=== PATIENT | male | born 1945 | race Caucasian/White ===

== ENCOUNTER 2017-10-03 07:58 | Inpatient (IN) ==
--- NOTE | 2017-10-03 08:11 | Emergency Department Report ---
Medical Clearance HPI - General Stated complaint: Olvin clearence Time Seen by Provider: 10/03/17 08:08 Source: patient, family Mode of arrival: ambulatory Limitations: no limitations - History of Present Illness HPI Narrative: Patient is a 71-year-old male, presents emergency room for "medical clearance". Patient recently diagnosis of Alzheimer's, has been having increasing hallucinations and paranoia. [facility] was contacted patient's screening appropriately, however patient was referred to the ER for medical clearance. Patient denies any systemic signs or symptoms with the exception of a mild cough in the last 24 hours with congestion. MD complaint: medical clearance requested Reason for Medical Clearance: psychiatric condition Home medications: Home Medications Medication Instructions Recorded Confirmed Dabigatran [Pradaxa] 1 cap PO BID 10/03/17 10/03/17 Fenofibrate [Lofibra] 160 mg PO DAILY 10/03/17 10/03/17 LORazepam [Ativan] 0.5 mg PO BID PRN 10/03/17 10/03/17 Lisinopril [Zestril] 20 mg PO BID 10/03/17 10/03/17 Multivitamin [One Daily] 1 tab PO DAILY 10/03/17 10/03/17 Quetiapine Fumarate [Seroquel] 2 mg PO TID 10/03/17 10/03/17 Sertraline [Zoloft] 1 tab PO DAILY 10/03/17 10/03/17 Triamterene/Hydrochlorothiazid 0.5 tab PO DAILY 10/03/17 10/03/17 [Triamterene-Hctz 37.5-25 mg Cp] dilTIAZem HCl [Dilt-Xr] 1 tab PO DAILY 10/03/17 10/03/17 Allergies/Adverse reactions: Allergies Allergy/AdvReac Type Severity Reaction Status Date / Time No Known Allergies Allergy Verified 10/03/17 08:05 Review of Systems Constitutional: Denies: fever, chills, weakness Eyes: Denies: eye pain, eye discharge ENT: Reports: congestion. Denies: throat pain, dental pain Cardiovascular: Denies: chest pain, palpitations, dyspnea on exertion Respiratory: Reports: cough. Denies: dyspnea, wheezes, hemoptysis Gastrointestinal: Denies: abdominal pain, nausea, vomiting Genitourinary: Denies: dysuria, frequency Musculoskeletal: Denies: back pain Psychiatric: Denies: anxiety, depression Endocrine: Denies: fatigue, heat or cold intolerance PFSH Patient Stated Medical History Alzheimer's Disease Yes Cardiac Arrhythmia Yes: afib Hypertension Yes Hx Benign Prostatic Yes: 2017 Hyperplasia - Social History Smoking status: Never smoker Substance use type: does not use Alcohol intake frequency: does not drink Physical Exam - Limitations Limitations: no limitations - General General appearance: alert, in no apparent distress - Head Head exam: normocephalic - Eye Eye exam: Present: PERRL, EOMI - ENT ENT exam: Present: normal oropharynx, mucous membranes moist - Neck Neck exam: Present: full ROM, trachea midline. Absent: tenderness - Chest Chest inspection: Present: symmetric chest wall rise. Absent: tenderness - Respiratory Respiratory exam: Present: normal lung sounds bilaterally. Absent: respiratory distress, wheezes, stridor - Cardiovascular Cardiovascular exam: Present: regular rate, normal rhythm, normal heart sounds - Abdominal Exam Abdominal exam: Present: soft, normal bowel sounds. Absent: distention, tenderness - Extremities Exam Extremities exam: Present: other (patient with bilateral 2+ pitting edema) - Back Exam Back exam: Present: full ROM - Skin Skin exam: Present: warm, dry - Neurological Exam Neurological exam: Present: alert, oriented X3 - Psychiatric Psychiatric exam: Present: normal affect, normal mood Course Vital Signs Temperature 97.4 F 10/03/17 08:06 Pulse Rate 82 10/03/17 08:06 Respiratory Rate 16 10/03/17 08:06 Blood Pressure 132/83 10/03/17 08:06 Pulse Oximetry 95 10/03/17 08:06 Temperature 97.4 F 10/03/17 08:06 Pulse Rate 82 10/03/17 08:06 Respiratory Rate 16 10/03/17 08:06 Blood Pressure 132/83 10/03/17 08:06 Pulse Oximetry 95 10/03/17 08:06 Medical Clearance - Medical Records Attestation: I reviewed the patient's medical records. - Lab Data Attestation: I reviewed the patient's lab results. Result diagrams: 10/03/17 08:29 10/03/17 08:29 Lab Results 10/03/17 10/03/17 10/03/17 Range/Units 08:29 08:29 09:05 WBC 4.2 L (4.5-11.0) T/MM3 RBC 4.27 L (4.50-5.90) M/MM3 Hgb 10.1 L (13.5-17.5) GM/DL Hct 34.3 L (41-53) % MCV 80.3 (80-100) UM3 MCH 23.7 L (26-34) UUG MCHC 29.4 L (31-37) GM/DL RDW Std Deviation 53.2 H (36.9-50.2) FL Plt Count 368 (130-400) T/MM3 MPV 8.5 L (9.4-12.4) UM3 Immature Gran % (Auto) 0.2 (0.0-0.5) % Neut % (Auto) 64.0 (33-66) % Lymph % (Auto) 24.0 (23-45) % Dent % (Auto) 9.6 H (0-9.0) % Eos % (Auto) 1.7 (0-4) % Baso % (Auto) 0.5 (0-2) % Neut # (Auto) 2.7 (1.8-7.7) T/MM3 Lymph # (Auto) 1.0 (1-4.8) T/MM3 Dent # (Auto) 0.4 (0-0.8) T/MM3 Eos # (Auto) 0.1 (0-0.5) T/MM3 Baso # (Auto) 0.0 (0-0.2) T/MM3 Abs Immat Gran (auto) 0.01 (0.00-0.03) T/MM3 Turbidity < 20 (0-20) Sodium 142 (134-144) MEQ/L Potassium 4.2 (3.6-5) MEQ/L Chloride 105 (98-107) MEQ/L Carbon Dioxide 28 (22-30) MEQ/L Anion Gap 9 (5-15) MEQ/L BUN 22.0 H (9-20) MG/DL Creatinine 1.0 (0.8-1.5) MG/DL GFR Calculation 73 BUN/Creatinine Ratio 22 (6-26) RATIO Glucose 93 (75-110) MG/DL Calculated Osmolality 276 (261-280) MOSM/KG Calcium 9.5 (8.4-10.2) MG/DL Total Bilirubin 0.20 (0.20-1.30) MG/DL Icterus Index < 2 (0-7) AST 29 (17-59) U/L ALT 35 (21-72) U/L Alkaline Phosphatase 50 (38-126) U/L Total Protein 6.9 (6.3-8.2) G/DL Albumin 4.1 (3.5-5.0) G/DL Globulin 2.8 (2.4-3.6) G/DL Albumin/Globulin Ratio 1.5 (1.1-2.2) RATIO Specimen Hemolysis < 15 (0-25) Ur Collection Type Urine, void-cc/notcc Urine Color Yellow (YELLOW) Urine Clarity Clear Urine pH 6.0 (5.0-8.0) Ur Specific Wentworth <=1.005 L (1.015-1.025) Urine Protein Negative (NEGATIVE) Urine Glucose (UA) Negative (NEGATIVE) Urine Ketones Negative (NEGATIVE) Urine Occult Blood Negative (NEGATIVE) Urine Nitrate Negative (NEGATIVE) Urine Bilirubin Negative (NEGATIVE) Urine Urobilinogen 0.2 (NORMAL) EU/DL Ur Leukocyte Esterase Negative (NEGATIVE) Urinalysis Comment Microscopic not ind. - Radiology Data Attestation: I reviewed the patient's radiology results. Chest x-ray: Cardiomegaly, no acute infiltrates - EKG Data EKG #1 EKG attestation: Yes: I reviewed and interpreted this EKG. Rate: normal Rhythm: A.Fib Calvert/QRS: normal Interpretation: no acute changes Disposition Clinical Impression: Alzheimer's dementia with behavioral disturbance Qualifiers: Alzheimer's disease onset: unspecified onset Qualified Code(s): G30.9 - Alzheimer's disease, unspecified; F02.81 - Dementia in other diseases classified elsewhere with behavioral disturbance [place] 64 [place] [facility] Condition: Stable Prescriptions: No Action LORazepam [Ativan] 0.5 mg PO BID PRN PRN Reason: Anxiety Quetiapine Fumarate [Seroquel] 2 mg PO TID Sertraline [Zoloft] 1 tab PO DAILY Dabigatran [Pradaxa] 1 cap PO BID Triamterene/Hydrochlorothiazid [Triamterene-Hctz 37.5-25 mg Cp] 0.5 tab PO DAILY Lisinopril [Zestril] 20 mg PO BID dilTIAZem HCl [Dilt-Xr] 1 tab PO DAILY Multivitamin [One Daily] 1 tab PO DAILY Fenofibrate [Lofibra] 160 mg PO DAILY Time of Disposition: 09:14 - Seen By: physician
--- OUTSIDE RECORDS SUMMARY | 2017-10-03 08:47 | External Medical Summary | Continuity of Care Document ---
:1945 Author Organization [facility] Care Team Providers Name Role Phone LOYDA MEYER Admitting Physician LOYDA MEYER Attending Physician Hospital Admission Diagnosis No data in the System Social History Element Code Description Smoking Start Date End Date Description Status Code System Smoking Status 969350728 Never smoker SNOMED-CT Problems Code Code System Problem Name Start Date End Date Status 99438934 SNOMED-CT Urinary tract 12/27/2016 Active infectious disease UTI SYMPTOMS 01/28/2016 Active LEFT EYE 06/11/2015 Active IRRITATION Medications RxNorm Medication Dose Route Instructions Indications Start End Status Date Date 06450 ferrous sulfate Oral orally 3 Active times per week (pt unsure of dosage) 5487 Hydrochlorothiazid Oral orally 2 Active e times per day (pt unsure of dose) 50631 Lisinopril Oral orally every Active day (pt unsure of dose) 6102830 rivaroxaban 20 MG 20 Oral orally every Active Oral Tablet milligram day (administer with evening meal;) 1191 Aspirin 81 Oral orally 3 No milligram times per Longer week Active 8703 Fenofibrate Oral orally every No day (swallow Longer whole; do not Active crush, chew, break, dissolve, or cutpt unsure of dose) 6918 Metoprolol Oral orally once No (pt unsure of Longer dose) Active Allergies Code Code Allergy Type Reaction Severity Start End Status System Substance Date Date 7944 RXNorm Penicillins Drug Unknown 06/11/20 Active allergy 15 Results No data in the system Vital Signs No data in the system Plan of Care No data in the system Procedures No data in the system Encounters No data in the system Immunizations No data in the system Functional Status No data in the system Hospital Discharge Instructions No data in the system
--- OUTSIDE RECORDS SUMMARY | 2017-10-03 08:47 | External Medical Summary | Continuity of Care Document ---
:1945 Author Organization [facility] Care Team Providers Name Role Phone LOYDA MEYER Admitting Physician LOYDA MEYER Attending Physician Hospital Admission Diagnosis No data in the System Social History Element Code Description Smoking Start Date End Date Description Status Code System Smoking Status [id number] Never smoker SNOMED-CT Problems Code Code System Problem Name Start Date End Date Status PAIN UNDER R 05/04/2017 Active AXILLA 52309081 SNOMED-CT Urinary tract 12/27/2016 Active infectious disease UTI SYMPTOMS 01/28/2016 Active LEFT EYE 06/11/2015 Active IRRITATION Medications RxNorm Medication Dose Route Instructions Indications Start End Status Date Date 0588474 dabigatran 150 oral orally 2 times Active etexilate 150 MG milligram per day Oral Capsule (administer at approximately the same time(s) each day;) 3443 Diltiazem 180 oral orally every Active milligram morning 887418 Fenofibrate 160 160 oral orally every Active MG Oral Tablet milligram day 524763 Hydrochlorothiazi 0.5 oral orally every Active de 25 MG / capsule morning Triamterene 37.5 (administer MG Oral Capsule after a meal;) 528644 Lisinopril 20 MG 20 oral orally 2 times Active Oral Tablet milligram per day (pt unsure of dose) 448437 rivastigmine 1.5 oral orally 2 times Active milligram per day 1191 Aspirin 81 oral orally 3 times No milligram per week Longer Active 8703 Fenofibrate oral orally every No day (swallow Longer whole; do not Active crush, chew, break, dissolve, or cutpt unsure of dose) 82981 ferrous sulfate oral orally 3 times No per week (pt Longer unsure of Active dosage) 5487 Hydrochlorothiazi oral orally 2 times No de per day (pt Longer unsure of Active dose) 6918 Metoprolol oral orally once No (pt unsure of Longer dose) Active 0578311 rivaroxaban 20 MG 20 oral orally every No Oral Tablet milligram day Longer (administer Active with evening meal;) Allergies Code Code Allergy Type Reaction Severity Start End Status System Substance Date Date 7985 RXNorm Penicillins Drug Unknown 06/11/20 Active allergy 15 Results Laboratory Results Order: UrinalysisLegend: D=Delta, H=High, L =Low, HH=Critical High, LL=Critical Low, AA=Critical Alpha-Numeric, C=Corrected , A=Abnormal LOINC Test Result Flag Range Units Date 5778-6 Yellow 07/20/2017 1Color Ur 13:35 08904-3 Clear 07/20/2017 1Clarity Ur 13:35 2966-0 1Sp 1.015 1.005-1.030 07/20/2017 Gr 24h Ur 13:35 2756-5 1pH 7.0 5.0-7.0 07/20/2017 Ur 13:35 89261-5 Negative NEGATIVE 07/20/2017 1Leukocyte 13:35 esterase Ur-aCnc 13067-6 Negative NEGATIVE 07/20/2017 1Nitrite Ur Ql 13:35 Strip.auto 69185-9 Negative NEGATIVE 07/20/2017 1Prot 13:35 Tiss-mCnt 2349-9 Negative NEGATIVE 07/20/2017 1Glucose Ur Ql 13:35 58561-1 1MEK Negative NEGATIVE 07/20/2017 Ur-mCnc 13:35 1977-8 Negative NEGATIVE 07/20/2017 1Bilirub Ur Ql 13:35 02346-3 0.2 <=1.0 07/20/2017 1Urobilinogen 13:35 Ur Ql 933-2 1Bld Negative NEGATIVE 07/20/2017 Prod Typ BPU 13:35 00800-9 N 07/20/2017 1Micro UrnS 13:35 Performing Lab Footnotes:[id number] [address] [place] [id number] - [facility] Vital Signs No data in the system Plan of Care No data in the system Procedures No data in the system Encounters No data in the system Immunizations Vaccine Code Code System Vaccine Name Date Status 141 CVX Influenza, 04/26/2017 Completed seasonal, injectable Functional Status No data in the system Hospital Discharge Instructions No data in the system
--- OUTSIDE RECORDS SUMMARY | 2017-10-03 08:47 | External Medical Summary | Continuity of Care Document ---
:1944 Author Organization [facility] Care Team Providers Name Role Phone [employer] Unavailable Unavailable Encounters Location Location Encounter Encounter Reason Attending ADM DC Status Source Details Type Number For Provider Date Date Visit Ritesh BRUNO Active [facility]
--- OUTSIDE RECORDS SUMMARY | 2017-10-03 08:47 | External Medical Summary | Encounter Summary ---
:1944 Author Organization [facility] Address [address] [place] [address] Phone Care Team Providers Name Role Phone Henrik Brown MD Primary Care Provider Jorgito Varner MD Unavailable Reason for Visit Reason Comments General Question medication question Encounter Details Date Type Department Care Team Description 09/08/2017 Telephone [facility] René Navas General Question Physicians - Neurology (medication question) [address] [facility] [address] [facility] [address] [place] [address] [place] [address] [place] [address] Social History Tobacco Use Types Packs/Day Years Used Date Never Smoker Smokeless Tobacco: Never Used Alcohol Use Drinks/Week oz/Week Comments No Sex Assigned at Date Recorded Not on file as of this encounter Miscellaneous Notes Telephone Encounter - Gricel Philip LPN - 09/22/2017 3:21 PM Ruby called today to follow up with our previous conversation regarding the Seroquel. She stated that she has now, since the last time we spoke, have increased it all the way up to 6 tabs a day and it is not helping anything at all. This nurse has tried to call Dr. Henrik Brown's office today with busy signal then the next time, the manager package relayed that Dr. Brown has been out of the office forthe passed 2 weeks. At this time, Kassie called and it was relayed that Dr. Brown had been out of the office for the past 2 weeks and Kassie relayed that she has been speaking with Dr. Varner, the patients Psychiatrist and he has been helping with figuring out the Seroquel dosing as well as added Ativan0.5mg BID/PRN. At this time it was suggested to continue the medication management with Dr. Varner and if there is anything that he would like to discuss with our doctor to call our office.Telephone Encounter - Gricel Philip, ALO - 09/08/2017 12:47 PM PROCESS OWNER Kassie called to relay that at the apt a few weeks ago, the doctor started Seroquel 25mg at bedtime with the suggestion that it could be increased if needed. Kassie relayed that she did not feel like the medication was not working , he is still agitated and the hallucinations are still continuing.At this time , this nurse relayed that we are not able to take the hallucinations away, we are able to help deal with the behaviors that come from them. Kassie stated that she understood, this nurse asked what types of things is he doing when he takes the medication to let you know it is not working? Kassie relayed that for about 2 weeks she was giving the 25mg dose at bedtime, and he was sleeping better but not well, so she increased it herself to 2 tabs=50mg. Last week per Kassie, they saw their PCP and he suggested that maybe he just needed and extra dose in the morning with the bedtime dose to keep him calmer throughout the day , but to double check with our office to see if that was an appropriate action. Kassie stated that the reason for the suggestion was because around noon until about 7 or8 when she gives the bedtime dose of 50mg, he is just very combative, agitated. Kassie said that he has been on the 50mg for a week now and this morning she went ahead and started the suggestion of theprimary care and gave him a 25mg dose this morning and was going to watch and see how long it will work for today. Kassie wanted to know if this would be ok with Dr. Navas. This nurse relayed that this note would be routed to the doctor for further review and instructions and a call back would be made. At this time, it is noted that this patient is now taking Seroquel 25mg in the morning and 50mg at bedtime for a total of 75mg for the day. This nurse will follow up at the end of the day to seehow the 25mg AM dose went.in this encounter Plan of Treatment Not on fileas of this encounter Visit Diagnoses Not on filein this encounter
--- OUTSIDE RECORDS SUMMARY | 2017-10-03 08:47 | External Medical Summary | Summary of Care ---
:1945 Author Name Mariaelena Lee M.D. Address Unavailable Unavailable , Care Team Providers Name Role Phone Mariaelena Lee M.D. [place] Unavailable Unavailable Henrik Brown Unavailable Unavailable Unavailable Unavailable Unavailable Functional Status Functional Status Health Issues Name Dates Details Functional status health issues are not documented Status: Cognitive Status Health Issues Name Dates Details Cognitive status health issues are not documented Status: Problems Name Dates Details Memory loss (780.93, R41.3) Status: Active Hallucinations, visual (368.16, R44.1) Status: Active Low back pain with right-sided sciatica (724.3, M54.41) Status: Active Medications Name Dates Details AmLODIPine Besylate 5 MG Oral Tablet TAKE 1 TABLET DAILY. Refills: 0 Hudson Lee M.D. Start 14-Jun-2016 Active Lisinopril 20 MG Oral Tablet TAKE 1 TABLET TWICE DAILY. Refills: 0 Hudson Lee M.D. Start 14-Jun-2016 Active Triamterene-HCTZ 75-50 MG Oral Tablet TAKE 1/2 TABLET DAILY. Refills: 0 Hudson Lee M.D. Start 14-Jun-2016 Active Fenofibrate 160 MG Oral Tablet TAKE 1 TABLET DAILY. Quantity: 30 Refills: 0 Hudson Lee M.D. Start 14-Jun-2016 Active Aspirin 81 MG Oral Tablet Delayed Release TAKE 1 TABLET DAILY. Refills: 0 Hudson Lee M.D. Start 14-Jun-2016 Active Allergy 10 MG Oral Tablet TAKE 1 TABLET DAILY. Refills: 0 Hudson Lee M.D. Start 14-Jun-2016 Active Tylenol Extra Strength 500 MG Oral Tablet TAKE 2 TABLETS EVERY 6 HOURS Refills: 0 Hudson Lee M.D. Start 14-Jun-2016 Active Advil 200 MG Oral Capsule TAKE 1 CAPSULE EVERY 4 TO 6 HOURS. Refills: 0 Hudson Lee M.D. Start 14-Jun-2016 Active Allergies and Adverse Reactions Name Dates Details Penicillins (Allergy) Status: Active Past Medical History Name Dates Details History of dizziness (V13.89, Z87.898) Status: Resolved History of Enlarged prostate (600.00, N40.0) Status: Resolved History of fracture of clavicle (V15.51, Z87.81) Status: Resolved History of hematuria (V13.09, Z87.448) Status: Resolved History of hypertension (V12.59, Z86.79) Status: Resolved History of Kidney stone on left side (592.0, N20.0) Status: Resolved History of Numbness of right hand (782.0, R20.0) Status: Resolved History of presbycusis (V12.49, Z86.69) Status: Resolved History of sciatica (V12.49, Z86.69) Status: Resolved History of Tinnitus of both ears (388.30, H93.13) Status: Resolved Procedures Procedure Dates Details History of Abdominal Surgery History of Colonoscopy (Fiberoptic) Procedures not documented Immunization Name Dates Details Immunizations not documented Family History Mother Name Dates Details Family history of Alzheimer's disease (V17.2, Z82.0) Status: Active Father Name Dates Details Family history of dementia (V17.2, Z81.8) Status: Active Family history of Parkinson's disease (V17.2, Z82.0) Status: Active Social History Name Dates Details - Status: Smoking Status Name Dates Details Never smoker Vital Signs Date Test Result Details 14-Jun-2016 11:08 BP Systolic 138 mm[Hg] Status: Comments: Location: LUE; Position: Sitting BP Diastolic 82 mm[Hg] Status: Comments: Location: LUE; Position: Sitting Heart Rate 74 /min Status: Comments: Location: ; Height 70 in Status: Weight 234.2 lb Status: Physical Findings 96 Status: Comments: O2 Saturation Body Mass Index Calculated 33.6 kg/m2 Status: Body Surface Area Calculated 2.23 m2 Status: Results Date Description Value Details Results not documented Plan of Care Name Dates Details Planned Observations Planned Goals not documented Planned Encounters Appointment; Provider: Hudson Lee M.D. On 03-Sep-2016 11:30 Instructions Name Dates Details Instructions not documented Encounters Appointment; Hudson Lee M.D. On 14-Jun-2016 Encounter Diagnosis: Problem not documented 11:00
--- OUTSIDE RECORDS SUMMARY | 2017-10-03 08:47 | External Medical Summary | Encounter Summary ---
:1945 Author Organization [facility] Address [address] [place] [address] Phone Care Team Providers Name Role Phone Henrik Brown MD Primary Care Provider Jorgito Varner MD Unavailable Reason for Visit Reason Comments General Question notes Encounter Details Date Type Department Care Team Description 09/23/2017 Telephone [facility] René Navas General Question Physicians - Neurology (notes) [address] [facility] [address] [facility] [address] [place] [address] [place] [address] [place], [place] [id number] Social History Tobacco Use Types Packs/Day Years Used Date Never Smoker Smokeless Tobacco: Never Used Alcohol Use Drinks/Week oz/Week Comments No Sex Assigned at Date Recorded Not on file as of this encounter Miscellaneous Notes Telephone Encounter - Gricel Philip LPN - 09/23/2017 2:38 PM CSTLinda called to ask if the last visit note could be faxed to both Dr. Brown and Dr. Varner as they both have not received any notes yet. At this time, last visit note has been faxed to both doctors with confirmation of receipts. Kassie was notified.in this encounter Plan of Treatment Not on fileas of this encounter Visit Diagnoses Not on filein this encounter
--- OUTSIDE RECORDS SUMMARY | 2017-10-03 08:47 | External Medical Summary | Encounter Summary ---
:1945 Author Organization [facility] Address [address] [place] [address] Phone Care Team Providers Name Role Phone Henrik Brown MD Primary Care Provider Reason for Visit Reason Comments Memory Loss New patient Consult, Test & Treat (Routine) Status Reason Specialty Diagnoses / Referred By Referred To Procedures Contact Contact No Auth Needed Neurology Diagnoses DEMENTIA Swerdlow, Procedures NEW PATIENT MD René [address] [place] [address] Encounter Details Date Type Department Care Team Description 08/10/2017 Office Visit [facility] René Navas, Alzheimer' s disease of Physicians - other onset with Neurology [address] behavioral disturbance [address] (Primary Dx) [address] [place] [phone] Social History Tobacco Use Types Packs/Day Years Used Date Never Smoker Smokeless Tobacco: Never Used Tobacco Cessation: Counseling Given: No Alcohol Use Drinks/Week oz/Week Comments No Sex Assigned at Date Recorded Not on file as of this encounter Last Filed Vital Signs Vital Sign Reading Time Taken Blood Pressure 150/98 08/10/2017 2:09 PM JAVA J2EE TECHNICAL LEAD Pulse 91 08/10/2017 2:09 PM JAVA J2EE TECHNICAL LEAD Temperature - - Respiratory Rate - - Oxygen Saturation - - Inhaled Oxygen Concentration - - Weight 125.6 kg (277 lb) 08/10/2017 2:09 PM JAVA J2EE TECHNICAL LEAD Height 177.8 cm (5' 10") 08/10/2017 2:09 PM JAVA J2EE TECHNICAL LEAD Body Mass Index 39.75 08/10/2017 2:09 PM JAVA J2EE TECHNICAL LEAD in this encounter Progress Notes René Navas MD - 08/10/2017 3:30 PM CSTFormatting of this note may be different from the original. Date of Service: 08/10/2017 Subjective: Mayco Rose is a 71 y.o. male. History of Present Illness Lizzy a 71 y.o.referred to us for issues of cognition. With hallucinations. History obtained from: patient and (Kassie) and son (Jose Luis) Duration: ~2 years of cognitive change, about 1.5 years of hallucinations. Course: Progressive Severity: Loss of ADL independence Other Course Details: Card playing confusion noted about 2 years ago. Hallucinations since summer. Saw Dr. Brown about his memory issues about 1.[address] Brown referred him to a neurologist who did an EEG, who put him on galantamine, but the hallucinations worsened. He was switched to rivastigmine, which Miguelangel felt made him worse. He has not tried donepezil or memory. There is concern for AD or DLB. 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 The hallucinations are of people and animals; they interfere with his daily life in that atnight, he spends excessive time securing the house at night to try and keep people out. When he is redirected about a hallucination, he accepts it easily enough, but then forgets about the redirection and goes back to that. The other day he did not recognize his . Also some delusions: he is convinced his neighbor is "a drug dealer" who is dealing drugs. AD8 Problems with judgement: Yes Reduced interest in hobbies or activities: Yes Repeats questions, stories, or statements: Yes (can no longer play canasta) Trouble learning to use tools, appliances, gadgets: Yes No longer texts Forgets correct month or year: Yes Difficulty handing financial matters or bills: Yes Difficulty remembering appointments: Yes Consistent problems with thinking or memory: Yes OTHER FUNCTIONS Problems with shopping: Yes Problems with cooking: Yes Problems with driving: Yes Problems with managing medications: Yes PREVIOUS EVALUATIONS Labs Done on the outside Imaging MRI recently done x2. 08/07 MRI: scattered small patches of WMH, mostly posteriorly. Diffuseatrophy. There is some relatively pronounced anterior temporal atrophy. Neuropsych Testing: Other Tests: PAST MEDICAL HISTORY Relevant PMH: afib, htn, dementia MEDICATIONS Relevant Medications:Includes sertraline, pradaxa ALLERGIES Allergies: Allergies no known allergies FAMILY HISTORY Relevant Family History: Parent with senile dementia (mother dx'd with AD in her 70's); dad had dementia in his 80s SOCIAL HISTORY Current or past heavy alcohol use: No Education level: college Occupation: CPA, [employer] Lives with: with in [facility] REVIEW OF SYSTEMS Depressed mood: Yes Sleep problems: No Hallucinations: Yes Balance problems: No Urinary incontinence: No, recent turp Other system problems: Review of Systems Constitutional: Negative for chills. HENT: Negative for facial swelling. Eyes: Negative for discharge. Respiratory: Negative for choking. Cardiovascular: Negative for palpitations. Gastrointestinal: Negative for vomiting. Genitourinary: Negative for flank pain. Skin: Negative for wound. Neurological: Negative for seizures. Hematological: Negative for adenopathy. Psychiatric/Behavioral: Negative for self-injury. Objective: Cranberry 500 mg cap Take 1 capsule by mouth daily. dabigatran (PRADAXA) 150 mg capsule Take 150 mg by mouth twice daily. diltiazem CD (CARDIZEM CD) 180 mg capsule Take 180 mg by mouth daily. fenofibrate(+) (TRIGLIDE) 160 mg tablet Take 160 mg by mouth daily. Take with food. lisinopril (PRINIVIL, ZESTRIL) 40 mg tablet Take 40 mg by mouth twice daily. MULTIVITAMIN PO Take by mouth daily. sertraline (ZOLOFT) 50 mg tablet Take 50 mg by mouth daily. triamterene-hydrochlorothiazide (DYAZIDE) 37.5-25 mg capsule Take 0.5 capsules by mouth every morning. Vitals: 08/10/17 1409 BP: (!) 150/98 Pulse: 91 Weight: 125.6 kg (277 lb) Height: 177.8 cm (70") Body mass index is 39.75 kg/(m^2). Physical Exam GENERAL EXAM Overall state: NAD HEENT: Unremarkable Fundoscopic: Unremarkable Craniocervical Bruits and Pulses: Unremarkable Lymphadenopathy, thyroid masses, nuchal rigidity: absent Cardiac: Occasional arrhythmic beat noted Extremities: Clubbing cyanosis, or edema absent COGNITIVE EXAM Orientation Person: Yes Place: Yes first floor Time: Yes Time Questions: 5/5 Place questions: 4/5 Repeat 3 words: 3/3 Name and repeat 3/3 WORLD backwards (or equivalent task): 5 3 step command: 3/3 Recall 3 words: 1/3 Read, draw, write a sentence: 10/22 TOTAL: Remote memory Naming of last five presidents: 3/ Trump, Sadam, Levy, Fadi, ? Memory ECR first pass encodin/4 11/23 10/23 10/23 ECR delayed free recall: ECR delayed cued recall: 05/07 Borja Figure: Substantial difficulties and errors in copying the picture. Profound forgetting after20 min. Visuospatial Luria figure ground analysis: 08/24 (misses at and hand) Carbone figures: 0 Navon figures: Clock drawin/7 (arms not proportiona) Constructional praxis: Language Animal naming number: 14 Animal naming perserverations: 3 F word naming number: Confrontational naming: Object knowledge retained: Repetition maintained: Alexia present: Agraphia present: Executive 2 Quarters, 2 dimes, 2 nickels: Quarters in $6.75: 27 2 step word-problem: 31x12 6 times 31: 276 Oral Trailmaking: minor difficulties Luria 3 step command: Praxis Cut loaf of bread: ok Hammer a nail: ok GENERAL NEURO EXAM Cranial Nerves: Cranial nerves 2-12 INTACT. Motor: Symmetric and appropriate DTR's: Symmetric Yes Sensation: Gross deficits not noted Coordination: Gross deficits not noted Gait: Normal station and base Walks tandem: With great diffficulty Romberg: absent Postural reflexes: Unimpaired Gait apraxia: absent Other notable General Neuro Exam Findings: Assessment and Plan: Formulation Syndrome of Cognition Abnormal signs: Memory dysfunction, Executive dysfunction and visuspatial dysfunction Localization: Bihemispheral, cortices and Mesial temporal structures Diagnosis: Alzheimer's disease Differential diagnosis: Inflammatory disorders, Vascular disorders and Metabolic disorders Other diagnositic issues: AD is first thought, with diff dx including DLB, FTD, and vascular dementia Plan Diagnostic tests: Discussed APOE testing, PET, amyloid studies. Will defer for now. Treatment: Other discussed interventions Will empirically try seroquel 25 mg, and titrate up as needed. Discussed side effects. They want to start first with trying to address the hallucinations. If wecan get the hallucinations under control, will try adding aricept. Follow Up: ~6 months with STAMP COLLECTOR Total Visit Time: Time spent in face to face counseling and coordination of care: Topics discussed: in this encounter Plan of Treatment Not on fileas of this encounter Visit Diagnoses Diagnosis Alzheimer's disease of other onset with behavioral disturbance - Primary
--- OUTSIDE RECORDS SUMMARY | 2017-10-03 08:47 | External Medical Summary | Continuity of Care Document ---
:1945 Author Organization [facility] Care Team Providers Name Role Phone LOYDA MEYER Admitting Physician LOYDA MEYER Attending Physician Hospital Admission Diagnosis No data in the System Social History Element Code Description Smoking Start Date End Date Description Status Code System Smoking Status 816494741 Never smoker SNOMED-CT Problems Code Code System Problem Name Start Date End Date Status UTI SYMPTOMS 01/28/2016 Active LEFT EYE 06/11/2015 Active IRRITATION Medications RxNorm Medication Dose Route Instructions Indications Start End Status Date Date 1191 Aspirin 81 Oral orally 3 Active milligram times per week 8703 Fenofibrate Oral orally every Active day (swallow whole; do not crush, chew, break, dissolve, or cutpt unsure of dose) 10200 ferrous sulfate Oral orally 3 Active times per week (pt unsure of dosage) 5487 Hydrochlorothiazide Oral orally 2 Active times per day (pt unsure of dose) 50942 Lisinopril Oral orally every Active day (pt unsure of dose) 6918 Metoprolol Oral orally once Active (pt unsure of dose) Allergies Code Code Allergy Type Reaction Severity Start End Status System Substance Date Date 7918 RXNorm Penicillins Drug Unknown 06/11/20 Active allergy 15 Results Radiology Results Order: MRLUMWO MR Lumbar W/O ContrastExam Completion Date:07/05/2016 12:30INDICATION: low back pain with radiculopathyMR Lumbar W/O Contrast: Multiplanar and multisequence imaging was performedwithout gadolinium.Comparison: NoneFindings: Spondylosis. Degenerative disc disease at multiple lumbarinterspaces most marked at the L4-5 level. Diffuse facet arthropathy. There isslight degenerative posterior subluxation of L1 on L2. There is slightdegenerative anterior subluxationof L5 on the sacrum. The alignment andcurvature are otherwise maintained.Tiny right-sided disc protrusion at the L1-2 interspace. This is locatedfairly far laterally. This narrows the medial aspect of the right L1-2 neuralforamen. There is a right lateral disc protrusion at the L5-S1 interspace.This causes marked narrowing the right L5-S1 neural foramen however. Mildgeneralized bulging of the L4-5 disc. Severe central spinal stenosis at theL4-5 interspace level due to a combination of these hypertrophic anddegenerative changes. There is also narrowing of the L4-5 neural foraminabilaterally more marked on the right. No evidence of significant stenosis atthe remaining lumbar interspaces levels.Mild compression of the L1 vertebral body. This has a chronic benignappearance. There are no acute compression fractures.The conus medullaris is unremarkable.Released By JOYA PUGH, MDDate: 07/05/2016 13:48 Vital Signs No data in the system Plan of Care No data in the system Procedures No data in the system Encounters No data in the system Immunizations No data in the system Functional Status No data in the system Hospital Discharge Instructions No data in the system
--- OUTSIDE RECORDS SUMMARY | 2017-10-03 08:47 | External Medical Summary | Continuity of Care Document ---
:1945 Author Organization [facility] Care Team Providers Name Role Phone [facility] Admitting Physician Unavailable LOYDA MEYER Attending Physician Hospital Admission Diagnosis No data in the System Social History Element Code Description Smoking Start Date End Date Description Status Code System Smoking Status [id number] Unknown if ever SNOMED-CT smoked Problems Code Code System Problem Name Start Date End Date Status PAIN UNDER R 05/04/2017 Active AXILLA 38240005 SNOMED-CT Urinary tract 12/27/2016 Active infectious disease UTI SYMPTOMS 01/28/2016 Active LEFT EYE 06/11/2015 Active IRRITATION Medications RxNorm Medication Dose Route Instructions Indications Start End Status Date Date 5886234 dabigatran 150 oral orally 2 times Active etexilate 150 MG milligram per day Oral Capsule (administer at approximately the same time(s) each day;) 3443 Diltiazem 180 oral orally every Active milligram morning 043817 Fenofibrate 160 160 oral orally every Active MG Oral Tablet milligram day 515469 Hydrochlorothiazi 0.5 oral orally every Active de 25 MG / capsule morning Triamterene 37.5 (administer MG Oral Capsule after a meal;) 805895 Lisinopril 20 MG 20 oral orally 2 times Active Oral Tablet milligram per day (pt unsure of dose) 011238 rivastigmine 1.5 oral orally 2 times Active milligram per day 1191 Aspirin 81 oral orally 3 times No milligram per week Longer Active 8703 Fenofibrate oral orally every No day (swallow Longer whole; do not Active crush, chew, break, dissolve, or cutpt unsure of dose) 30561 ferrous sulfate oral orally 3 times No per week (pt Longer unsure of Active dosage) 5487 Hydrochlorothiazi oral orally 2 times No de per day (pt Longer unsure of Active dose) 6918 Metoprolol oral orally once No (pt unsure of Longer dose) Active 8053007 rivaroxaban 20 MG 20 oral orally every No Oral Tablet milligram day Longer (administer Active with evening meal;) Allergies Code Code Allergy Type Reaction Severity Start End Status System Substance Date Date 7986 RXNorm Penicillins Drug Unknown 06/11/20 Active allergy [...]
--- OUTSIDE RECORDS SUMMARY | 2017-10-03 08:47 | External Medical Summary | Continuity of Care Document ---
:1945 Author Organization [facility] Care Team Providers Name Role Phone EAGLE SAWANT Admitting Physician EAGLE SAWANT Attending Physician LOYDA MEYER Primary Care Physician Hospital Admission Diagnosis Code Admission Diagnosis Date [id number] Chronic atrial fibrillation Social History Element Code Description Smoking Start Date End Date Description Status Code System Smoking Status [id number] Never smoker SNOMED-CT Problems Code Code System Problem Name Start Date End Date Status PAIN UNDER R 05/04/2017 Active AXILLA 24513197 SNOMED-CT Urinary tract 12/27/2016 Active infectious disease UTI SYMPTOMS 01/28/2016 Active LEFT EYE 06/11/2015 Active IRRITATION Medications RxNorm Medication Dose Route Instructions Indications Start End Status Date Date 3795781 dabigatran 150 oral orally 2 times Active etexilate 150 MG milligram per day Oral Capsule (administer at approximately the same time(s) each day;) 3443 Diltiazem 180 oral orally every Active milligram morning 246478 Fenofibrate 160 160 oral orally every Active MG Oral Tablet milligram day 041000 Hydrochlorothiazi 0.5 oral orally every Active de 25 MG / capsule morning Triamterene 37.5 (administer MG Oral Capsule after a meal;) 862933 Lisinopril 20 MG 20 oral orally 2 times Active Oral Tablet milligram per day (pt unsure of dose) 092232 rivastigmine 1.5 oral orally 2 times Active milligram per day 1191 Aspirin 81 oral orally 3 times No milligram per week Longer Active 8703 Fenofibrate oral orally every No day (swallow Longer whole; do not Active crush, chew, break, dissolve, or cutpt unsure of dose) 47221 ferrous sulfate oral orally 3 times No per week (pt Longer unsure of Active dosage) 5487 Hydrochlorothiazi oral orally 2 times No de per day (pt Longer unsure of Active dose) 6918 Metoprolol oral orally once No (pt unsure of Longer dose) Active 2266534 rivaroxaban 20 MG 20 oral orally every [...] Procedures No data in the system Encounters Date Code Diagnosis Status (ICD10) - I482 CHRONIC ATRIAL FIBRILLATION Active Immunizations Vaccine Code Code System Vaccine Name Date Status 141 CVX Influenza, 04/26/2017 Completed seasonal, injectable Functional Status No data in the system Hospital Discharge Instructions No data in the system
--- OUTSIDE RECORDS SUMMARY | 2017-10-03 08:47 | External Medical Summary | Clinical Summary ---
:1945 Author Organization [facility] Address [address] [place] [address] Phone Care Team Providers Name Role Phone Henrik Brown MD Primary Care Provider Jorgito Varner MD Unavailable Source Comments Some departments are not documenting in the electronic medical record. If you do not see the information that you expected, contact Release of Information in the Health Information Management department at [phone] for further assistance in locating additional records.[facility] Allergies No Known Allergies Current Medications Prescription Sig. Disp. Refills Start Date End Date Status diltiazem CD (CARDIZEM Take 180 mg by Active CD) 180 mg capsule mouth daily. lisinopril (PRINIVIL, Take 40 mg by Active ZESTRIL) 40 mg tablet mouth twice daily. triamterene-hydrochlor Take 0.5 capsules Active othiazide (DYAZIDE) by mouth every 37.5-25 mg capsule morning. fenofibrate(+) Take 160 mg by Active (TRIGLIDE) 160 mg mouth daily. Take tablet with food. dabigatran (PRADAXA) Take 150 mg by Active 150 mg capsule mouth twice daily. sertraline (ZOLOFT) 50 Take 50 mg by Active mg tablet mouth daily. Cranberry 500 mg cap Take 1 capsule by Active mouth daily. MULTIVITAMIN PO Take by mouth Active daily. QUEtiapine (SEROQUEL) Take 1 tablet by 30 tablet 5 08/10/2017 Active 25 mg tablet mouth at bedtime daily. Encounters Date Type Specialty Care Team Description 09/23/2017 Telephone Neurology René Navas MD General Question ( notes) 09/08/2017 Telephone Neurology René Navas MD General Question ( medication question) 08/10/2017 Office Visit Neurology René Navas MD Alzheimer's disease of other onset with behavioral disturbance (Primary Dx) from Last 3 Months Family History Medical History Relation Name Comments Dementia Father Alzheimer's Mother Relation Name Status Comments Father Mother Social History Tobacco Use Types Packs/Day Years Used Date Never Smoker Smokeless Tobacco: Never Used Tobacco Cessation: Counseling Given: No Alcohol Use Drinks/Week oz/Week Comments No Sex Assigned at Date Recorded Not on file Last Filed Vital Signs Vital Sign Reading Time Taken Blood Pressure 150/98 08/10/2017 2:09 PM TUBE TELLER Pulse 91 08/10/2017 2:09 PM TUBE TELLER Temperature - - Respiratory Rate - - Oxygen Saturation - - Inhaled Oxygen Concentration - - Weight 125.6 kg (277 lb) 08/10/2017 2:09 PM TUBE TELLER Height 177.8 cm (5' 10") 08/10/2017 2:09 PM TUBE TELLER Body Mass Index 39.75 08/10/2017 2:09 PM TUBE TELLER Plan of Treatment Health Maintenance Due Date Last Done Comments HEPATITIS C SCREENING 1945 PHYSICAL (COMPREHENSIVE) EXAM 12/09/1951 PERTUSSIS VACCINE 12/09/1955 TETANUS VACCINE 1961 COLORECTAL CANCER SCREENING 1994 SHINGLES VACCINE 2004 PREVNAR/PNEUMOVAX (#1) 2009 INFLUENZA VACCINE 03/22/2017
--- OUTSIDE RECORDS SUMMARY | 2017-10-03 08:47 | External Medical Summary ---
:1945 Author Name [facility] Care Team Providers Name Role Phone MD BETSY, LOYDA Primary Care Provider [phone] Reason For Visit Chief Complaint R41.3, R44.1 Social History Functional Status Vital Signs Results Problems Encounter Diagnosis No relevant problems exist. Encounters Encounter Diagnosis No relevant problems exist. Plan of Care Procedures No relevant procedures performed. Immunizations No immunizations administered or ordered. Hospital Course Hospital Discharge Instructions Allergies, Adverse Reactions, Alerts Latex Allergy has not been assessed.IV Contrast Allergy has not been assessed. Medication Medication reconciliation has not been performed.
--- OUTSIDE RECORDS SUMMARY | 2017-10-03 08:48 | External Medical Summary | Continuity of Care Document ---
:1945 Author Organization [facility] Care Team Providers Name Role Phone ORESTES HERNANDEZ Admitting Physician Unavailable ORESTES HERNANDEZ Attending Physician Unavailable Hospital Admission Diagnosis Code Admission Diagnosis Date [id number] Blood in urine Social History Element Code Description Smoking Start Date End Date Description Status Code System Smoking Status [id number] Never smoker SNOMED-CT Problems Code Code System [...] break, dissolve, or cutpt unsure of dose) 52914 ferrous sulfate Oral orally 3 Active times per week (pt unsure of dosage) 5487 Hydrochlorothiazide Oral orally 2 Active times per day (pt unsure of dose) 18921 Lisinopril Oral orally every Active day (pt unsure of dose) 6918 Metoprolol Oral orally once Active (pt unsure of dose) Allergies Code Code Allergy Type Reaction Severity Start End Status System Substance Date Date 7986 RXNorm Penicillins Drug Unknown 06/11/20 Active allergy 15 Results Laboratory Results Order: CBC With Automated DifferentialLegend: D=Delta, H=High, L=Low, HH=Critical High, LL=Critical Low, AA=Critical Alpha-Numeric, C=Corrected, A=Abnormal LOINC Test Result Flag Range Units Date 6690-2 5.3 4.5-11.0 10^3/mm3 01/28/2016 1WBC # Bld 21:11 Auto 86351-7 4.12 L 4.50-5.90 10^6/mm3 01/28/2016 1Retics # 21:11 Auto 01074-9 13.3 L 13.5-17.5 g/dl 01/28/2016 1Hgb 21:11 BldV-mCnc 4544-3 39.6 L 41.0-53.0 % 01/28/2016 1Hct VFr Bld 21:11 Auto 787-2 96.1 82.0-100.0 10^6/mm3 01/28/2016 1MCV RBC Auto 21:11 785-6 32.3 27.0-34.0 pg 01/28/2016 1MCH RBC Qn 21:11 Auto 786-4 33.6 32.0-36.0 g/dl 01/28/2016 1MCHC RBC 21:11 Auto-mCnc 788-0 14.4 11.7-15.0 % 01/28/2016 1RDW RBC 21:11 Auto-Rto 777-3 261 150-450 10^3/mm3 01/28/2016 1Platelet # 21:11 Bld Auto 34025-7 8.9 7.4-10.4 01/28/2016 1PMV Bld 21:11 89772-8 64.7 40.0-74.0 % 01/28/2016 1Neutrophils 21:11 # CSF 19.7 14.0-46.0 % 01/28/2016 1LYMPH% 21:11 45134-8 12.6 4.0-13.0 % 01/28/2016 1CD43 Ag Tiss 21:11 Ql ImStn 711-2 2.4 <=4.0 % 01/28/2016 1Eosinophil # 21:11 Bld Auto 704-7 0.6 <=3.0 % 01/28/2016 1Basophils # 21:11 Bld Auto 751-8 3.5 1.8-7.8 01/28/2016 1Neutrophils 21:11 # Bld Auto 22588-8 1.1 0.7-4.5 01/28/2016 1Lymphocytes 21:11 # Bld 39079-9 0.7 0.1-1.0 01/28/2016 1CD43 Ag Tiss 21:11 Ql ImStn 711-2 0.13 <=4.00 01/28/2016 1Eosinophil # 21:11 Bld Auto 704-7 0.03 <=0.20 01/28/2016 1Basophils # 21:11 Bld Auto N 01/28/2016 2MANDIFF 21:11 58017-3 N 01/28/2016 2RBC Bld Auto 21:11 Performing Lab Footnotes:1[facility] - [id number] - [address], [place] [address]JYM - JULIA ASHRAF2[facility] - [id number] - [address] [place], [place] [id number] [place] [address] - Archaeologist:, Julia Ashraf MD - JULIA ASHRAF Order: Comprehensive Metabolic PanelLegend: D=Delta, H=High, L=Low, HH= Critical High, LL=Critical Low, AA=Critical Alpha-Numeric, C=Corrected, A= Abnormal LOINC Test Result Flag Range Units Date 2345-7 134 H 70-105 mg/dl 01/28/2016 1Glucose 21:11 SerPl-nc 3094-0 15 7-25 mg/dl 01/28/2016 1BUN 21:11 SerPl-nc 2160-0 1.2 0.6-1.3 mg/dl 01/28/2016 1Creat 21:11 SerPl-mCnc 05233-6 13 13-39 01/28/2016 1Creat/Urea 21:11 nit SerPl 2951-2 139 135-145 mmol/L 01/28/2016 1S[facility] 21:11 [facility] 34[facility]-8 3.8 3.5-5.1 mmol/L 01/28/2016 1Potassium 21:11 SerPl-mCnc 2075-0 108 H 98-107 mmol/l 01/28/2016 1Chloride 21:11 SerPl-sCnc 8-9 26 21-31 mmol/l 01/28/2016 1CO2 21:11 SerPl-sCnc 90262-1 9 9-16 mmol/L 01/28/2016 1Anion Gap 21:11 SerPl-sCnc 2692-2 291 277-298 mOsm/kg 01/28/2016 1Osmolality 21:11 SerPl 11392-8 9.0 8.2-10.0 mg/dl 01/28/2016 1Calcium 21:11 SerPl-mCnc 1742-6 22 7-52 IU/L 01/28/2016 1ALT 21:11 SerPl-cCnc 1920-8 34 13-39 IU/L 01/28/2016 1AST 21:11 SerPl-cCnc 1715-2 47 34-104 U/L 01/28/2016 1ACP 21:11 SerPl-cCnc 1975-2 0.6 0.3-1.0 mg/dl 01/28/2016 1Bilirub 21:11 SerPl-mCnc 2885-2 6.6 6.0-8.3 g/dL 01/28/2016 1Prot 21:11 SerPl-mCnc 1751-7 3.8 3.5-5.7 g/dl 01/28/2016 1Albumin 21:11 SerPl-mCnc 2336-6 2.8 2.3-3.2 g/dL 01/28/2016 1Globulin 21:11 Ser-mCnc 1759-0 1.4 1.2-2.0 01/28/2016 1Albumin/Lynn 21:11 b SerPl 63 60-116 GFRunits 01/28/2016 1GFR 21:11 Performing Lab Footnotes:1[facility] [id number] - [address], [place] [address]WHV - JULIA ASHRAF Order: Protime With INRLegend: D=Delta, H=High, L=Low, HH=Critical High, LL= Critical Low, AA=Critical Alpha-Numeric, C=Corrected, A=Abnormal LOINC Test Result Flag Range Units Date 1PT 11.0 9.1-11.6 Seconds 01/28/2016 21:11 64634-2 1INR p 1.07 0.90-1.15 01/28/2016 heparin 21:11 adsorption PPP Performing Lab Footnotes:[facility] - [id number] - [address] [place] [id number] - JULIA ASHRAF Order: Urinalysis With Microscopic ExamLegend: D=Delta, H=High, L=Low, HH= Critical High, LL=Critical Low, AA=Critical Alpha-Numeric, C=Corrected, A= Abnormal LOINC Test Result Flag Range Units Date 5778-6 Color Ur Red 6 20:40 32638-5 Clarity Cloudy Ur 6 20:40 2966-0 Sp Gr >=1.030 1.005-1.030 24h Ur 6 20:40 2756-5 pH Ur 5.5 5.0-7.0 6 20:40 30899-5 Negative NEGATIVE Leukocyte esterase 6 20:40 Ur-aCnc 07300-9 Nitrite Negative NEGATIVE Ur Ql Strip.auto 6 20:40 77576-4 Prot 100 mg/dL * NEGATIVE Tiss-mCnt 6 20:40 2349-9 Glucose Negative NEGATIVE Ur Ql 6 20:40 82323-0 MEK 5 mg/dL * NEGATIVE Ur-mCnc 6 20:40 1977-8 Bilirub Small * NEGATIVE Ur Ql 6 20:40 933-2 Bld Prod Large * NEGATIVE Typ BPU 6 20:40 26571-1 1.0 <=1.0 Urobilinogen Ur Ql 6 20:40 1WBC_UM 2-5 * 0-5 /HPF 6 20:40 5808-1 1RBC # Packed Field * 0-5 /HPF UrnS HPF 6 20:40 5787-7 1Epi 0-2 0-2 /HPF Cells #/area UrnS 6 20:40 HPF 70810-3 Few /HPF 1Bacteria UrnS Ql 6 20:40 Micro 26135-7 1Mucous none * NONE PRESENT /HPF Threads #/area 6 20:40 UrnS HPF 9842-6 1Casts 0 /lpf #/area UrnS LPF 6 20:40 13750-3 0 /HPF 1Crystals #/area 6 20:40 UrnS HPF 79052-1 1C trach N UrnS Ql Cult 6 20:40 Performing Lab Footnotes:1[facility] - [id number] - [address] [place] [id number] - JULIA ASHRAF Radiology Results Order: CTSTONE CT Stone ProtocolExam Completion Date:01/28/2016 20:54INDICATION: hx stones; hematuria; dysuriaCT Stone Protocol: Thin axial images of the abdomen and pelvis were performedwithout contrast.Comparison: None.Findings: Small nonobstructing stone in the midportion of the right kidney.No left-sided stones are seen. Neither kidney is obstructed. 1.9 x 1.3 cmstone in the urinary bladder. Mild thickening of the urinary bladder wall.This could be due to to incomplete distention. A low-grade chronic bladderoutlet obstruction is also a possibility. Mild enlargement of the prostate.Calcification within the prostate. Also seen is a dense calcification withinthelumen of the colon at the splenic flexure. The etiology of this isindeterminate. This is probably due to ingested material however. The exam isotherwise negative. The lung bases are clear. The gallbladder, liver,pancreas, and spleen are unremarkable. There is no bowel dilatation. No CTevidence of diverticulitis or appendicitis. No adenopathy or ascites is seen.Incidentally noted is lumbar spondylosis. Slight anterior wedging of the [id number] body. This has a chronic benign appearance.Released By BERTIN FRAUSTOate: 01/29/2016 08:25 Vital Signs Vitals Value Date Body Temperature 98.3 F 01/28/2016 Respiratory Rate 15 01/28/2016 O2% BldC Oximetry 94 01/28/2016 BP Systolic 155 mmHg 01/28/2016 BP Diastolic 92 mmHg 01/28/2016 Height 70 in 01/28/2016 Weight Measured 244.71 lbs 01/28/2016 BSA (Body Surface Area) 2.2742 01/28/2016 BMI (Body Mass Index) 35.4 01/28/2016 Plan of Care No data in the system Procedures No data in the system Encounters Date Code Diagnosis Status (ICD10) - N3001 ACUTE CYSTITIS WITH HEMATURIA Active Immunizations No data in the system Functional Status No data in the system Hospital Discharge Instructions No data in the system
--- OUTSIDE RECORDS SUMMARY | 2017-10-03 08:48 | External Medical Summary | Continuity of Care Document ---
:[address] [facility] Care Team Providers Name Role Phone LOYDA MEYER Admitting Physician LOYDA MEYER Attending Physician Hospital Admission Diagnosis No data in the System Social History Element Code Description Smoking Start Date End Date Description Status Code System Smoking Status [id number] Never smoker SNOMED-CT Problems Code Code System [...] break, dissolve, or cutpt unsure of dose) 92208 ferrous sulfate Oral orally 3 Active times per week (pt unsure of dosage) 5487 Hydrochlorothiazide Oral orally 2 Active times per day (pt unsure of dose) 59408 Lisinopril Oral orally every Active day (pt [...]
--- OUTSIDE RECORDS SUMMARY | 2017-10-03 08:48 | External Medical Summary | Summary of Care ---
[...] Provider: Hudson Lee M.D. On 03-Sep-2016 11:30 Appointment; Provider: Hudson Lee M.D. On 14-Jun-2016 15:45 Instructions Name Dates Details Instructions not documented Encounters Appointment; Hudson Lee M.D. On 14-Jun-2016 Encounter Diagnosis: Problem not documented 11:00
--- OUTSIDE RECORDS SUMMARY | 2017-10-03 08:48 | External Medical Summary | Continuity of Care Document ---
:1945 Author Organization [facility] Care Team Providers Name Role Phone ELISABETH SOTELO Admitting Physician ELISABETH SOTELO Attending Physician LOYDA MEYER Primary Care Physician Hospital Admission Diagnosis No data in the System Social History Element Code Description Smoking Start Date End Date Description Status Code System Smoking Status [id number] Never smoker SNOMED-CT Problems Code Code System Problem Name Start Date End Date Status [id number] SNOMED-CT Urinary tract 12/27/2016 Active infectious disease UTI SYMPTOMS 01/28/2016 Active LEFT EYE 06/11/2015 Active IRRITATION Medications RxNorm Medication Dose Route Instructions Indications Start End Status Date Date 22078 ferrous sulfate Oral orally 3 Active times per week (pt unsure of dosage) 5487 Hydrochlorothiazid Oral orally 2 Active e times per day (pt unsure of dose) 89837 Lisinopril Oral orally every Active day (pt unsure of dose) 0954893 rivaroxaban 20 MG 20 Oral orally every [...] Active allergy 15 Results Laboratory Results Order: Urinalysis With Microscopic ExamLegend: D=Delta, H=High, L=Low, HH=Critical High, LL=Critical Low, AA= Critical Alpha-Numeric, C=Corrected, A=Abnormal LOINC Test Result Flag Range Units Date 5778-6 Color Ur Brown 7 19:50 07142-3 Clarity Cloudy Ur 7 19:50 2966-0 Sp Gr >=1.030 1.005-1.030 24h Ur 7 19:50 2756-5 pH Ur 6.0 5.0-7.0 7 19:50 91163-1 Negative NEGATIVE Leukocyte esterase 7 19:50 Ur-aCnc 51622-6 Nitrite Negative NEGATIVE Ur Ql Strip.auto 7 19:50 90957-6 Prot >=300 * NEGATIVE Tiss-mCnt mg/dL 7 19:50 2349-9 Glucose Negative NEGATIVE Ur Ql 7 19:50 03938-3 MEK Negative NEGATIVE Ur-mCnc 7 19:50 1977-8 Bilirub Small * NEGATIVE Ur Ql 7 19:50 933-2 Bld Prod Large * NEGATIVE Typ BPU 7 19:50 43029-9 1.0 <=1.0 Urobilinogen Ur Ql 7 19:50 1WBC_UM 0-5 0-5 /HPF 7 19:50 5808-1 1RBC # Full Field * 0-5 /HPF UrnS HPF 7 19:50 5787-7 1Epi 0-2 0-2 /HPF Cells #/area UrnS 7 19:50 HPF 33712-8 Few /HPF 1Bacteria UrnS Ql 7 19:50 Micro 48078-9 1C trach N UrnS Ql Cult 7 19:50 Performing Lab Footnotes:[id number] [address] [place] [address] NELSON Vital Signs Vitals Value Date Body Temperature 99.9 F 12/27/2016 Respiratory Rate 18 12/27/2016 O2% BldC Oximetry 99 12/27/2016 BP Systolic 120 mmHg 12/27/2016 BP Diastolic 74 mmHg 12/27/2016 Height 70 in 12/27/2016 Weight Measured 235.78 lbs 12/27/2016 BSA (Body Surface Area) 2.41530 12/27/2016 BMI (Body Mass Index) 34.1 12/27/2016 Plan of Care No data in the system Procedures No data in the system Encounters No data in the system Immunizations No data in the system Functional Status No data in the system Hospital Discharge Instructions No data in the system
--- OUTSIDE RECORDS SUMMARY | 2017-10-03 08:48 | External Medical Summary | Continuity of Care Document ---
:1945 Author Organization [facility] Care Team Providers Name Role Phone LOYDA MEYER Admitting Physician LOYDA MEYER Attending Physician Hospital Admission Diagnosis No data in the System Social History Element Code Description Smoking Start Date End Date Description Status Code System Smoking Status 647000238 Never smoker SNOMED-CT Problems Code Code System [...] break, dissolve, or cutpt unsure of dose) 82168 ferrous sulfate Oral orally 3 Active times per week (pt unsure of dosage) 5487 Hydrochlorothiazide Oral orally 2 Active times per day (pt unsure of dose) 45117 Lisinopril Oral orally every Active day (pt unsure of dose) 6918 Metoprolol Oral orally once Active (pt unsure of dose) Allergies Code Code Allergy Type Reaction Severity Start End Status System Substance Date Date 7905 RXNorm Penicillins Drug Unknown 06/11/20 Active allergy 15 Results Radiology Results Order: MRBRNWW MR Brain W & W/O ContrastExam Completion Date:04/06/2016 09:30INDICATION: memory lossMR Brain W \ T\ W/O Contrast: Multiplanar and multisequence imaging wasperformed before and after IV gadolinium.Contrast: 10cc gadoliniumComparison: NoneFindings: There are multiple small foci of increased T2 signal in thesubcortical and periventricular white matter of both cerebral hemispheres.These are nonspecific but probably due to chronic ischemic microvasculardisease. There is no restricted diffusion. No evidence of an acute or recentinfarct. There is no gross intracranial hemorrhage. No masses are seen. Noevidence of ventricular obstruction. Both orbits are intact. Small retentioncysts in the left maxillary antrum. The paranasal sinuses and mastoid aircells are otherwise clear.Released By JOYA PUGH, MDDate: 04/06/2016 11:08 Vital Signs No data in the system Plan of Care No data in the system Procedures No data in the system Encounters No data in the system Immunizations No data in the system Functional Status No data in the system Hospital Discharge Instructions No data in the system
--- OUTSIDE RECORDS SUMMARY | 2017-10-03 08:48 | External Medical Summary | Continuity of Care Document ---
:1945 Author Organization [facility] Care Team Providers Name Role Phone LOYDA MEYER Admitting Physician LOYDA MEYER Attending Physician Hospital Admission Diagnosis Code Admission Diagnosis Date [id number] Low back pain Social History Element Code Description Smoking Start Date End Date Description Status Code System Smoking Status [id number] Never smoker SNOMED-CT Problems Code Code System [...] break, dissolve, or cutpt unsure of dose) 96708 ferrous sulfate Oral orally 3 Active times per week (pt unsure of dosage) 5487 Hydrochlorothiazide Oral orally 2 Active times per day (pt unsure of dose) 60198 Lisinopril Oral orally every Active day (pt [...] conus medullaris is unremarkable.Released By JOYA PUGH, BERTINate: 07/05/2016 13:48 Vital Signs No data in the system Plan of Care No data in the system Procedures No data in the system Encounters Date Code Diagnosis Status (ICD10) - M545 LOW BACK PAIN Active Immunizations No data in the system Functional Status No data in the system Hospital Discharge Instructions No data in the system
--- OUTSIDE RECORDS SUMMARY | 2017-10-03 08:48 | External Medical Summary | Continuity of Care Document ---
:1945 Author Organization [facility] Care Team Providers Name Role Phone ORESTES TOVAR Admitting Physician ORESTES TOVAR Attending Physician Hospital Admission Diagnosis Code Admission Diagnosis Date ASYMPTOMATIC MICROSCOPIC HEMATURIA Social History Element Code Description Smoking Start Date End Date Description Status Code System Smoking Status 611481175 Never smoker SNOMED-CT Problems Code Code System [...] break, dissolve, or cutpt unsure of dose) 20603 ferrous sulfate Oral orally 3 Active times per week (pt unsure of dosage) 5487 Hydrochlorothiazide Oral orally 2 Active times per day (pt unsure of dose) 47891 Lisinopril Oral orally every Active day (pt unsure of dose) 6918 Metoprolol Oral orally once Active (pt unsure of dose) Allergies Code Code Allergy Type Reaction Severity Start End Status System Substance Date Date 7986 RXNorm Penicillins Drug Unknown 06/11/20 Active allergy 15 Results Radiology Results Order: ABDKUB Abdomen/KUB 1 viewExam Completion Date:09/29/2016 12:46INDICATION: Asymptomatic microscopic hematuriaABDOMEN 1-VIEW SUPINE (AP): COMPARISON: NoneFINDINGS:2.5 x 1.5 cm calcification in the pelvis just to the right ofmidline consistent with a bladder stone. There is a tiny faint calcificationprojected over the lower midportion of the right kidney laterally which isprobably a stone. The left kidney is mostly obscured by bowel. Pelvicphleboliths.Released By JOYA PUGH, MDDate: 09/29/2016 13:01 Vital Signs No data in the system Plan of Care No data in the system Procedures No data in the system Encounters Date Code Diagnosis Status (ICD10) - R3121 ASYMPTOMATIC MICROSCOPIC Active HEMATURIA Immunizations No data in the system Functional Status No data in the system Hospital Discharge Instructions No data in the system
--- OUTSIDE RECORDS SUMMARY | 2017-10-03 08:48 | External Medical Summary | Summary of Care ---
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 Start 14-Jun-2016 Active Galantamine Hydrobromide 8 MG Oral Tablet Take 1 tablet daily Quantity: 90 Refills: 0 Hudson Lee M.D. Start 03-Sep-2016 Active Xarelto 20 MG Oral Tablet TAKE ! TABLET DAILY Refills: 0 Rosa Avendaño, Hudson Ferrell Start 22-Nov-2016 Active Mens 50+ Multi Vitamin/Min Oral Tablet TAKE 1 TABLET DAILY. Refills: 0 Rosa Avendaño, Hudson Ferrell Start 22-Nov-2016 Active Saw [place] 450 MG Oral Capsule TAKE DIRECTED. Refills: 0 Rosa Avendaño, Hudson Ferrell Start 22-Nov-2016 Active Cranberry 500 MG Oral Capsule Refills: 0 Rosa Avendaño, Hudson Ferrell Start 22-Nov-2016 Active Allergies and Adverse Reactions Name Dates [...] smoker Vital Signs Date Test Result Details 22-Nov-2016 09:06 BP Systolic 128 mm[Hg] Status: Comments: Location: LUE; Position: Sitting BP Diastolic 82 mm[Hg] Status: Comments: Location: LUE; Position: Sitting Heart Rate 100 /min Status: Comments: Location: ; Weight 236.0 lb Status: Physical Findings 94 Status: Comments: O2 Saturation Body Mass Index Calculated 33.86 kg/m2 Status: Body Surface Area Calculated 2.24 m2 Status: Results Date Description Value Details Results not documented Plan of Care Name Dates Details Planned Observations Planned Goals not documented Instructions Name Dates Details Instructions not documented Encounters Appointment; Hudson Lee M.D. On 03-Sep-2016 Encounter Diagnosis: Problem not documented 11:30 Appointment; Hudson Lee M.D. On 14-Jun-2016 Encounter Diagnosis: Problem not documented 11:00
--- OUTSIDE RECORDS SUMMARY | 2017-10-03 08:48 | External Medical Summary | Continuity of Care Document ---
:1945 Author Organization [facility] Care Team Providers Name Role Phone LOYDA MEYER Admitting Physician LOYDA MEYER Attending Physician Hospital Admission Diagnosis Code Admission Diagnosis Date [id number] Chronic atrial fibrillation Social History Element Code Description Smoking Start Date End Date Description Status Code System Smoking Status 794192401 Never smoker SNOMED-CT Problems Code Code System Problem Name Start Date End Date Status 52809940 SNOMED-CT Urinary tract 12/27/2016 Active infectious disease UTI SYMPTOMS 01/28/2016 Active LEFT EYE 06/11/2015 Active IRRITATION Medications RxNorm Medication Dose Route Instructions Indications Start End Status Date Date 18468 ferrous sulfate Oral orally 3 Active times per week (pt unsure of dosage) 5487 Hydrochlorothiazid Oral orally 2 Active e times per day (pt unsure of dose) 81742 Lisinopril Oral orally every Active day (pt unsure of dose) 7846698 rivaroxaban 20 MG 20 Oral orally every [...] - I482 CHRONIC ATRIAL FIBRILLATION Active Immunizations No data in the system Functional Status No data in the system Hospital Discharge Instructions No data in the system
--- OUTSIDE RECORDS SUMMARY | 2017-10-03 08:48 | External Medical Summary | Continuity of Care Document ---
:[address] [facility] Care Team Providers Name Role Phone LOYDA MEYER Admitting Physician LOYDA MEYER Attending Physician Hospital Admission Diagnosis Code Admission Diagnosis Date [id number] Hip pain Social History Element Code Description Smoking Start Date End Date Description Status Code System Smoking Status [id number] Unknown if ever SNOMED-CT smoked Problems Code [...] break, dissolve, or cutpt unsure of dose) 43139 ferrous sulfate Oral orally 3 Active times per week (pt unsure of dosage) 5487 Hydrochlorothiazide Oral orally 2 Active times per day (pt unsure of dose) 73557 Lisinopril Oral orally every Active day (pt unsure of dose) 6918 Metoprolol Oral orally once Active (pt unsure of dose) Allergies Code Code Allergy Type Reaction Severity Start End Status System Substance Date Date 7986 RXNorm Penicillins Drug Unknown 06/11/20 Active allergy 15 Results Radiology Results Order: HPRT2 Hip w/Pelvis RT 2 or 3 viewsExam Completion Date:06/15/2016 13:46INDICATION: RT hip pain-CKFPHip w/ Pelvis RT 2 or 3 views:The hips are normally aligned with preservation of the joint space. Nofractures are seen. The obturator rings are intact. The SI joints are openandcorticated. There is facet arthritis in the lower lumbar spine.Released By SUKHDEV BROWN, MDDate: 06/15/2016 14:01 Vital Signs No data in the system Plan of Care No data in the system Procedures No data in the system Encounters Date Code Diagnosis Status (ICD10) - T26260 PAIN IN RIGHT HIP Active Immunizations No data in the system Functional Status No data in the system Hospital Discharge Instructions No data in the system
--- OUTSIDE RECORDS SUMMARY | 2017-10-03 08:48 | External Medical Summary | Summary of Care ---
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 Start 14-Jun-2016 Active Xarelto 20 MG Oral Tablet TAKE ! TABLET DAILY Refills: 0 Hudson Lee M.D. Start 22-Nov-2016 Active Mens 50+ Multi Vitamin/Min Oral Tablet TAKE 1 TABLET DAILY. Refills: 0 Rosa AvendañoHudson Start 22-Nov-2016 Active Saw [place] 450 MG Oral Capsule TAKE DIRECTED. Refills: 0 Rosa Avendaño Hudson Ferrell Start 22-Nov-2016 Active Cranberry 500 MG Oral Capsule Refills: 0 Rosa Avendaño, Hudson Ferrell Start 22-Nov-2016 Active Galantamine Hydrobromide ER 16 MG Oral Capsule Extended Release 24 Hour TAKE 1 CAPSULE Daily Quantity: 90 Refills: 3 Rosa Hankins., Hudson Ferrell Start 22-Nov-2016 Active Allergies and [...] Encounters Appointment; Provider: Hudson Lee M.D. On 09:45 Interventions Provided Medication ChangesGalantamine Hydrobromide 8 MG Oral Tablet - StopGalantamine Hydrobromide ER 16 MG Oral Capsule Extended Release 24 Hour - Start Instructions Name Dates Details Instructions not documented Encounters Appointment; Hudson Lee M.D. On 03-Sep-2016 Encounter Diagnosis: Problem not documented 11:30 Appointment; Hudson Lee M.D. On 14-Jun-2016 Encounter Diagnosis: Problem not documented 11:00
--- OUTSIDE RECORDS SUMMARY | 2017-10-03 08:48 | External Medical Summary | Continuity of Care Document ---
:1945 Author Organization [facility] Care Team Providers Name Role Phone JACKY MCCRARY Admitting Physician Unavailable JACKY MCCRARY Attending Physician Unavailable Hospital Admission Diagnosis Code Admission Diagnosis Date [id number] Intervertebral disc disorder of lumbar region with myelopathy Social History Element Code Description Smoking Start Date End Date Description Status Code System Smoking Status [id number] Never smoker SNOMED-CT Problems Code Code System [...] break, dissolve, or cutpt unsure of dose) 30872 ferrous sulfate Oral orally 3 Active times per week (pt unsure of dosage) 5487 Hydrochlorothiazide Oral orally 2 Active times per day (pt unsure of dose) 04059 Lisinopril Oral orally every Active day (pt unsure of dose) 6918 Metoprolol Oral orally once Active (pt unsure of dose) Allergies Code Code Allergy Type Reaction Severity Start End Status System Substance Date Date 7986 RXNorm Penicillins Drug Unknown 06/11/20 Active allergy 15 Results No data in the system Vital Signs Vitals Value Date Respiratory Rate 16 07/27/2016 O2% BldC Oximetry 95 07/27/2016 BP Systolic 100 mmHg 07/27/2016 BP Diastolic 66 mmHg 07/27/2016 Plan of Care No data in the system Procedures No data in the system Encounters Date Code Diagnosis Status (ICD10) - 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
--- OUTSIDE RECORDS SUMMARY | 2017-10-03 08:48 | External Medical Summary | Continuity of Care Document ---
:1944 Author Organization [facility] Care Team Providers Name Role Phone LOYDA MEYER Admitting Physician LOYDA MEYER Attending Physician Hospital Admission Diagnosis Code Admission Diagnosis Date [id number] Chronic atrial fibrillation Social History Element Code Description Smoking Start Date End Date Description Status Code System Smoking Status [id number] Never smoker SNOMED-CT Problems Code Code System Problem Name Start Date End Date Status 01584431 SNOMED-CT Urinary tract 12/27/2016 Active infectious disease UTI SYMPTOMS 01/28/2016 Active LEFT EYE 06/11/2015 Active IRRITATION Medications RxNorm Medication Dose Route Instructions Indications Start End Status Date Date 45597 ferrous sulfate Oral orally 3 Active times per week (pt unsure of dosage) 5487 Hydrochlorothiazid Oral orally 2 Active e times per day (pt unsure of dose) 70611 Lisinopril Oral orally every Active day (pt unsure of dose) 0331166 rivaroxaban 20 MG 20 Oral orally every [...]
--- OUTSIDE RECORDS SUMMARY | 2017-10-03 08:48 | External Medical Summary | Continuity of Care Document ---
:1944 Author Organization [facility] Care Team Providers Name Role Phone ORESTES HERNANDEZ Admitting Physician Unavailable ORESTES HERNANDEZ Attending Physician Unavailable Hospital Admission Diagnosis No data in the System Social History Element Code Description Smoking Start Date End Date Description Status Code System Smoking Status [id number] Never smoker SNOMED-CT Problems Code Code System [...] break, dissolve, or cutpt unsure of dose) 49795 ferrous sulfate Oral orally 3 Active times per week (pt unsure of dosage) 5487 Hydrochlorothiazide Oral orally 2 Active times per day (pt unsure of dose) 57741 Lisinopril Oral orally every Active day (pt [...] LOINC Test Result Flag Range Units Date 90-2 5.3 4.5-11.0 10^3/mm3 01/28/2016 1WBC # Bld 21:11 Auto 56619-7 4.12 L 4.50-5.90 10^6/mm3 01/28/2016 1Retics # 21:11 Auto 38975-2 13.3 L 13.5-17.5 g/dl 01/28/2016 1Hgb 21:11 [...] 10^3/mm3 01/28/2016 1Platelet # 21:11 Bld Auto 02532-1 8.9 7.4-10.4 01/28/2016 1PMV Bld 21:11 96566-4 64.7 40.0-74.0 % 01/28/2016 1Neutrophils 21:11 # CSF 19.7 14.0-46.0 % 01/28/2016 1LYMPH% 21:11 53230-3 12.6 4.0-13.0 % 01/28/2016 1CD43 Ag Tiss 21:11 Ql ImStn 711-2 2.4 <=4.0 % 01/28/2016 1Eosinophil # 21:11 Bld Auto 704-7 0.6 <=3.0 % 01/28/2016 1Basophils # 21:11 Bld Auto 751-8 3.5 1.8-7.8 01/28/2016 1Neutrophils 21:11 # Bld Auto 64217-9 1.1 0.7-4.5 01/28/2016 1Lymphocytes 21:11 # Bld 85155-9 0.7 0.1-1.0 01/28/2016 1CD43 Ag Tiss 21:11 Ql ImStn 711-2 0.13 <=4.00 01/28/2016 1Eosinophil # 21:11 Bld Auto 704-7 0.03 <=0.20 01/28/2016 1Basophils # 21:11 Bld Auto N 01/28/2016 2MANDIFF 21:11 81731-5 N 01/28/2016 2RBC Bld Auto 21:11 Performing Lab Footnotes:[facility] - [id number] - [address] [address] - JULIA DRUMMOND2[facility] - [id number] - [address] - Factory Clerk:, Julia Drummond MD - JULIA DRUMMOND Order: Comprehensive Metabolic PanelLegend: D=Delta, H=High, L=Low, HH= Critical High, LL=Critical Low, AA=Critical Alpha-Numeric, C=Corrected, A= Abnormal LOINC Test Result Flag Range Units Date 2345-7 134 H 70-105 mg/dl 01/28/2016 1Glucose 21:11 SerPl-mCnc 3094-0 15 7-25 mg/dl 01/28/2016 1BUN 21:11 SerPl-mCnc 2160-0 1.2 0.6-1.3 mg/dl 01/28/2016 1Creat 21:11 SerPl-mCnc 56444-2 13 13-39 01/28/2016 1Creat/Urea 21:11 nit SerPl 2951-2 139 135-145 mmol/L 01/28/2016 1Sodium 21:11 SerPl-sCnc 63140-9 3.8 3.5-5.1 mmol/L 01/28/2016 1Potassium 21:11 SerPl-mCnc 2075-0 108 H 98-107 mmol/l 01/28/2016 1Chloride 21:11 SerPl-sCnc 2028-9 26 21-31 mmol/l 01/28/2016 1CO2 21:11 SerPl-sCnc 06805-0 9 9-16 mmol/L 01/28/2016 1Anion Gap 21:11 SerPl-sCnc 2692-2 291 277-298 mOsm/kg 01/28/2016 1Osmolality 21:11 SerPl 78524-8 9.0 8.2-10.0 mg/dl 01/28/2016 1Calcium 21:11 SerPl-mCnc [...] 60-116 GFRunits 01/28/2016 1GFR 21:11 Performing Lab Footnotes:1[facility] [id number] - [address] [place], [place] [address] - JULIA DRUMMOND Order: Protime With INRLegend: D=Delta, H=High, L=Low, HH=Critical High, LL= Critical Low, AA=Critical Alpha-Numeric, C=Corrected, A=Abnormal LOINC Test Result Flag Range Units Date 1PT 11.0 9.1-11.6 Seconds 01/28/2016 21:11 21232-9 1INR p 1.07 0.90-1.15 01/28/2016 heparin 21:11 adsorption PPP Performing Lab Footnotes:[address] [place] [address] Laboratory - [id number] - [address] [place] [id number] - JULIA DRUMMOND Order: Urinalysis With Microscopic ExamLegend: D=Delta, H=High, L=Low, HH= Critical High, LL=Critical Low, AA=Critical Alpha-Numeric, C=Corrected, A= Abnormal LOINC Test Result Flag Range Units Date 5778-6 Color Ur Red 6 20:40 92567-1 Clarity Cloudy Ur 6 20:40 2966-0 Sp Gr >=1.030 1.005-1.030 24h Ur 6 20:40 2756-5 pH Ur 5.5 5.0-7.0 6 20:40 78822-4 Negative NEGATIVE Leukocyte esterase 6 20:40 Ur-aCnc 08926-8 Nitrite Negative NEGATIVE Ur Ql Strip.auto 6 20:40 41186-3 Prot 100 mg/dL * NEGATIVE Tiss-mCnt 6 20:40 2349-9 Glucose Negative NEGATIVE Ur Ql 6 20:40 24824-1 MEK 5 mg/dL * NEGATIVE Ur-mCnc 6 20:40 1977-8 Bilirub Small * NEGATIVE Ur Ql 6 20:40 933-2 Bld Prod Large * NEGATIVE Typ BPU 6 20:40 94864-2 1.0 <=1.0 Urobilinogen Ur Ql 6 20:40 1WBC_UM 2-5 * 0-5 /HPF 6 20:40 5808-1 1RBC # Packed Field * 0-5 /HPF UrnS HPF 6 20:40 5787-7 1Epi 0-2 0-2 /HPF Cells #/area UrnS 6 20:40 HPF 37436-6 Few /HPF 1Bacteria UrnS Ql 6 20:40 Micro 16274-1 1Mucous none * NONE PRESENT /HPF Threads #/area 6 20:40 UrnS HPF 9842-6 1Casts 0 /lpf #/area UrnS LPF 6 20:40 10803-4 0 /HPF 1Crystals #/area 6 20:40 UrnS HPF 10269-7 1C trach N UrnS Ql Cult 6 20:40 Performing Lab Footnotes:1[facility] - [id number] - [address] [place], [place] [address]V[place] - JULIA BHANU Vital Signs Vitals Value Date Body Temperature [...]
--- OUTSIDE RECORDS SUMMARY | 2017-10-03 08:48 | External Medical Summary | Continuity of Care Document ---
:1944 Author Organization [facility] Care Team Providers Name Role Phone EAGLE SAWANT Admitting Physician EAGLE SAWANT Attending Physician LOYDA MEYER Primary Care Physician Hospital Admission Diagnosis No data in the System Social History Element Code Description Smoking Start Date End Date Description Status Code System Smoking Status [id number] Never smoker SNOMED-CT Problems Code Code System Problem Name Start Date End Date Status PAIN UNDER R 05/04/2017 Active AXILLA 70811859 SNOMED-CT Urinary tract 12/27/2016 Active infectious disease UTI SYMPTOMS 01/28/2016 Active LEFT EYE 06/11/2015 Active IRRITATION Medications RxNorm Medication Dose Route Instructions Indications Start End Status Date Date 9275754 dabigatran 150 Oral orally 2 times Active etexilate 150 MG milligram per day Oral Capsule (administer at approximately the same time(s) each day;) 3443 Diltiazem 180 Oral orally every Active milligram morning 128787 Fenofibrate 160 160 Oral orally every Active MG Oral Tablet milligram day 435298 Hydrochlorothiazi 0.5 Oral orally every Active de 25 MG / capsule morning Triamterene 37.5 (administer MG Oral Capsule after a meal;) 657915 Lisinopril 20 MG 20 Oral orally 2 times Active Oral Tablet milligram per day (pt unsure of dose) 448278 rivastigmine 1.5 Oral orally 2 times Active milligram per day 1191 Aspirin 81 Oral orally 3 times No milligram per week Longer Active 8703 Fenofibrate Oral orally every No day (swallow Longer whole; do not Active crush, chew, break, dissolve, or cutpt unsure of dose) 92733 ferrous sulfate Oral orally 3 times No per week (pt Longer unsure of Active dosage) 5487 Hydrochlorothiazi Oral orally 2 times No de per day (pt Longer unsure of Active dose) 6918 Metoprolol Oral orally once No (pt unsure of Longer dose) Active 2623308 rivaroxaban 20 MG 20 Oral orally every No Oral Tablet milligram day [...]
--- OUTSIDE RECORDS SUMMARY | 2017-10-03 08:49 | External Medical Summary | Continuity of Care Document ---
:1944 Author Organization [facility] Care Team Providers Name Role Phone JOSHUA TARIQ Admitting Physician Unavailable JOSHUA TARIQ Attending Physician Unavailable LOYDA MEYER Primary Care Physician Hospital Admission Diagnosis Code Admission Diagnosis Date [id number] Pain in thoracic spine Social History Element Code Description Smoking Start Date End Date Description Status Code System Smoking Status [id number] Never smoker SNOMED-CT Problems Code Code System Problem Name Start Date End Date Status PAIN UNDER R 05/04/2017 Active AXILLA 68878491 SNOMED-CT Urinary tract 12/27/2016 Active infectious disease UTI SYMPTOMS 01/28/2016 Active LEFT EYE 06/11/2015 Active IRRITATION Medications RxNorm Medication Dose Route Instructions Indications Start End Status Date Date 7882565 dabigatran 150 Oral orally 2 times Active etexilate 150 MG milligram per day Oral Capsule (administer at approximately the same time(s) each day;) 3443 Diltiazem 180 Oral orally every Active milligram morning 212365 Fenofibrate 160 160 Oral orally every Active MG Oral Tablet milligram day 386938 Hydrochlorothiazi 0.5 Oral orally every Active de 25 MG / capsule morning Triamterene 37.5 (administer MG Oral Capsule after a meal;) 942586 Lisinopril 20 MG 20 Oral orally 2 times Active Oral Tablet milligram per day (pt unsure of dose) 939850 rivastigmine 1.5 Oral orally 2 times Active milligram per day 1191 Aspirin 81 Oral orally 3 times No milligram per week Longer Active 8703 Fenofibrate Oral orally every No day (swallow Longer whole; do not Active crush, chew, break, dissolve, or cutpt unsure of dose) 16444 ferrous sulfate Oral orally 3 times No per week (pt Longer unsure of Active dosage) 5487 Hydrochlorothiazi Oral orally 2 times No de per day (pt Longer unsure of Active dose) 6918 Metoprolol Oral orally once No (pt unsure of Longer dose) Active 6241188 rivaroxaban 20 MG 20 Oral orally every No Oral Tablet milligram day Longer (administer Active with evening meal;) Allergies Code Code Allergy Type Reaction Severity Start End Status System Substance Date Date 7986 RXNorm Penicillins Drug Unknown 06/11/20 Active allergy 15 Results No data in the system Vital Signs Vitals Value Date Body Temperature 36.5 F 05/04/2017 Respiratory Rate 18 05/04/2017 O2% BldC Oximetry 95 05/04/2017 BP Systolic 155 mmHg 05/04/2017 BP Diastolic 86 mmHg 05/04/2017 Height 70 in 05/04/2017 Weight Measured 245 lbs 05/04/2017 BSA (Body Surface Area) 2.15821 05/04/2017 BMI (Body Mass Index) 35.4 05/04/2017 Plan of Care No data in the system Procedures Code Code System Procedure Name Target Site Date of Procedure COLON Unknown RESECTION TURP Unknown Encounters Date Code Diagnosis Status (ICD10) - Z33629E STRN MSC TENDON BACK WALL THOR Active INIT Immunizations Vaccine Code Code System Vaccine Name Date Status 141 CVX Influenza, 04/26/2017 Completed seasonal, injectable Functional Status No data in the system Hospital Discharge Instructions No data in the system
--- OUTSIDE RECORDS SUMMARY | 2017-10-03 08:49 | External Medical Summary | Continuity of Care Document ---
:1944 Author Organization [facility] Care Team Providers Name Role Phone ELISABETH SOTELO Admitting Physician ELISABETH SOTELO Attending Physician LOYDA MEYER Primary Care Physician Hospital Admission Diagnosis Code Admission Diagnosis Date [id number] Dysuria Social History Element Code Description Smoking Start Date End Date Description Status Code System Smoking Status 675530619 Never smoker SNOMED-CT Problems Code Code System Problem Name Start Date End Date Status 02501988 SNOMED-CT Urinary tract 12/27/2016 Active infectious disease UTI SYMPTOMS 01/28/2016 Active LEFT EYE 06/11/2015 Active IRRITATION Medications RxNorm Medication Dose Route Instructions Indications Start End Status Date Date 13809 ferrous sulfate Oral orally 3 Active times per week (pt unsure of dosage) 5487 Hydrochlorothiazid Oral orally 2 Active e times per day (pt unsure of dose) 23507 Lisinopril Oral orally every Active day (pt unsure of dose) 1777925 rivaroxaban 20 MG 20 Oral orally every [...] Date 5778-6 Color Ur Brown 7 19:50 22578-1 Clarity Cloudy Ur 7 19:50 2966-0 Sp Gr >=1.030 1.005-1.030 24h Ur 7 19:50 2756-5 pH Ur 6.0 5.0-7.0 7 19:50 46183-9 Negative NEGATIVE Leukocyte esterase 7 19:50 Ur-aCnc 01823-9 Nitrite Negative NEGATIVE Ur Ql Strip.auto 7 19:50 79995-6 Prot >=300 * NEGATIVE Tiss-mCnt mg/dL 7 19:50 2349-9 Glucose Negative NEGATIVE Ur Ql 7 19:50 09954-9 MEK Negative NEGATIVE Ur-mCnc 7 19:50 1977-8 Bilirub Small * NEGATIVE Ur Ql 7 19:50 933-2 Bld Prod Large * NEGATIVE Typ BPU 7 19:50 57584-6 1.0 <=1.0 Urobilinogen Ur Ql 7 19:50 1WBC_UM 0-5 0-5 /HPF 7 19:50 5808-1 1RBC # Full Field * 0-5 /HPF UrnS HPF 7 19:50 5787-7 1Epi 0-2 0-2 /HPF Cells #/area UrnS 7 19:50 HPF 23268-4 Few /HPF 1Bacteria UrnS Ql 7 19:50 Micro 90172-9 1C trach N UrnS Ql Cult 7 19:50 Performing Lab Footnotes:[id number] [address] [place] [address] [place] Vital Signs Vitals Value Date Body Temperature 99.9 F 12/27/2016 Respiratory Rate 18 12/27/2016 O2% BldC Oximetry 99 12/27/2016 BP Systolic 120 mmHg 12/27/2016 BP Diastolic 74 mmHg 12/27/2016 Height 70 in 12/27/2016 Weight Measured 235.78 lbs 12/27/2016 BSA (Body Surface Area) 2.05468 12/27/2016 BMI (Body Mass Index) 34.1 12/27/2016 Plan of Care No data in the system Procedures No data in the system Encounters Date Code Diagnosis Status (ICD10) - R339 RETENTION OF URINE UNSPECIFIED Active Immunizations No data in the system Functional Status No data in the system Hospital Discharge Instructions No data in the system
--- OUTSIDE RECORDS SUMMARY | 2017-10-03 08:49 | External Medical Summary | Continuity of Care Document ---
:1944 Author Organization [facility] Care Team Providers Name Role Phone ORESTES TOVAR Admitting Physician ORESTES TOVAR Attending Physician Hospital Admission Diagnosis No data in the System Social History Element Code Description Smoking Start Date End Date Description Status Code System Smoking Status 466164759 Never smoker SNOMED-CT Problems Code Code System [...] break, dissolve, or cutpt unsure of dose) 48754 ferrous sulfate Oral orally 3 Active times per week (pt unsure of dosage) 5487 Hydrochlorothiazide Oral orally 2 Active times per day (pt unsure of dose) 11691 Lisinopril Oral orally every Active day (pt unsure of dose) 6918 Metoprolol Oral orally once Active (pt unsure of dose) Allergies Code Code Allergy Type Reaction Severity Start End Status System Substance Date Date 7951 RXNorm Penicillins Drug Unknown 06/11/20 Active allergy [...]
--- OUTSIDE RECORDS SUMMARY | 2017-10-03 08:49 | External Medical Summary | Continuity of Care Document ---
:1944 Author Organization [facility] Care Team Providers Name Role Phone JOSE DE JESUS MA Admitting Physician JOSE DE JESUS MA Attending Physician JHONATHAN CRUZ Consulting Physician Hospital Admission Diagnosis Code Admission Diagnosis Date ENCOUNTER FOR PREPROCEDURAL CARDIOVASCULAR EXAMINATION Social History Element Code Description Smoking Start Date End Date Description Status Code System Smoking Status 649125733 Never smoker SNOMED-CT Problems Code Code System Problem Name Start Date End Date Status LEFT EYE 06/11/2015 Active IRRITATION Medications SNOMED CT Description 568434843 Drug Treatment Unknown Allergies Code Code Allergy Type Reaction Severity Start End Status System Substance Date Date 7962 RXNorm Penicillins Drug Unknown 06/11/20 Active allergy 15 Results Laboratory Results Order: CBC With Automated DifferentialLegend: D=Delta, H=High, L=Low, HH=Critical High, LL=Critical Low, AA=Critical Alpha-Numeric, C=Corrected, A=Abnormal LOINC Test Result Flag Range Units Date 90-2 5.5 4.5-11.0 10^3/mm3 09/16/2015 1WBC # Bld 10:20 Auto 57206-8 4.96 4.50-5.90 10^6/mm3 09/16/2015 1Retics # 10:20 Auto 80414-8 15.2 13.5-17.5 g/dl 09/16/2015 1Hgb 10:20 BldV-mCnc 4544-3 46.1 41.0-53.0 % 09/16/2015 1Hct VFr Bld 10:20 Auto 787-2 92.9 82.0-100.0 10^6/mm3 09/16/2015 1MCV RBC Auto 10:20 785-6 30.6 27.0-34.0 pg 09/16/2015 1MCH RBC Qn 10:20 Auto 786-4 33.0 32.0-36.0 g/dl 09/16/2015 1MCHC RBC 10:20 Auto-mCnc 788-0 15.5 H 11.7-15.0 % 09/16/2015 1RDW RBC 10:20 Auto-Rto 777-3 395 150-450 10^3/mm3 09/16/2015 1Platelet # 10:20 Bld Auto 88431-2 9.1 7.4-10.4 09/16/2015 1PMV Bld 10:20 46245-1 62.2 40.0-74.0 % 09/16/2015 1Neutrophils 10:20 # CSF 20.9 14.0-46.0 % 09/16/2015 1LYMPH% 10:20 98503-4 12.2 4.0-13.0 % 09/16/2015 1CD43 Ag Tiss 10:20 Ql ImStn 711-2 3.6 <=4.0 % 09/16/2015 1Eosinophil # 10:20 Bld Auto 704-7 1.1 <=3.0 % 09/16/2015 1Basophils # 10:20 Bld Auto 751-8 3.4 1.8-7.8 09/16/2015 1Neutrophils 10:20 # Bld Auto 76057-7 1.2 0.7-4.5 09/16/2015 1Lymphocytes 10:20 # Bld 98290-0 0.7 0.1-1.0 09/16/2015 1CD43 Ag Tiss 10:20 Ql ImStn 711-2 0.20 <=4.00 09/16/2015 1Eosinophil # 10:20 Bld Auto 704-7 0.06 <=0.20 09/16/2015 1Basophils # 10:20 Bld Auto N 09/16/2015 2MANDIFF 10:20 77582-4 N 09/16/2015 2RBC Bld Auto 10:20 Performing Lab Footnotes:1[facility] - [id number] - [address] [place], [place] [address] - JULIA DRUMMOND2[facility] - [id number] - [address] [place] [address] [facility] Resource Specialist:Julia MD - JULIA DRUMMOND Vital Signs No data in the system Plan of Care No data in the system Procedures No data in the system Encounters Date Code Diagnosis Status (ICD10) - Z77525 ENCOUNTER PREPROCEDURAL CV EXAM Active Immunizations No data in the system Functional Status No data in the system Hospital Discharge Instructions No data in the system
--- OUTSIDE RECORDS SUMMARY | 2017-10-03 08:49 | External Medical Summary | Continuity of Care Document ---
:[address] [facility] Care Team Providers Name Role Phone CHANTAL STOREY Admitting Physician Unavailable CHANTAL STOREY Attending Physician Unavailable Hospital Admission Diagnosis Code Admission Diagnosis Date [id number] Diarrhea Social History Element Code Description Smoking Start Date End Date Description Status Code System Smoking Status [id number] Never smoker SNOMED-CT Problems Code Code System [...] break, dissolve, or cutpt unsure of dose) 44547 ferrous sulfate Oral orally 3 Active times per week (pt unsure of dosage) 5487 Hydrochlorothiazide Oral orally 2 Active times per day (pt unsure of dose) 86668 Lisinopril Oral orally every Active day (pt unsure of dose) 6918 Metoprolol Oral orally once Active (pt unsure of dose) Allergies Code Code Allergy Type Reaction Severity Start End Status System Substance Date Date 79 RXNorm Penicillins Drug Unknown 06/11/20 Active allergy 15 Results Laboratory Results Order: GI PanelLegend: D=Delta, H=High, L= Low, HH=Critical High, LL=Critical Low, AA=Critical Alpha-Numeric, C=Corrected, A=Abnormal LOINC Test Result Flag Range Units Date GI Panel Not Detected NOT DETECTED 02/22/2016 12:00 1Campylobacter 1C. diff Not Detected 02/22/2016 12:00 A/B Not Detected 02/22/2016 12:00 1Plesiomonas shig 1Salmonella Not Detected 02/22/2016 12:00 1Vibrio Not Detected 02/22/2016 12:00 1Vibrio Not Detected 02/22/2016 12:00 cholerae 1Yersinia Not Detected 02/22/2016 12:00 entero 1EAEC Not Detected 02/22/2016 12:00 1EPEC Not Detected 02/22/2016 12:00 1ETEC Not Detected 02/22/2016 12:00 1STEC Not Detected 02/22/2016 12:00 1E. coli Not Detected 02/22/2016 12:00 O157 Not Detected 02/22/2016 12:00 1Shigella/EIEC Not Detected 02/22/2016 12:00 1Cryptosporidum 1Cyclospora Not Detected 02/22/2016 12:00 cayet. 1Entamoeba Not Detected 02/22/2016 12:00 histo. 1Giardia Not Detected 02/22/2016 12:00 lamblia 1Adenovirus Not Detected 02/22/2016 12:00 F 40/41 1Astrovirus Not Detected 02/22/2016 12:00 1Norovirus Not Detected 02/22/2016 12:00 GI/GII 1Rotavirus Not Detected 02/22/2016 12:00 A 1Sapovirus Not Detected 02/22/2016 12:00 GI Panel Abbreviations Plesiomonas shigelloidesClostridium Difficile toxin A/B Yersinia enterocolitica Enteroaggregative E.coli(EAEC)Enteropathogenic E.coli (EPEC) Enterotoxigenic E. coli (ETEC)Shiga toxin 1/2 (STEC) Shigella/Enteroinvasive E. coli (EIEC) Cyclospora cayetariensis Entamoeba histolytica The performance of this test has only been validated with human stool collected in Carol Vinny transport medium, according to the media manufacturers' instructions. It has not been validated for use with other stool transport media, raw stool, rectal swabs, endoscopy stool aspirates, or vomitis. * BioFire limitations of procedure instructions* Performing Lab Footnotes:1[facility] - [id number] - [address] [place], [place] [address] - JULIA MARIAMA Order: CBC With Automated DifferentialLegend: D=Delta, H=High, L=Low, HH= Critical High, LL=Critical Low, AA=Critical Alpha-Numeric, C=Corrected, A= Abnormal LOINC Test Result Flag Range Units Date 6690-2 7.5 4.5-11.0 10^3/mm3 02/22/2016 1WBC # Bld 10:28 Auto 49926-9 4.30 L 4.50-5.90 10^6/mm3 02/22/2016 1Retics # 10:28 Auto 32742-0 14.0 13.5-17.5 g/dl 02/22/2016 1Hgb 10:28 BldV-mCnc 4544-3 41.7 41.0-53.0 % 02/22/2016 1Hct VFr Bld 10:28 Auto 787-2 97.0 82.0-100.0 10^6/mm3 02/22/2016 1MCV RBC Auto 10:28 785-6 32.6 27.0-34.0 pg 02/22/2016 1MCH RBC Qn 10:28 Auto 786-4 33.6 32.0-36.0 g/dl 02/22/2016 1MCHC RBC 10:28 Auto-mCnc 788-0 14.2 11.7-15.0 % 02/22/2016 1RDW RBC 10:28 Auto-Rto 777-3 246 150-450 10^3/mm3 02/22/2016 1Platelet # 10:28 Bld Auto 99352-5 9.2 7.4-10.4 02/22/2016 1PMV Bld 10:28 15562-0 95.8 H 40.0-74.0 % 02/22/2016 1Neutrophils 10:28 # CSF 1.7 L 14.0-46.0 % 02/22/2016 1LYMPH% 10:28 24984-0 2.1 L 4.0-13.0 % 02/22/2016 1CD43 Ag Tiss 10:28 Ql ImStn 711-2 0.1 <=4.0 % 02/22/2016 1Eosinophil # 10:28 Bld Auto 704-7 0.3 <=3.0 % 02/22/2016 1Basophils # 10:28 Bld Auto 751-8 7.1 1.8-7.8 02/22/2016 1Neutrophils 10:28 # Bld Auto 67634-3 0.1 L 0.7-4.5 02/22/2016 1Lymphocytes 10:28 # Bld 62812-6 0.2 0.1-1.0 02/22/2016 1CD43 Ag Tiss 10:28 Ql ImStn 711-2 0.01 <=4.00 02/22/2016 1Eosinophil # 10:28 Bld Auto 704-7 0.02 <=0.20 02/22/2016 1Basophils # 10:28 Bld Auto N 02/22/2016 2MANDIFF 10:28 17938-4 N 02/22/2016 2RBC Bld Auto 10:28 Performing Lab Footnotes:1[facility] - [id number] - [address] [place] [address] - JULIA ASHRAF2[facility] - [id number] - [address] - Prenatal Genetic Counselor:, Julia Ashraf MD - JULIA ASHRAF Order: Comprehensive Metabolic PanelLegend: D=Delta, H=High, L=Low, HH= Critical High, LL=Critical Low, AA=Critical Alpha-Numeric, C=Corrected, A= Abnormal LOINC Test Result Flag Range Units Date 2345-7 135 H 70-105 mg/dl 02/22/2016 1Glucose 10:28 [facility] 3094-0 16 7-25 mg/dl 02/22/2016 1BUN 10:28 SerPl-mCnc 2160-0 1.1 0.6-1.3 mg/dl 02/22/2016 1Creat 10:28 SerPl-mCnc 69986-9 15 13-39 02/22/2016 1Creat/Urea 10:28 nit SerPl 2951-2 138 135-145 mmol/L 02/22/2016 1Sodium 10:28 SerPl-sCnc 26799-8 3.6 3.5-5.1 mmol/L 02/22/2016 1Potassium 10:28 SerPl-mCnc 2075-0 103 98-107 mmol/l 02/22/2016 1Chloride 10:28 SerPl-sCnc 2028-9 23 21-31 mmol/l 02/22/2016 1CO2 10:28 SerPl-sCnc 75072-2 16 9-16 mmol/L 02/22/2016 1Anion Gap 10:28 SerPl-sCnc 2692-2 289 277-298 mOsm/kg 02/22/2016 1Osmolality 10:28 SerPl 75610-1 8.6 8.2-10.0 mg/dl 02/22/2016 1Calcium 10:28 SerPl-mCnc 1742-6 30 7-52 IU/L 02/22/2016 1ALT 10:28 SerPl-cCnc 1920-8 50 H 13-39 IU/L 02/22/2016 1AST 10:28 SerPl-cCnc 1715-2 41 34-104 U/L 02/22/2016 1ACP 10:28 SerPl-cCnc 1975-2 1.6 H 0.3-1.0 mg/dl 02/22/2016 1Bilirub 10:28 SerPl-mCnc 2885-2 6.5 6.0-8.3 g/dL 02/22/2016 1Prot 10:28 SerPl-mCnc 1751-7 3.7 3.5-5.7 g/dl 02/22/2016 1Albumin 10:28 SerPl-mCnc 2336-6 2.8 2.3-3.2 g/dL 02/22/2016 1Globulin 10:28 Ser-mCnc 1759-0 1.3 1.2-2.0 02/22/2016 1Albumin/Lynn 10:28 b SerPl 65 60-116 GFRunits 02/22/2016 1GFR 10:28 Performing Lab Footnotes:1[facility] - [id number] - [address] Lalit ASHRAF Order: LactateLegend: D=Delta, H=High, L=Low, HH=Critical High, LL=Critical Low , AA=Critical Alpha-Numeric, C=Corrected, A=Abnormal LOINC Test Result Flag Range Units Date 78903-7 3.6 H 0.5-2.2 mmol/L 02/22/2016 1Lactate 10:28 [facility] Performing Lab Footnotes:1[facility] - [id number] - [address] [place], [place] [address]GL[place] Lalit ASHRAF Order: Urinalysis With Microscopic ExamLegend: D=Delta, H=High, L=Low, HH= Critical High, LL=Critical Low, AA=Critical Alpha-Numeric, C=Corrected, A= Abnormal LOINC Test Result Flag Range Units Date 5778-6 Color Ur Ashley 6 10:28 80719-7 Clarity Clear Ur 6 10:28 2966-0 Sp Gr >=1.030 1.005-1.030 24h Ur 6 10:28 2756-5 pH Ur 5.5 5.0-7.0 6 10:28 17567-1 Negative NEGATIVE Leukocyte esterase 6 10:28 Ur-aCnc 26865-5 Nitrite Negative NEGATIVE Ur Ql Strip.auto 6 10:28 81040-3 Prot 30 mg/dL * NEGATIVE Tiss-mCnt 6 10:28 2349-9 Glucose Negative NEGATIVE Ur Ql 6 10:28 83553-8 MEK Negative NEGATIVE Ur-mCnc 6 10:28 1976-8 Bilirub Small * NEGATIVE Ur Ql 6 10:28 933-2 Bld Prod Negative NEGATIVE Typ BPU 6 10:28 78857-3 1.0 <=1.0 Urobilinogen Ur Ql 6 10:28 1WBC_UM 2-5 * 0-5 /HPF 6 10:28 5808-1 1RBC # 5-10 * 0-5 /HPF UrnS HPF 6 10:28 5787-7 1Epi 2-5 * 0-2 /HPF Cells #/area UrnS 6 10:28 HPF 22310-6 1Trans 0 Cells #/area UrnS 6 10:28 HPF 51505-7 1Renal 0 Epi Cells #/area 6 10:28 UrnS HPF 40000-8 Moderate /HPF 1Bacteria UrnS Ql 6 10:28 Micro 95517-7 1Mucous Large Amount * NONE PRESENT /HPF Threads #/area 6 10:28 UrnS HPF 9842-6 1Casts Rare Hyaline /lpf #/area UrnS LPF casts 6 10:28 Test Comment: 1Rare fine granular casts 68540-5 0 /HPF 02/22/2016 10:28 1Crystals #/area UrnS HPF 64610-1 1C trach Y 02/22/2016 10:28 UrnS Ql Cult Performing Lab Footnotes:1[facility] [id number] - [address] [place], [place] [address]BTJSUDHIR ASHRAF Microbiology Results w SusceptibilitiesOrder: Culture BloodCulture Observations:1Final: No Growth after 5 daysPerforming Lab Footnotes:1[facility] - [id number] - [address] JULIA ASHRAF Order: Culture UrineCulture Observations:1Final: No Growth at 48 hoursPerforming Lab Footnotes:1[facility] - [id number] - [address] JULIA BHANU Radiology Results Order: CTAPC CT Abd Pelvis W/ContrastExam Completion Date:02/22/2016 10:42INDICATION: Abdominal pain COMPARISON: 2015CT Abd Pelvis W/Contrast: CT with IV contrast. No oral contrast. Historyof colon surgery. There is an oval-shaped 15-20 mm calculus in the bladder.Mild bladder wall thickening. These are stable findings since the prior CT.Prostate is enlarged with aright-left diameter of approximately 6.5 cm..Moderately distended gallbladder. No visible gallstones. Liver, spleen, pancreas, kidneys show no evidence of acute disease. Stable 1-2 mm rightkidney stone.Small number of mildly dilated bowel loops in the right lowerquadrant are nonspecific. Focal ileus seems more likely than an obstruction.No evidence of diverticulitis or bowel obstruction. Persistent 15 mm mass inthe splenic flexure of the colon that is unchanged since the prior CT. Exactnature of this is difficult to determine. It could be a bone fragment.Probable medication near the hepatic flexureof the colon. Fibrosis in thelung bases.IMPRESSION: Bladder stone. Possible focal ileus. Persistent finding in thesplenic flexure of the colon. Colonoscopy might be helpful if moreinformation is needed.Released By CHANTAL CURTIS MDDate: 02/24/2016 08:36Order: CXR1VW Chest x-ray 1 viewExam Completion Date:02/22/2016 09:59INDICATION: chills, fever CHEST 1-VIEW UPRIGHT (AP): COMPARISON: 04/03/2012FINDINGS: Minor lower lobe fibrosis. No evidence of pleural effusion,cardiomegaly, or CHF.IMPRESSION: No evidence of acute disease.Released By CHANTAL CURTIS, MDDate: 02/24/2016 08:27 Vital Signs Vitals Value Date Body Temperature 100 F 02/22/2016 Respiratory Rate 24 02/22/2016 O2% BldC Oximetry 90 02/22/2016 BP Systolic 160 mmHg 02/22/2016 BP Diastolic 81 mmHg 02/22/2016 Height 69 in 02/22/2016 Weight Measured 260.14 lbs 02/22/2016 BSA (Body Surface Area) 2.32673 02/22/2016 BMI (Body Mass Index) 38.5 02/22/2016 Plan of Care No data in the system Procedures Code Code System Procedure Name Target Site Date of Procedure [id number] SNOMED Small bowel Unknown series Encounters Date Code Diagnosis Status (ICD10) - A084 VIRAL INTESTINAL INFECTION Active UNSPEC Immunizations No data in the system Functional Status No data in the system Hospital Discharge Instructions No data in the system
--- OUTSIDE RECORDS SUMMARY | 2017-10-03 08:49 | External Medical Summary | Continuity of Care Document ---
:1945 Author Organization [facility] Care Team Providers Name Role Phone LOYDA MEYER Admitting Physician LOYDA MEYER Attending Physician Hospital Admission Diagnosis Code Admission Diagnosis Date [id number] Dribbling of urine Social History Element Code Description Smoking Start Date End Date Description Status Code System Smoking Status 863062094 Never smoker SNOMED-CT Problems Code Code System Problem Name Start Date End Date Status PAIN UNDER R 05/04/2017 Active AXILLA 45599766 SNOMED-CT Urinary tract 12/27/2016 Active infectious disease UTI SYMPTOMS 01/28/2016 Active LEFT EYE 06/11/2015 Active IRRITATION Medications RxNorm Medication Dose Route Instructions Indications Start End Status Date Date 6212893 dabigatran 150 oral orally 2 times Active etexilate 150 MG milligram per day Oral Capsule (administer at approximately the same time(s) each day;) 3443 Diltiazem 180 oral orally every Active milligram morning 311322 Fenofibrate 160 160 oral orally every Active MG Oral Tablet milligram day 256251 Hydrochlorothiazi 0.5 oral orally every Active de 25 MG / capsule morning Triamterene 37.5 (administer MG Oral Capsule after a meal;) 559879 Lisinopril 20 MG 20 oral orally 2 times Active Oral Tablet milligram per day (pt unsure of dose) 910819 rivastigmine 1.5 oral orally 2 times Active milligram per day 1191 Aspirin 81 oral orally 3 times No milligram per week Longer Active 8703 Fenofibrate oral orally every No day (swallow Longer whole; do not Active crush, chew, break, dissolve, or cutpt unsure of dose) 31277 ferrous sulfate oral orally 3 times No per week (pt Longer unsure of Active dosage) 5487 Hydrochlorothiazi oral orally 2 times No de per day (pt Longer unsure of Active dose) 6918 Metoprolol oral orally once No (pt unsure of Longer dose) Active 4063542 rivaroxaban 20 MG 20 oral orally every [...] Date 5778-6 Yellow 07/20/2017 1Color Ur 13:35 26385-0 Clear 07/20/2017 1Clarity Ur 13:35 2966-0 1Sp 1.015 1.005-1.030 07/20/2017 Gr 24h Ur 13:35 2756-5 1pH 7.0 5.0-7.0 07/20/2017 Ur 13:35 42772-9 Negative NEGATIVE 07/20/2017 1Leukocyte 13:35 esterase Ur-aCnc 70281-1 Negative NEGATIVE 07/20/2017 1Nitrite Ur Ql 13:35 Strip.auto 83454-3 Negative NEGATIVE 07/20/2017 1Prot 13:35 Tiss-mCnt 2349-9 Negative NEGATIVE 07/20/2017 1Glucose Ur Ql 13:35 51644-5 1MEK Negative NEGATIVE 07/20/2017 Ur-mCnc 13:35 1977-8 Negative NEGATIVE 07/20/2017 1Bilirub Ur Ql 13:35 47011-5 0.2 <=1.0 07/20/2017 1Urobilinogen 13:35 Ur Ql 933-2 1Bld Negative NEGATIVE 07/20/2017 Prod Typ BPU 13:35 70406-7 N 07/20/2017 1Micro UrnS 13:35 Performing Lab Footnotes:[address] [place] [address] - [id number] - [address] [place] [address] [facility] Vital Signs No data in the system Plan of Care No data in the system Procedures No data in the system Encounters Date Code Diagnosis Status (ICD10) - N3943 POST-VOID DRIBBLING Active Immunizations Vaccine Code Code System Vaccine Name Date Status 141 CVX Influenza, 04/26/2017 Completed seasonal, injectable Functional Status No data in the system Hospital Discharge Instructions No data in the system
--- OUTSIDE RECORDS SUMMARY | 2017-10-03 08:49 | External Medical Summary | Continuity of Care Document ---
:1945 Author Organization [facility] Care Team Providers Name Role Phone LOYDA MEYER Admitting Physician LOYDA MEYER Attending Physician Hospital Admission Diagnosis No data in the System Social History Element Code Description Smoking Start Date End Date Description Status Code System Smoking Status [id number] Unknown if ever SNOMED-CT smoked Problems Code [...] break, dissolve, or cutpt unsure of dose) 10206 ferrous sulfate Oral orally 3 Active times per week (pt unsure of dosage) 5487 Hydrochlorothiazide Oral orally 2 Active times per day (pt unsure of dose) 29264 Lisinopril Oral orally every Active day (pt unsure of dose) 6918 Metoprolol Oral orally once Active (pt unsure of dose) Allergies Code Code Allergy Type Reaction Severity Start End Status System Substance Date Date 7911 RXNorm Penicillins Drug Unknown 06/11/20 Active allergy [...]
--- OUTSIDE RECORDS SUMMARY | 2017-10-03 08:49 | External Medical Summary | Continuity of Care Document ---
:1945 Author Organization [facility] Care Team Providers Name Role Phone JOSHUA TARIQ Admitting Physician Unavailable JOSHUA TARIQ Attending Physician Unavailable LOYDA MEYER Primary Care Physician Hospital Admission Diagnosis Code Admission Diagnosis Date [id number] Pain in thoracic spine Social History Element Code Description Smoking Start Date End Date Description Status Code System Smoking Status 949769531 Never smoker SNOMED-CT Problems Code Code System Problem Name Start Date End Date Status PAIN UNDER R 05/04/2017 Active AXILLA 33152681 SNOMED-CT Urinary tract 12/27/2016 Active infectious disease UTI SYMPTOMS 01/28/2016 Active LEFT EYE 06/11/2015 Active IRRITATION Medications RxNorm Medication Dose Route Instructions Indications Start End Status Date Date 1815691 dabigatran 150 Oral orally 2 times Active etexilate 150 MG milligram per day Oral Capsule (administer at approximately the same time(s) each day;) 3443 Diltiazem 180 Oral orally every Active milligram morning 116854 Fenofibrate 160 160 Oral orally every Active MG Oral Tablet milligram day 944294 Hydrochlorothiazi 0.5 Oral orally every Active de 25 MG / capsule morning Triamterene 37.5 (administer MG Oral Capsule after a meal;) 245425 Lisinopril 20 MG 20 Oral orally 2 times Active Oral Tablet milligram per day (pt unsure of dose) 715121 rivastigmine 1.5 Oral orally 2 times Active milligram per day 1191 Aspirin 81 Oral orally 3 times No milligram per week Longer Active 8703 Fenofibrate Oral orally every No day (swallow Longer whole; do not Active crush, chew, break, dissolve, or cutpt unsure of dose) 36682 ferrous sulfate Oral orally 3 times No per week (pt Longer unsure of Active dosage) 5487 Hydrochlorothiazi Oral orally 2 times No de per day (pt Longer unsure of Active dose) 6918 Metoprolol Oral orally once No (pt unsure of Longer dose) Active 5304237 rivaroxaban 20 MG 20 Oral orally every [...] 245 lbs 05/04/2017 BSA (Body Surface Area) 2.14407 05/04/2017 BMI (Body Mass Index) 35.4 05/04/2017 Plan of Care No data in the system Procedures Code Code System Procedure Name Target Site Date of Procedure COLON Unknown RESECTION TURP Unknown Encounters Date Code Diagnosis Status (ICD10) - P30084W STRN MSC TENDON BACK WALL THOR Active INIT Immunizations Vaccine Code Code System Vaccine Name Date Status 141 CVX Influenza, 04/26/2017 Completed seasonal, injectable Functional Status No data in the system Hospital Discharge Instructions No data in the system
--- OUTSIDE RECORDS SUMMARY | 2017-10-03 08:49 | External Medical Summary | Continuity of Care Document ---
:1945 Author Organization [facility] Care Team Providers Name Role Phone LOYDA MEYER Admitting Physician LOYDA MEYER Attending Physician Hospital Admission Diagnosis Code Admission Diagnosis Date 226539452 Paroxysmal atrial fibrillation Social History Element Code Description Smoking Start Date End Date Description Status Code System Smoking Status 293850760 Never smoker SNOMED-CT Problems Code Code System [...] break, dissolve, or cutpt unsure of dose) 82523 ferrous sulfate Oral orally 3 Active times per week (pt unsure of dosage) 5487 Hydrochlorothiazide Oral orally 2 Active times per day (pt unsure of dose) 05210 Lisinopril Oral orally every Active day (pt [...] Encounters Date Code Diagnosis Status (ICD10) - I480 PAROXYSMAL ATRIAL FIBRILLATION Active Immunizations No data in the system Functional Status No data in the system Hospital Discharge Instructions No data in the system
--- OUTSIDE RECORDS SUMMARY | 2017-10-03 08:49 | External Medical Summary | Summary of Care ---
[...] smoker Vital Signs Date Test Result Details 03-Sep-2016 11:30 BP Systolic 138 mm[Hg] Status: Comments: Location: LUE; Position: Sitting BP Diastolic 74 mm[Hg] Status: Comments: Location: LUE; Position: Sitting Heart Rate 110 /min Status: Comments: Location: ; Weight 234.8 lb Status: Physical Findings 90 Status: Comments: O2 Saturation Body Mass Index Calculated 33.69 kg/m2 Status: Body Surface Area Calculated 2.23 m2 Status: Results Date Description Value Details Results not documented Plan of Care Name Dates Details Planned Observations Planned Goals not documented Planned Encounters Appointment; Provider: Hudson Lee M.D. On 06-Dec-2016 10:45 Instructions Name Dates Details Instructions not documented Encounters Appointment; Hudson Lee M.D. On 14-Jun-2016 Encounter Diagnosis: Problem not documented 11:00
--- OUTSIDE RECORDS SUMMARY | 2017-10-03 08:49 | External Medical Summary | Continuity of Care Document ---
:1945 Author Organization [facility] Care Team Providers Name Role Phone JOSE DE JESUS MA Admitting Physician JOSE DE JESUS MA Attending Physician JHONATHAN CRUZ Consulting Physician Hospital Admission Diagnosis No data in the System Social History Element Code Description Smoking Start Date End Date Description Status Code System Smoking Status 027161104 Never smoker SNOMED-CT Problems Code Code System Problem Name Start Date End Date Status LEFT EYE 06/11/2015 Active IRRITATION Medications SNOMED CT Description 802716608 Drug Treatment Unknown Allergies Code Code Allergy Type Reaction Severity Start End Status System Substance Date Date 7921 RXNorm Penicillins Drug Unknown 06/11/20 Active allergy 15 Results Laboratory Results Order: CBC With Automated DifferentialLegend: D=Delta, H=High, L=Low, HH=Critical High, LL=Critical Low, AA=Critical Alpha-Numeric, C=Corrected, A=Abnormal LOINC Test Result Flag Range Units Date 6689-09 5.5 4.5-11.0 10^3/mm3 09/16/2015 1WBC # Bld 10:20 Auto 60882-3 4.96 4.50-5.90 10^6/mm3 09/16/2015 1Retics # 10:20 Auto 21454-2 15.2 13.5-17.5 g/dl 09/16/2015 1Hgb 10:20 BldV-mCnc [...] 10^3/mm3 09/16/2015 1Platelet # 10:20 Bld Auto 77259-6 9.1 7.4-10.4 09/16/2015 1PMV Bld 10:20 08373-7 62.2 40.0-74.0 % 09/16/2015 1Neutrophils 10:20 # CSF 20.9 14.0-46.0 % 09/16/2015 1LYMPH% 10:20 00609-4 12.2 4.0-13.0 % 09/16/2015 1CD43 Ag Tiss 10:20 Ql ImStn 711-2 3.6 <=4.0 % 09/16/2015 1Eosinophil # 10:20 Bld Auto 704-7 1.1 <=3.0 % 09/16/2015 1Basophils # 10:20 Bld Auto 751-8 3.4 1.8-7.8 09/16/2015 1Neutrophils 10:20 # Bld Auto 71674-8 1.2 0.7-4.5 09/16/2015 1Lymphocytes 10:20 # Bld 38622-8 0.7 0.1-1.0 09/16/2015 1CD43 Ag Tiss 10:20 Ql ImStn 711-2 0.20 <=4.00 09/16/2015 1Eosinophil # 10:20 Bld Auto 704-7 0.06 <=0.20 09/16/2015 1Basophils # 10:20 Bld Auto N 09/16/2015 2MANDIFF 10:20 43075-8 N 09/16/2015 2RBC Bld Auto 10:20 Performing Lab Footnotes:1[facility] [id number] - [address] [place], [place] [address]MJT - JULIA DRUMMOND2[facility] - [id number] - [address] [place] [address] [facility] [place] Operator:Julia MD - JULIA DRUMMOND Vital Signs No data in the system Plan of Care No data in the system Procedures No data in the system Encounters No data in the system Immunizations No data in the system Functional Status No data in the system Hospital Discharge Instructions No data in the system
--- OUTSIDE RECORDS SUMMARY | 2017-10-03 08:49 | External Medical Summary | Continuity of Care Document ---
:1945 Author Organization [facility] Care Team Providers Name Role Phone LOYDA MEYER Admitting Physician LOYDA MEYER Attending Physician Hospital Admission Diagnosis No data in the System Social History Element Code Description Smoking Start Date End Date Description Status Code System Smoking Status [id number] Never smoker SNOMED-CT Problems Code Code System Problem Name Start Date End Date Status PAIN UNDER R 05/04/2017 Active AXILLA 70717180 SNOMED-CT Urinary tract 12/27/2016 Active infectious disease UTI SYMPTOMS 01/28/2016 Active LEFT EYE 06/11/2015 Active IRRITATION Medications RxNorm Medication Dose Route Instructions Indications Start End Status Date Date 2277026 dabigatran 150 oral orally 2 times Active etexilate 150 MG milligram per day Oral Capsule (administer at approximately the same time(s) each day;) 3443 Diltiazem 180 oral orally every Active milligram morning 665428 Fenofibrate 160 160 oral orally every Active MG Oral Tablet milligram day 086212 Hydrochlorothiazi 0.5 oral orally every Active de 25 MG / capsule morning Triamterene 37.5 (administer MG Oral Capsule after a meal;) 535325 Lisinopril 20 MG 20 oral orally 2 times Active Oral Tablet milligram per day (pt unsure of dose) 745824 rivastigmine 1.5 oral orally 2 times Active milligram per day 1191 Aspirin 81 oral orally 3 times No milligram per week Longer Active 8703 Fenofibrate oral orally every No day (swallow Longer whole; do not Active crush, chew, break, dissolve, or cutpt unsure of dose) 19428 ferrous sulfate oral orally 3 times No per week (pt Longer unsure of Active dosage) 5487 Hydrochlorothiazi oral orally 2 times No de per day (pt Longer unsure of Active dose) 6918 Metoprolol oral orally once No (pt unsure of Longer dose) Active 5000638 rivaroxaban 20 MG 20 oral orally every No Oral Tablet milligram day Longer (administer Active with evening meal;) Allergies Code Code Allergy Type Reaction Severity Start End Status System Substance Date Date 7986 RXNorm Penicillins Drug Unknown 06/11/20 Active allergy 15 Results Laboratory Results Order: CreatinineLegend: D=Delta, H=High, L =Low, HH=Critical High, LL=Critical Low, AA=Critical Alpha-Numeric, C=Corrected , A=Abnormal LOINC Test Result Flag Range Units Date 2160-0 1.1 0.6-1.3 mg/dl 08/04/2017 1Creat 08:53 [facility] [place] 67 60-116 GFRunits 08/04/2017 1GFR 08:53 Performing Lab Footnotes:[address] [place] [address] - [id number] - [address] [place] [id number] [place] [address] Radiology Results Order: MRBRNWW MR Brain W & W/O ContrastExam Completion Date:08/04/2017 10:00INDICATION: memory loss; hallucinationsMR Brain W \T\ W/O Contrast: No mass effect or shift of midlinestructures. The ventricular system is not effaced or dilated. No extra- axialfluid collection. Nointracranial hemorrhage. No enhancing lesion followingcontrast administration.Air-fluid levels in both maxillary sinuses, left greater than right,consistent with bilateral acute maxillary sinus disease.The orbits and periorbital structures are normal. No CP angle mass. Noischemic process or stroke event. The posterior fossa is normal. Thesuprasellar region is normal.Several scattered white matter lesions, likely due to chronic small vesselischemic disease.IMPRESSION: No significant brain abnormality. No mass, hemorrhage, edema, orinflammatory process No change when compared with 04/06/2016.Acute bilateral maxillary sinus disease.Released By ANDREY DOW, MDDate: 08/04/2017 13:46 Vital Signs No data in the system [...]
--- OUTSIDE RECORDS SUMMARY | 2017-10-03 08:49 | External Medical Summary | Continuity of Care Document ---
:1945 Author Organization [facility] Care Team Providers Name Role Phone LOYDA MEYER Admitting Physician LOYDA MEYER Attending Physician Hospital Admission Diagnosis No data in the System Social History Element Code Description Smoking Start Date End Date Description Status Code System Smoking Status [id number] Never smoker SNOMED-CT Problems Code Code System [...] break, dissolve, or cutpt unsure of dose) 59279 ferrous sulfate Oral orally 3 Active times per week (pt unsure of dosage) 5487 Hydrochlorothiazide Oral orally 2 Active times per day (pt unsure of dose) 26531 Lisinopril Oral orally every Active day (pt [...]
--- OUTSIDE RECORDS SUMMARY | 2017-10-03 08:49 | External Medical Summary | Continuity of Care Document ---
:1945 Author Organization [facility] Care Team Providers Name Role Phone JACKY MCCRARY Admitting Physician Unavailable JACKY MCCRARY Attending Physician Unavailable Hospital Admission Diagnosis No data in the System Social History Element Code Description Smoking Start Date End Date Description Status Code System Smoking Status [id number] Never smoker SNOMED-CT Problems Code Code System [...] break, dissolve, or cutpt unsure of dose) 06677 ferrous sulfate Oral orally 3 Active times per week (pt unsure of dosage) 5487 Hydrochlorothiazide Oral orally 2 Active times per day (pt unsure of dose) 99733 Lisinopril Oral orally every Active day (pt [...]
--- OUTSIDE RECORDS SUMMARY | 2017-10-03 08:49 | External Medical Summary | Continuity of Care Document ---
:1945 Author Organization [facility] Care Team Providers Name Role Phone HUY ORTEGA Admitting Physician Unavailable HUY ORTEGA Attending Physician Unavailable LOYDA EMYER Primary Care Physician Hospital Admission Diagnosis Code Admission Diagnosis Date [id number] Alzheimer's disease Social History Element Code Description Smoking Start Date End Date Description Status Code System Smoking Status [id number] Unknown if ever SNOMED-CT smoked Problems Code Code System Problem Name Start Date End Date Status PAIN UNDER R 05/04/2017 Active AXILLA 80293419 SNOMED-CT Urinary tract 12/27/2016 Active infectious disease UTI SYMPTOMS 01/28/2016 Active LEFT EYE 06/11/2015 Active IRRITATION Medications RxNorm Medication Dose Route Instructions Indications Start End Status Date Date 6108926 dabigatran 150 oral orally 2 times Active etexilate 150 MG milligram per day Oral Capsule (administer at approximately the same time(s) each day;) 3443 Diltiazem 180 oral orally every Active milligram morning 836464 Fenofibrate 160 160 oral orally every Active MG Oral Tablet milligram day 793315 Hydrochlorothiazi 0.5 oral orally every Active de 25 MG / capsule morning Triamterene 37.5 (administer MG Oral Capsule after a meal;) 857414 Lisinopril 20 MG 20 oral orally 2 times Active Oral Tablet milligram per day (pt unsure of dose) 494855 quetiapine 25 MG 25 oral orally every Active Oral Tablet milligram day at bedtime 182554 rivastigmine 1.5 oral orally 2 times Active milligram per day 1191 Aspirin 81 oral orally 3 times No milligram per week Longer Active 8703 Fenofibrate oral orally every No day (swallow Longer whole; do not Active crush, chew, break, dissolve, or cutpt unsure of dose) 87470 ferrous sulfate oral orally 3 times No per week (pt Longer unsure of Active dosage) 5487 Hydrochlorothiazi oral orally 2 times No de per day (pt Longer unsure of Active dose) 6918 Metoprolol oral orally once No (pt unsure of Longer dose) Active 2262721 rivaroxaban 20 MG 20 oral orally every [...] Result Flag Range Units Date 5778-6 Yellow 09/17/2017 1Color Ur 19:45 89480-9 Clear 09/17/2017 1Clarity Ur 19:45 2966-0 1Sp 1.020 1.005-1.030 09/17/2017 Gr 24h Ur 19:45 2756-5 1pH 5.5 5.0-7.0 09/17/2017 Ur 19:45 43727-1 Negative NEGATIVE 09/17/2017 1Leukocyte 19:45 esterase Ur-aCnc 04519-5 Negative NEGATIVE 09/17/2017 1Nitrite Ur Ql 19:45 Strip.auto 90209-7 Negative NEGATIVE 09/17/2017 1Prot 19:45 Tiss-mCnt 2349-9 Negative NEGATIVE 09/17/2017 1Glucose Ur Ql 19:45 81985-9 1MEK Negative NEGATIVE 09/17/2017 Ur-mCnc 19:45 1977-8 Negative NEGATIVE 09/17/2017 1Bilirub Ur Ql 19:45 72453-6 0.2 <=1.0 09/17/2017 1Urobilinogen 19:45 Ur Ql 933-2 1Bld Negative NEGATIVE 09/17/2017 Prod Typ BPU 19:45 84106-8 N 09/17/2017 1Micro UrnS 19:45 [facility]notes[id number] [address] [place] [address], [place] [address] - JULIAN M [place] Vital Signs Vitals Value Date Body Temperature 36.6 C 09/17/2017 Respiratory Rate 18 09/17/2017 O2% BldC Oximetry 91 09/17/2017 BP Systolic 139 mmHg 09/17/2017 BP Diastolic 78 mmHg 09/17/2017 Height 71 in 09/17/2017 Weight Measured 233.68 lbs 09/17/2017 BSA (Body Surface Area) 2.87356 09/17/2017 BMI (Body Mass Index) 32.7 09/17/2017 Plan of Care No data in the system Procedures No data in the system Encounters Date Code Diagnosis Status (ICD10) - F23 BRIEF PSYCHOTIC DISORDER Active Immunizations Vaccine Code Code System Vaccine Name Date Status 141 CVX Influenza, 04/26/2017 Completed seasonal, injectable Functional Status No data in the system Hospital Discharge Instructions No data in the system
--- OUTSIDE RECORDS SUMMARY | 2017-10-03 08:49 | External Medical Summary | Continuity of Care Document ---
:1945 Author Organization [facility] Care Team Providers Name Role Phone LOYDA MEYER Admitting Physician LOYDA MEYER Attending Physician Hospital Admission Diagnosis Code Admission Diagnosis Date [id number] Persistent atrial fibrillation Social History Element Code Description Smoking Start Date End Date Description Status Code System Smoking Status 930913339 Never smoker SNOMED-CT Problems Code Code System [...] break, dissolve, or cutpt unsure of dose) 61178 ferrous sulfate Oral orally 3 Active times per week (pt unsure of dosage) 5487 Hydrochlorothiazide Oral orally 2 Active times per day (pt unsure of dose) 52624 Lisinopril Oral orally every Active day (pt [...] Encounters Date Code Diagnosis Status (ICD10) - I481 PERSISTENT ATRIAL FIBRILLATION Active Immunizations No data in the system Functional Status No data in the system Hospital Discharge Instructions No data in the system
--- OUTSIDE RECORDS SUMMARY | 2017-10-03 08:49 | External Medical Summary | Continuity of Care Document ---
:1945 Author Organization [facility] Care Team Providers Name Role Phone [facility] Admitting Physician Unavailable LOYDA MEYER Attending Physician Hospital Admission Diagnosis Code Admission Diagnosis Date [id number] Urinary tract infectious disease Social History Element Code Description Smoking Start Date End Date Description Status Code System Smoking Status 125783852 Unknown if ever SNOMED-CT smoked Problems Code Code System Problem Name Start Date End Date Status PAIN UNDER R 05/04/2017 Active AXILLA 17774422 SNOMED-CT Urinary tract 12/27/2016 Active infectious disease UTI SYMPTOMS 01/28/2016 Active LEFT EYE 06/11/2015 Active IRRITATION Medications RxNorm Medication Dose Route Instructions Indications Start End Status Date Date 5655515 dabigatran 150 oral orally 2 times Active etexilate 150 MG milligram per day Oral Capsule (administer at approximately the same time(s) each day;) 3443 Diltiazem 180 oral orally every Active milligram morning 865255 Fenofibrate 160 160 oral orally every Active MG Oral Tablet milligram day 798580 Hydrochlorothiazi 0.5 oral orally every Active de 25 MG / capsule morning Triamterene 37.5 (administer MG Oral Capsule after a meal;) 913884 Lisinopril 20 MG 20 oral orally 2 times Active Oral Tablet milligram per day (pt unsure of dose) 653024 rivastigmine 1.5 oral orally 2 times Active milligram per day 1191 Aspirin 81 oral orally 3 times No milligram per week Longer Active 8703 Fenofibrate oral orally every No day (swallow Longer whole; do not Active crush, chew, break, dissolve, or cutpt unsure of dose) 75052 ferrous sulfate oral orally 3 times No per week (pt Longer unsure of Active dosage) 5487 Hydrochlorothiazi oral orally 2 times No de per day (pt Longer unsure of Active dose) 6918 Metoprolol oral orally once No (pt unsure of Longer dose) Active 6761232 rivaroxaban 20 MG 20 oral orally every No Oral Tablet milligram day Longer (administer Active with evening meal;) Allergies Code Code Allergy Type Reaction Severity Start End Status System Substance Date Date 7986 RXNorm Penicillins Drug Unknown 06/11/20 Active allergy 15 Results Microbiology Results w SusceptibilitiesOrder: Culture UrineCulture Observations:1Final: Three or more colony types observed, probable contamination; [id number].Performing Lab Footnotes:1[facility] - [id number] - [address] [place] [id number] [place] [address]__ ____ Vital Signs No data in the system Plan of Care No data in the system Procedures No data in the system Encounters Date Code Diagnosis Status (ICD10) - N390 UTI SITE NOT SPECIFIED Active Immunizations Vaccine Code Code System Vaccine Name Date Status 141 CVX Influenza, 04/26/2017 Completed seasonal, injectable Functional Status No data in the system Hospital Discharge Instructions No data in the system
--- OUTSIDE RECORDS SUMMARY | 2017-10-03 08:50 | External Medical Summary | Continuity of Care Document ---
:1945 Author Organization [facility] Care Team Providers Name Role Phone LOYDA MEYER Admitting Physician LOYDA MEYER Attending Physician Hospital Admission Diagnosis Code Admission Diagnosis Date ENCOUNTER FOR OTHER SPECIFIED SPECIAL EXAMINATIONS Social History Element Code Description Smoking Start Date End Date Description Status Code System Smoking Status 420665605 Never smoker SNOMED-CT Problems Code Code System Problem Name Start Date End Date Status PAIN UNDER R 05/04/2017 Active AXILLA 45285323 SNOMED-CT Urinary tract 12/27/2016 Active infectious disease UTI SYMPTOMS 01/28/2016 Active LEFT EYE 06/11/2015 Active IRRITATION Medications RxNorm Medication Dose Route Instructions Indications Start End Status Date Date 8132638 dabigatran 150 oral orally 2 times Active etexilate 150 MG milligram per day Oral Capsule (administer at approximately the same time(s) each day;) 3443 Diltiazem 180 oral orally every Active milligram morning 825957 Fenofibrate 160 160 oral orally every Active MG Oral Tablet milligram day 455542 Hydrochlorothiazi 0.5 oral orally every Active de 25 MG / capsule morning Triamterene 37.5 (administer MG Oral Capsule after a meal;) 541972 Lisinopril 20 MG 20 oral orally 2 times Active Oral Tablet milligram per day (pt unsure of dose) 077123 rivastigmine 1.5 oral orally 2 times Active milligram per day 1191 Aspirin 81 oral orally 3 times No milligram per week Longer Active 8703 Fenofibrate oral orally every No day (swallow Longer whole; do not Active crush, chew, break, dissolve, or cutpt unsure of dose) 89128 ferrous sulfate oral orally 3 times No per week (pt Longer unsure of Active dosage) 5487 Hydrochlorothiazi oral orally 2 times No de per day (pt Longer unsure of Active dose) 6918 Metoprolol oral orally once No (pt unsure of Longer dose) Active 6008390 rivaroxaban 20 MG 20 oral orally every [...] 2160-0 1.1 0.6-1.3 mg/dl 08/04/2017 1Creat 08:53 [facility] 67 60-116 GFRunits 08/04/2017 1GFR 08:53 Performing Lab Footnotes:[address] [place] [address] - [id number] - [address] [place] [address] Radiology Results Order: MRBRNWW MR Brain W [...] Encounters Date Code Diagnosis Status (ICD10) - Z0189 ENCOUNTER OTHER SPEC SPECIAL Active EXAMS Immunizations Vaccine Code Code System Vaccine Name Date Status 141 CVX Influenza, 04/26/2017 Completed seasonal, injectable Functional Status No data in the system Hospital Discharge Instructions No data in the system
--- OUTSIDE RECORDS SUMMARY | 2017-10-03 08:50 | External Medical Summary | Continuity of Care Document ---
:1945 Demographics Phone Unavailable Preferred Language Unknown Marital Status Unknown [facility] Affiliation Unknown Race Unknown Ethnic Group Unknown Author Organization [facility] Allergies Active Description Code Type Severity Reaction Onset Reported/ Identified Relationship Clinical to Patient Status Yes Penicillins 476 Unknown N/A 06/11/2015 Yes Penicillins 476 Aller moderate Dizziness 03/16/2016 gen Group Medications There is no data. Problems Date Dx Attending Type Code Diagnosis Diagnosed By Coded 07/02/2015 Adrian MARIE S05.02XA INJURY OF JUVENTINO CONJUNCTIVA AND CORNEAL ABRASION WITHOUT FOREIGN BODY, LEFT EYE, INITIAL ENCOUNTER 09/23/2015 JOSE DE JESUS MA Z01.810 ENCOUNTER FOR PREPROCEDURAL CARDIOVASCULAR EXAMINATION 09/23/2015 JOSE DE JESUS MA Z01.812 ENCOUNTER FOR PREPROCEDURAL LABORATORY EXAMINATION 02/28/2016 ORESTES HERNANDEZ I10 ESSENTIAL (PRIMARY) HYPERTENSION 02/28/2016 ORESTES HERNANDEZ N30.01 ACUTE CYSTITIS WITH HEMATURIA 02/28/2016 ORESTES HERNANDEZ R31.9 HEMATURIA, UNSPECIFIED 02/28/2016 ORESTES HERNANDEZ R82.99 OTHER ABNORMAL FINDINGS IN URINE 03/19/2016 Randolph Bravo R93.3 Abnormal Findings On Dx Imaging Of Prt Digestive Tract 03/31/2016 CHANTAL STOREY A08.4 VIRAL INTESTINAL INFECTION, UNSPECIFIED 03/31/2016 CHANTAL STOREY I10 ESSENTIAL (PRIMARY) HYPERTENSION 03/31/2016 CHANTAL STOREY J18.9 PNEUMONIA, UNSPECIFIED ORGANISM 03/31/2016 CHANTAL STOREY N20.0 CALCULUS OF KIDNEY 03/31/2016 CHANTAL STOREY N21.0 CALCULUS IN BLADDER 03/31/2016 CHANTAL STOREY N40.0 ENLARGED PROSTATE WITHOUT LOWER URINARY TRACT SYMPTOMS 03/31/2016 CHANTAL STOREY R19.7 DIARRHEA, UNSPECIFIED 03/31/2016 CHANTAL STOREY R82.99 OTHER ABNORMAL FINDINGS IN URINE 04/19/2016 LOYDA MEYER J34.1 CYST AND MUCOCELE OF M~ffarmer NOSE AND NASAL SINUS 04/19/2016 LOYDA MEYER R41.3 OTHER AMNESIA M~ffarmer 06/22/2016 LOYDA MEYER M25.551 PAIN IN RIGHT HIP M~ffarmer 06/22/2016 LOYDA MEYER M46.86 OTHER SPECIFIED M~ffarmer INFLAMMATORY SPONDYLOPATHIES, LUMBAR REGION 07/13/2016 LOYDA MEYER M54.16 RADICULOPATHY, M~ffarmer LUMBAR REGION 07/13/2016 LOYDA MEYER M54.5 LOW BACK PAIN M~ffarmer 08/12/2016 Tootie MCCRARY M48.06 SPINAL STENOSIS, JACKY T LUMBAR REGION 08/12/2016 Adrian MCCRARY 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 DISORDERS OF VEINS 11/01/2016 ORESTES WYATT N21.0 CALCULUS IN BLADDER D. 11/01/2016 ORESTES WYATT N28.89 OTHER SPECIFIED D. DISORDERS OF KIDNEY AND URETER 11/01/2016 ORESTES WYATT R31.21 ASYMPTOMATIC D. MICROSCOPIC HEMATURIA 11/11/2016 LOYDA MEYER I48.1 PERSISTENT ATRIAL M~ffarmer FIBRILLATION 11/23/2016 LOYDA MEYER I48.0 PAROXYSMAL ATRIAL M~ffarmer FIBRILLATION 01/19/2017 ELISABETH SOTELO N20.0 CALCULUS OF KIDNEY 01/19/2017 ELISABETH SOTELO A R30.0 DYSURIA 01/19/2017 ELISABETH SOTELO R33.9 RETENTION OF URINE, UNSPECIFIED 02/28/2017 LOYDA MEYER I48.2 CHRONIC ATRIAL M~ffarmer FIBRILLATION 03/01/2017 LOYDA MEYER I48.2 CHRONIC ATRIAL M~ffarmer FIBRILLATION 03/14/2017 Orestes Wyatt N40.1 Benign Prostatic Hyperplasia With Lower Urinary Tract Symptoms 05/19/2017 EAGLE SAWANT I48.2 CHRONIC ATRIAL L. FIBRILLATION 05/19/2017 EAGLE SAWANT R07.9 CHEST PAIN, L. UNSPECIFIED 05/19/2017 EAGLE SAWANT R44.3 HALLUCINATIONS, L. UNSPECIFIED 05/19/2017 EAGLE SAWANT R53.83 OTHER FATIGUE L. 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 Results There is no data. Encounters ACCT No. Visit Discharge Status Pt. Type Provider Facility Loc./Unit Complaint Date/Time [id number] 06/19/2015 06/19/2015 CLS Outpatie PhysicianRachid [facility]SC 0211 08:48:00 23:59:59 nt [facility] Referring Center [id number] 03/09/2017 03/10/2017 DIS Outpatie Catherine Wyatt INPT TVAP/TURP, 10:58:00 12:49:00 nt [facility] [id number] 03/18/2016 03/18/2016 DIS Outpatie Catherine Bravo OUTPT Colonoscopy 06:54:00 23:59:00 nt [facility] [id number] 07/21/2657 Document 00:00:00 Registra tion [id number] 09/17/2017 ACT Unknown Jazmin ORTEGA ANXIETY / 19:06:00 [facility] [id number] 08/04/2017 ACT Unknown BETSY, 08:38:00 LOYDA M~ffarmer [id number] 07/20/2017 ACT Unknown MEYER, 10:44:00 LOYDA M~ffarmer [id number] 06/16/2017 ACT Unknown BETSY, 17:46:00 LOYDA M~ffarmer [id number] 05/13/2017 ACT Unknown JESE, 09:44:00 EAGLE Ramsey [id number] 05/04/2017 ACT Unknown MARCIANO, CHEST PAIN 20:00:00 JOSHUA Chawla [id number] 02/17/2017 ACT Unknown BETSY, 10:01:00 LOYDA M~ffarmer [id number] 12/27/2016 ACT Unknown Jazmin SOTELO NSER UTI 19:36:00 ELISABETH [facility] [id number] 11/11/2016 ACT Unknown MEYER, 08:26:00 LOYDA M~ffarmer [id number] 10/27/2016 ACT Unknown MEYER, 08:54:00 LOYDA M~ffarmer [id number] 09/29/2016 ACT Unknown LA, 11:48:00 ORESTES Drummond [id number] 07/27/2016 ACT Unknown STEPHANIE 09:07:00 JACKY Archer [id number] 07/05/2016 ACT Unknown MEYER, 12:16:00 LOYDA M~ffarmer [id number] 06/15/2016 ACT Unknown BETSY CKFP 13:11:00 LOYDA M~ffarmer [id number] 04/06/2016 ACT Unknown MEYER, 09:03:00 LOYDA M~ffarmer [id number] 02/22/2016 ACT Unknown Jazmin STOREY NSER CONFUSION 09:30:00 CHANTAL Johnson [facility] [id number] 01/28/2016 ACT Unknown Jazmin HERNANDEZ NSER UTI 20:28:00 [facility] [id number] 09/16/2015 ACT Unknown FRANCESCA, 09:57:00 JOSE DE JESUS Juarez [id number] 06/11/2015 ACT Unknown TONEY Wu NSER FOREIGN BODY 20:39:00 JUVENTINO GUTIERREZ (EYE) : [facility]
--- OUTSIDE RECORDS SUMMARY | 2017-10-03 08:50 | External Medical Summary | Continuity of Care Document ---
:1945 Author Organization [facility] Care Team Providers Name Role Phone HUY ORTEGA Admitting Physician Unavailable HUY ORTEGA Attending Physician Unavailable LOYDA MEYER Primary Care Physician Hospital Admission Diagnosis No data in the System Social History Element Code Description Smoking Start Date End Date Description Status Code System Smoking Status [id number] Unknown if ever SNOMED-CT smoked Problems Code Code System Problem Name Start Date End Date Status PAIN UNDER R 05/04/2017 Active AXILLA 72137024 SNOMED-CT Urinary tract 12/27/2016 Active infectious disease UTI SYMPTOMS 01/28/2016 Active LEFT EYE 06/11/2015 Active IRRITATION Medications RxNorm Medication Dose Route Instructions Indications Start End Status Date Date 6307738 dabigatran 150 oral orally 2 times Active etexilate 150 MG milligram per day Oral Capsule (administer at approximately the same time(s) each day;) 3443 Diltiazem 180 oral orally every Active milligram morning 201123 Fenofibrate 160 160 oral orally every Active MG Oral Tablet milligram day 535034 Hydrochlorothiazi 0.5 oral orally every Active de 25 MG / capsule morning Triamterene 37.5 (administer MG Oral Capsule after a meal;) 982325 Lisinopril 20 MG 20 oral orally 2 times Active Oral Tablet milligram per day (pt unsure of dose) 781322 quetiapine 25 MG 25 oral orally every Active Oral Tablet milligram day at bedtime 112357 rivastigmine 1.5 oral orally 2 times Active milligram per day 1191 Aspirin 81 oral orally 3 times No milligram per week Longer Active 8703 Fenofibrate oral orally every No day (swallow Longer whole; do not Active crush, chew, break, dissolve, or cutpt unsure of dose) 68700 ferrous sulfate oral orally 3 times No per week (pt Longer unsure of Active dosage) 5487 Hydrochlorothiazi oral orally 2 times No de per day (pt Longer unsure of Active dose) 6918 Metoprolol oral orally once No (pt unsure of Longer dose) Active 9341764 rivaroxaban 20 MG 20 oral orally every [...] Date 5778-6 Yellow 09/17/2017 1Color Ur 19:45 70355-3 Clear 09/17/2017 1Clarity Ur 19:45 2966-0 1Sp 1.020 1.005-1.030 09/17/2017 Gr 24h Ur 19:45 2756-5 1pH 5.5 5.0-7.0 09/17/2017 Ur 19:45 32428-4 Negative NEGATIVE 09/17/2017 1Leukocyte 19:45 esterase Ur-aCnc 49440-4 Negative NEGATIVE 09/17/2017 1Nitrite Ur Ql 19:45 Strip.auto 73508-2 Negative NEGATIVE 09/17/2017 1Prot 19:45 Tiss-mCnt 2349-9 Negative NEGATIVE 09/17/2017 1Glucose Ur Ql 19:45 00078-4 1MEK Negative NEGATIVE 09/17/2017 Ur-mCnc 19:45 1977-8 Negative NEGATIVE 09/17/2017 1Bilirub Ur Ql 19:45 64853-5 0.2 <=1.0 09/17/2017 1Urobilinogen 19:45 Ur Ql 933-2 1Bld Negative NEGATIVE 09/17/2017 Prod Typ BPU 19:45 39364-8 N 09/17/2017 1Micro UrnS 19:45 Performing Lab Footnotes:1[facility] - [id number] - [address] [facility] [place] [address] - [place] Vital Signs Vitals Value Date Body Temperature 36.6 C 09/17/2017 Respiratory Rate 18 09/17/2017 O2% BldC Oximetry 91 09/17/2017 BP Systolic 139 mmHg 09/17/2017 BP Diastolic 78 mmHg 09/17/2017 Height 71 in 09/17/2017 Weight Measured 233.68 lbs 09/17/2017 BSA (Body Surface Area) 2.46243 09/17/2017 BMI (Body Mass Index) 32.7 09/17/2017 [...]
--- NOTE | 2017-10-03 09:11 | XRay Report ---
EXAM: XR chest 2V COMPARISON: None available. HISTORY: generations eval . FINDINGS: The heart is upper limits normal to mildly enlarged. There is a rounded structure at the lower mediastinum which may represent a moderate-sized hiatal hernia. The pulmonary vascularity appears unremarkable. The lungs are clear. There is no evidence for pleural effusion. There is no evidence for a pneumothorax. No osseous abnormalities are identified. IMPRESSION: 1. Heart is upper limits of normal to mildly enlarged. 2. Moderate-sized hiatal hernia. LOCATION OF DICTATION: [facility] .
[2017-10-03] MEDS ORDERED: LORazepam 0.5 MG TABLET PO PRN ×2 (10:09→10:37)
[2017-10-03] MEDS ORDERED: HALOPERIDOL 0.5 MG TABLET PO PRN (10:37)
[2017-10-03] MEDS ORDERED: HALOPERIDOL 5 MG/ML INJECTION IM PRN (10:37)
[2017-10-03 10:40] VITALS: BMI 32.4
--- NOTE | 2017-10-03 13:27 | History & Physical Report ---
History of Present Illness Date: 10/03/17 Chief complaint: dementia, hallucinations, paranoia HPI: Patient is a pleasant 71-year-old male who is brought to [facility] today by his family for medical clearance in the emergency room followed by direct admission to [facility] unit for ongoing psychiatric treatment. Patient has had a known diagnosis of dementia. Family reports mental status changes over the last year, however, a rapid decline over the past 6 months. Patient is having increased hallucinations with paranoia behavior. She lives independently with his in [facility] and is under the primary care of Dr. Henrik Brown. He is seen on admission to [facility] unit. He is alert, oriented and pleasant. He does have a difficult time giving accurate history as he often gets off track and needs to be redirected by his family. He denies any current illnesses or injuries. Family does report he has had some upper respiratory congestion with a cough the past several days. No fevers, chest pain, or GI concerns. Evaluation was performed in the emergency room, white count was found to be 4.2 , hemoglobin 10.1, hematocrit 34.3. Straight panel was unremarkable. Her urinalysis was normal. Twelve-lead EKG did reveal rate controlled atrial fibrillation, which is not new for patient. Chest x-ray revealed moderate sized hiatal hernia. No other abnormal cardiopulmonary findings. Review of Systems ROS unobtainable: due to mental status All systems PM: 10-point ROS was reviewed, no additional remarkable complaints except Past Medical History Patient Stated Medical History Dementia Hypertension Hyperlipidemia Atrial fibrillation BPH Surgical History: TURP. Abdominal surgery at age 7 Family History Updates: Parents both with Dementia - Social History Smoking status: Never smoker Substance use type: does not use Alcohol intake frequency: does not drink Housing: house Household members: spouse Current occupational status: retired (CPA, [employer]) Current residence: Apartment/Private Home Social history: PCP Dr Henrik Brown- [place], [place] Medications Home Medications Medication Instructions Recorded Confirmed Type Dabigatran [Pradaxa] 1 cap PO BID 10/03/17 10/03/17 History Fenofibrate [Lofibra] 160 mg PO DAILY 10/03/17 10/03/17 History LORazepam [Ativan] 0.5 mg PO BID PRN 10/03/17 10/03/17 History Lisinopril [Zestril] 20 mg PO BID 10/03/17 10/03/17 History Multivitamin [One Daily] 1 tab PO DAILY 10/03/17 10/03/17 History Quetiapine Fumarate [Seroquel] 2 mg PO TID 10/03/17 10/03/17 History Sertraline [Zoloft] 1 tab PO DAILY 10/03/17 10/03/17 History Triamterene/Hydrochlorothiazid 0.5 tab PO DAILY 10/03/17 10/03/17 History [Triamterene-Hctz 37.5-25 mg Cp] dilTIAZem HCl [Dilt-Xr] 1 tab PO DAILY 10/03/17 10/03/17 History Allergies Allergy/AdvReac Type Severity Reaction Status Date / Time No Known Allergies Allergy Verified 10/03/17 08:05 Exam Vital Signs: Temperature 97.4 F 10/03/17 10:37 Pulse Rate 81 10/03/17 10:37 Respiratory Rate 16 10/03/17 10:37 Blood Pressure 147/91 H 10/03/17 10:37 Pulse Oximetry 95 10/03/17 10:37 Telemetry Rhythm: A-fib Height/Weight/BMI: Height 1.78 m Weight 102.5 kg Body Mass Index 32.4 - Constitutional Present: no acute distress, well nourished, well developed - Routine HEENT Exam Eye: Present: EOMI ENT: Present: mucous membranes moist, dentition normal - Routine Respiratory Exam Present: CTA bilaterally. Absent: wheezes - Routine Cardiovascular Exam Present: RRR, S1, S2, irregular rhythm. Absent: murmur - Routine Abdominal Exam Present: soft, normoactive bowel sounds, non distended. Absent: tenderness - Routine Extremities Exam Present: full ROM, pulses intact - Routine Skin Exam Present: intact, dry, warm - Routine Neurological Exam Present: alert, CN II-XII intact, moving all extremities - Routine Psychiatric Exam Present: cooperative Results - Labs CBC & Chem 7: 10/03/17 08:29 10/03/17 08:29 Assessment and Plan (1) Alzheimer's dementia with behavioral disturbance Current visit: Yes Status: Acute Assessment and Plan: Impression Dementia with behaviors Hallucinations Paranoia Chronic atrial fibrillation Chronic anticoagulation with Pradaxa secondary to atrial fibrillation Hypertension Hyperlipidemia BPH Plan Agree with admission to the generations unit under the care of Dr. Guo for acute behaviors. Home medications reviewed. Continue on Cardizem, lisinopril, Maxide for treatment of hypertension and atrial fib. Continue on chronic anticoagulation, Pradaxa He may have regular diet Encourage patient to participate in unit activities and provide a safe environment The hospitalists services will continue to follow patient during her hospitalization. At time of discharge medical care will return to PCP Dr Henrik Brown DVT Prophylaxis: Pradaxa Resuscitation Status: Full Code - Physician Narrative Physician: Jorge Rhoades MD Narrative: Date: 10/03/17 Time: 1520 Have independently interviewed and examined pt. Chart reviewed. Case discussed my [employer]PER[employer]. Care plan developed with my supervision; agree with above. Admitted to [facility] for evaluation and treatment of his dementia with increasing hallucinations and paranoia. Cognitive status has been rapidly declining in the past months. Medically, patient reports he is feeling well. Breathing stable-not occasional cough, but not SOA unless he over exerts himself. Not having chest pressure, pain or palpitations. Denies ab pain, nausea or vomiting. Bowels stable. Notes stable 1-2 x a night nocturia, some dribbling recently. Notes rare leg cramps at night; no leg pain/cramping with walking. Lungs: clear bilaterally, no distress CV: Irregular AB: soft nt/nt +BS EXT: + 1 edema bilaterally MSE: awake alert Plan: Agree with admission of patient to [facility] for further geropsychiatric evaluation and treatment. Provide safe, supportive environment for patient. Continue home medications. Psychiatry will manage and adjust psychoactive medications. Medically stable for Generation floor activities. Hospital Course Summary Disclaimer: The visit summary below is not to be considered part of the above Progress Note. Hospital Course: Impression Dementia with behaviors Hallucinations Paranoia Chronic atrial fibrillation Hypertension Hyperlipidemia BPH Plan Agree with admission to the [facility] unit under the care of Dr. Guo for acute behaviors. Home medications reviewed. Continue on Cardizem, lisinopril, Maxide for treatment of hypertension and atrial fib. Continue on chronic anticoagulation, Pradaxa He may have regular diet Encourage patient to participate in unit activities and provide a safe environment The hospitalists services will continue to follow patient during her hospitalization. At time of discharge medical care will return to PCP Dr Henrik Brown
[2017-10-03] MEDS ORDERED: QUETIAPINE 25 MG TABLET PO SCH (15:00)
[2017-10-03] MEDS: QUETIAPINE 50 MG TABLET PO SCH ×2 (16:43→18:37)
[2017-10-03] MEDS: LISINOPRIL 20 MG TABLET PO SCH ×3 (18:38→20:25)
[2017-10-03] MEDS ORDERED: LORazepam 1 MG TABLET PO ONE (19:08)
[2017-10-04] MEDS: QUETIAPINE 50 MG TABLET PO SCH ×4 (05:22→20:03)
[2017-10-04] MEDS: TRIAMTERENE/HCTZ 37.5 MG-25 MG TABLET PO SCH (08:07)
[2017-10-04] MEDS: SERTRALINE 50 MG TABLET PO SCH (08:07)
[2017-10-04] MEDS: LISINOPRIL 20 MG TABLET PO SCH ×2 (08:08→20:02)
[2017-10-04] MEDS: MULTI-VITAMIN PLAIN TABLET PO SCH (08:08)
[2017-10-04] MEDS ORDERED: FENOFIBRATE 160 MG TABLET PO SCH (09:00)
[2017-10-04] MEDS ORDERED: [UNRECOGNIZED DRUG - OTHER] PO SCH (09:00)
[2017-10-04] MEDS ORDERED: DILTIAZEM HCL PO SCH (09:00)
[2017-10-04] MEDS: LORazepam 0.5 MG TABLET PO PRN (11:55)
[2017-10-04] MEDS: LORazepam INTENSOL 1mg/0.5ml ORAL LIQUID PO PRN (18:20)
[2017-10-04] MEDS ORDERED: MIRTAZAPINE 15 MG TABLET PO SCH (21:00)
--- NOTE | 2017-10-04 22:23 | 24 Hour Neuropsychiatic Eval ---
Date of Admission: 10/03/17 09:51 Chief complaint: "Other people tell me I'm irritable" History of Present Illness: Patient is a 71-year-old , retired male admitted to the unit due to increasing agitation, psychotic symptoms and being difficult to manage at home. Last week he got upset that his family removed his gun, took the keys to the car, eloped and was missing for an entire day. Patient is overall pleasant during the day and admits to some memory problems, and that he may have some increased irritability. He endorses frustration but denies feeling depressed. He complains of some difficulty with words which is likely expressive aphasia (saying "South" when he means "North" for example). He denies SI or HI. He endorses frequent VH "for at least the last couple of months." He has quite limited insight into personality changes and many symptoms. His states that he has also had difficulty sleeping at night. His /DPOA is also present. There are some varying timelines, but it seems as though symptoms began ~2 years ago and have progressed even further in the past 2-3 months. He had a workup from a neurologist at who suggested Alzheimer's vs. LBD, but patient "has gotten worse" with any meds they have tried. Patient denies prior psychiatric history and seems to have been high-functioning , working as a CONSULTING ENGINEER, premorbidly. Patient struggled greatly with clock drawing. He was able to remember 2/3 words after a ~5 minute delay. Psychosis: Hallucinations/Illusions, Disorganized speech Dementia: Memory Impairment, Aphasia, Poor Executive Functioning [facility] Patient Stated Medical History Alzheimer's Disease Yes Cardiac Arrhythmia Yes: afib Hypertension Yes Hx Benign Prostatic Yes: 2017 Hyperplasia Surgical History: TURP. Abdominal surgery at age 7 Family History: Both of patient's parents had dementia, his father had symptoms similar to him. - Social History Smoking status: Never smoker Current residence: Apartment/Private Home Social history: Strengths: High functioning premorbidly, has supportive family, able to express himself well verbally, has periods of better insight Review of Systems All systems: reviewed and no additional remarkable complaints except as stated - Neurological Neurological: Present: abnormal speech, memory loss - Psychiatric Psychiatric: Present: as per HPI, abnormal sleep pattern, behavioral changes, hallucinations, mood swings, paranoia, visual hallucinations Mental Status Exam Vitals: Last Vital Signs Temp 99.2 F 10/04/17 16:00 Pulse 85 10/04/17 16:00 Resp 18 10/04/17 16:00 BP 117/67 10/04/17 16:00 Pulse Ox 92 10/04/17 16:00 Height: 1.78 m Weight: 102.5 kg - Mental Status Exam Muscle Strength/Tone: Normal Dressing: Casual Grooming: Fair Attitude: Cooperative Motor Activity: Normal Eye Contact: Good Speech: Slowed Volume: Loud Rhythm: Appropriate Rhythm Sensory: Alert Orientation: Disoriented to time (able to name month/year), Oriented to person, Oriented to place Mood: Euthymic Affect: Relaxed (during interview) Rate of Thoughts: Delayed Thought Organization: Confused Associations: Illogical (at times) Abstract Reasoning: Poor abstract reasoning Thought Content: Ruminations (about symptoms), Paranoia (reported by family) Perception/Psychotic: Psychotic Current Hallucinations: Visual (frequent, vivid) Language: Naming Intact Fund of Knowledge: Other (Decreased from premorbid baseline) Memory: Poor-recent Suicidal Ideation: Denies Homicidal Ideation: Denies Insight: Impaired Judgement: Impaired Impulse Control: Poor - Laboratory Result Diagrams: 10/03/17 08:29 10/03/17 08:29 Assessment and Plan (1) Psychosis Qualifiers: Psychosis type: unspecified psychosis type Qualified Code(s): F29 - Unspecified psychosis not due to a substance or known physiological condition Current visit: Yes Status: Acute (2) Major neurocognitive disorder Problem details: Moderate, with behavioral disturbance Etiology: Lewy body dementia vs. LBD mixed with Alzheimer's Current visit: Yes Status: Acute Admit to [facility] for psychiatric evaluation and stabilization. Maintain safety and elopement precautions. Review medical records brought by family; labs from admission (CBC, CMP, TSH, UA , B12 and folate levels) Continue home meds for the time being and monitor mood/behavior on the unit Patient may need LTC placement after discharge Will gather further collateral from /family Estimated Total Length of Stay (Days): 10
--- NOTE | 2017-10-04 22:31 | Neuropsych Progress Note ---
[facility]ations Subjective Date: 10/05/17 - Sujective/Severity of Illness Medications: Dabigatran (Pradaxa) 150 mg PO BID [facility] Last Admin: 10/04/17 20:03 Dose: 150 mg Diltiazem HCl (Cardizem Cd 180 Mg) 180 mg PO DAILY [facility] Last Admin: 10/04/17 08:07 Dose: 180 mg Fenofibrate (Lofibra) 160 mg PO [facility] Lisinopril (Prinivil) 20 mg PO BID [facility] Last Admin: 10/04/17 20:02 Dose: 20 mg Lorazepam (Ativan) 1 mg PO Q6H PRN PRN Reason: Extreme agitation Last Admin: 10/04/17 11:55 Dose: 1 mg Lorazepam (Ativan Inj) 1 mg IM Q6H PRN PRN Reason: Extreme agitation Lorazepam (Ativan Intensol) 1 mg PO Q6H PRN Last Admin: 10/04/17 18:20 Dose: 1 mg Lorazepam (Ativan Inj) 2 mg IM ONCE ONE Stop: 10/04/17 20:16 Mirtazapine (Remeron) 7.5 mg PO HS [facility] Last Admin: 10/04/17 20:03 Dose: 7.5 mg Multivitamins (Theragran) 1 tab PO DAILY [facility] Last Admin: 10/04/17 08:08 Dose: 1 tab Quetiapine Fumarate (Seroquel) 50 mg PO TID [facility] Last Admin: 10/04/17 20:03 Dose: 50 mg Sertraline HCl (Zoloft) 50 mg PO DAILY [facility] Last Admin: 10/04/17 08:07 Dose: 50 mg Triamterene/HCTZ (Maxzide-25 Eqv) 0.5 tab PO DAILY [facility] Last Admin: 10/04/17 08:07 Dose: 0.5 tab Subjective: Patient seen and chart reviewed. Case discussed with treatment team. On interview, patient is pleasant and reports he is in a good mood, enjoying playing Bingo. He seems to be pleasant and more rationale during the day and then at night. It appears he is sensitive to antipsychotic medication. Patient denies any SI or HI. He FREQUENTLY has VH on the unit, throughout the day, and moves many objects to his mouth (attempted to eat lotion, a Bingo ball) . Patient denies any adverse side effects related to psychotropic medications. Nursing staff report patient was agitated last night, exit-seeking and kicking the doors. He was given PRN Ativan 1mg and then calmed after a time and went to sleep. Patient has been adherent with medications. Patient slept 8.5 hours overnight. VSS. Patient is eating well. Start Time: 14:00 Stop Time: 14:20 Mental Status Exam Vitals: Last Vital Signs Temp 99.2 F 10/04/17 16:00 Pulse 85 10/04/17 16:00 Resp 18 10/04/17 16:00 BP 117/67 10/04/17 16:00 Pulse Ox 92 10/04/17 16:00 Height: 1.78 m Weight: 102.5 kg - Mental Status Exam Muscle Strength/Tone: Normal Dressing: Casual Grooming: Fair Attitude: Cooperative Motor Activity: Normal Eye Contact: Good Speech: Slowed Volume: Loud Rhythm: Appropriate Rhythm Orientation: Disoriented to time (able to name month/year), Oriented to person, Oriented to place Mood: Euthymic (labile affect, more agitated in evening/sundowns) Rate of Thoughts: Delayed Thought Organization: Confused Associations: Illogical (at times) Abstract Reasoning: Poor abstract reasoning Thought Content: Ruminations (about symptoms), Paranoia (reported by family) Perception/Psychotic: Psychotic Current Hallucinations: Visual (frequent, vivid) Language: Naming Intact Fund of Knowledge: Other (Decreased from premorbid baseline) Memory: Poor-recent Suicidal Ideation: Denies Homicidal Ideation: Denies Insight: Impaired Judgement: Impaired Impulse Control: Poor - Laboratory Result Diagrams: 10/03/17 08:29 10/03/17 08:29 Assessment and Plan (1) Psychosis Qualifiers: Psychosis type: unspecified psychosis type Qualified Code(s): F29 - Unspecified psychosis not due to a substance or known physiological condition Current visit: Yes Status: Acute (2) Major neurocognitive disorder Problem details: Moderate, with behavioral disturbance Etiology: Lewy body dementia vs. frontotemporal vs. mixed Current visit: Yes Status: Acute Will start Depakote DR 500mg PO daily with dinner to [employer] sundowning, irritability as patient seems to be sensitive to neuroleptics; monitor response. Estimated Total Length of Stay (Days): 10 Hospital Course Summary Disclaimer: The visit summary below is not to be considered part of the above Progress Note. Hospital Course: Impression Dementia with behaviors Hallucinations Paranoia Chronic atrial fibrillation Hypertension Hyperlipidemia BPH Plan Agree with admission to the [facility] unit under the care of Dr. Guo for acute behaviors. Home medications reviewed. Continue on Cardizem, lisinopril, Maxide for treatment of hypertension and atrial fib. Continue on chronic anticoagulation, Pradaxa He may have regular diet Encourage patient to participate in unit activities and provide a safe environment The hospitalists services will continue to follow patient during her hospitalization. At time of discharge medical care will return to PCP Dr Henrik Brown 10/03/17 Psych: Continue home medications, monitor behavior. 10/04/17 Psych: Will start Depakote DR 500mg PO daily with dinner to [employer] sundowning, irritability as patient seems to be sensitive to neuroleptics; monitor response.
[2017-10-05] MEDS: TRIAMTERENE/HCTZ 37.5 MG-25 MG TABLET PO SCH (08:16)
[2017-10-05] MEDS: LISINOPRIL 20 MG TABLET PO SCH (08:16)
[2017-10-05] MEDS: QUETIAPINE 50 MG TABLET PO SCH ×3 (08:17→20:07)
[2017-10-05] MEDS: SERTRALINE 50 MG TABLET PO SCH (08:17)
[2017-10-05] MEDS: MULTI-VITAMIN PLAIN TABLET PO SCH (08:17)
[2017-10-05] MEDS: FENOFIBRATE 160 MG TABLET PO SCH (08:17)
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
[2017-10-05] MEDS: DIVALPROEX 500 MG TABLET PO SCH (17:44)
[2017-10-05] MEDS: LORazepam 1 MG TABLET PO SCH ×2 (17:44→20:07)
[2017-10-06] MEDS: LISINOPRIL 20 MG TABLET PO SCH ×3 (02:00→20:10)
[2017-10-06] MEDS: QUETIAPINE 50 MG TABLET PO SCH ×3 (08:02→20:09)
[2017-10-06] MEDS: MULTI-VITAMIN PLAIN TABLET PO SCH (08:02)
[2017-10-06] MEDS: FENOFIBRATE 160 MG TABLET PO SCH (08:02)
[2017-10-06] MEDS: TRIAMTERENE/HCTZ 37.5 MG-25 MG TABLET PO SCH (08:03)
[2017-10-06] MEDS: SERTRALINE 50 MG TABLET PO SCH (08:03)
[2017-10-06] MEDS: ACETAMINOPHEN 325 MG TABLET PO PRN (12:47)
--- NOTE | 2017-10-06 13:50 | Neuropsych Progress Note ---
[facility] Subjective Date: 10/06/17 - Sujective/Severity of Illness Medications: Acetaminophen (Tylenol) 325 - 650 mg PO Q5H PRN PRN Reason: Discomfort Last Admin: 10/06/17 12:47 Dose: 650 mg Dabigatran (Pradaxa) 150 mg PO BID [facility] Last Admin: 10/06/17 08:02 Dose: 150 mg Diltiazem HCl (Cardizem Cd 180 Mg) 180 mg PO DAILY [facility] Last Admin: 10/06/17 08:02 Dose: 180 mg Divalproex Sodium (Depakote) 500 mg PO 18 [facility] Last Admin: 10/05/17 17:44 Dose: 500 mg Fenofibrate (Lofibra) 160 mg PO WB [facility] Last Admin: 10/06/17 08:02 Dose: 160 mg Lisinopril (Prinivil) 20 mg PO BID [facility] Last Admin: 10/06/17 08:02 Dose: 20 mg Lorazepam (Ativan) 1 mg PO Q6H PRN PRN Reason: Extreme agitation Last Admin: 10/04/17 11:55 Dose: 1 mg Lorazepam (Ativan Inj) 1 mg IM Q6H PRN PRN Reason: Extreme agitation Last Admin: 10/05/17 02:40 Dose: 1 mg Lorazepam (Ativan Intensol) 1 mg PO Q6H PRN Last Admin: 10/04/17 18:20 Dose: 1 mg Lorazepam (Ativan) 1 mg PO 18,21 [facility] Last Admin: 10/05/17 20:07 Dose: 1 mg Multivitamins (Theragran) 1 tab PO DAILY [facility] Last Admin: 10/06/17 08:02 Dose: 1 tab Quetiapine Fumarate (Seroquel) 50 mg PO TID [facility] Last Admin: 10/06/17 08:02 Dose: 50 mg Sertraline HCl (Zoloft) 50 mg PO DAILY [facility] Last Admin: 10/06/17 08:03 Dose: 50 mg Triamterene/HCTZ (Maxzide-25 Eqv) 0.5 tab PO DAILY [facility] Last Admin: 10/06/17 08:03 Dose: 0.5 tab Subjective: Patient seen and chart reviewed. Case discussed with treatment team. On interview, patient is pleasant and reports his mood is okay other than not wanting to be in the hospital. He reports feeling well physically. Patient denies any SI, HI but continues to have frequent visual and tactile hallucinations. Patient denies any adverse side effects related to psychotropic medications. Nursing staff report patient was tense at times but redirectable without incident last evening. Patient has been adherent with medications. Patient slept 7.25 hours overnight. VSS. Patient is eating well. Psychotropic PRNs required in the past 24 hours: none. Start Time: 08:00 Stop Time: 08:20 Mental Status Exam Vitals: Last Vital Signs Temp 98.3 F 10/06/17 07:59 Pulse 83 10/06/17 07:59 Resp 14 10/06/17 07:59 BP 135/88 10/06/17 07:59 Pulse Ox 95 10/06/17 07:59 Height: 1.78 m Weight: 102.5 kg - Mental Status Exam Muscle Strength/Tone: Normal Dressing: Casual Grooming: Fair Attitude: Cooperative (more labile in the evenings) Motor Activity: Normal Eye Contact: Good Speech: Slowed Volume: Loud Rhythm: Appropriate Rhythm Orientation: Disoriented to time, Oriented to person, Oriented to place Mood: Neutral Affect: Relaxed (on interview today, labile in evenings) Rate of Thoughts: Delayed Thought Organization: Confused Associations: Illogical (at times) Abstract Reasoning: Poor abstract reasoning Thought Content: Ruminations (about symptoms) Perception/Psychotic: Psychotic Current Hallucinations: Visual (frequent, vivid), Tactile Language: Naming Intact Fund of Knowledge: Other (Decreased from premorbid baseline) Memory: Poor-recent Suicidal Ideation: Denies Homicidal Ideation: Denies Insight: Impaired Judgement: Impaired Impulse Control: Poor - Laboratory Result Diagrams: 10/03/17 08:29 10/03/17 08:29 Assessment and Plan (1) Psychosis Qualifiers: Psychosis type: unspecified psychosis type Qualified Code(s): F29 - Unspecified psychosis not due to a substance or known physiological condition Current visit: Yes Status: Acute (2) Major neurocognitive disorder Problem details: Moderate, with behavioral disturbance Etiology: Lewy body dementia vs. frontotemporal vs. mixed Other medical problems: Chronic atrial fibrillation Hypertension Hyperlipidemia BPH Current visit: Yes Status: Acute Continue current care while Depakote approaches steady-state; will then try to decrease Ativan once calmer. Estimated Total Length of Stay (Days): 10 Hospital Course Summary Disclaimer: The visit summary below is not to be considered part of the above Progress Note. Hospital Course: Impression Dementia with behaviors Hallucinations Paranoia Chronic atrial fibrillation Hypertension Hyperlipidemia BPH Plan Agree with admission to the [facility] unit under the care of Dr. Guo for acute behaviors. Home medications reviewed. Continue on Cardizem, lisinopril, Maxide for treatment of hypertension and atrial fib. Continue on chronic anticoagulation, Pradaxa He may have regular diet Encourage patient to participate in unit activities and provide a safe environment The hospitalists services will continue to follow patient during her hospitalization. At time of discharge medical care will return to PCP Dr Henrik Brown 10/03/17 Psych: Continue home medications, monitor behavior. 10/04/17 Psych: Will start Depakote DR 500mg PO daily with dinner to target sundowning, irritability as patient seems to be sensitive to neuroleptics; monitor response. 10/05/17 Psych: Will add Depakote 250mg PO q AM with breakfast and continue 500mg PO at dinner. Will schedule Ativan 1mg PO BID at 1800, 2100. Although patient is unsteady with this medication, we need to be able to control his agitation to protect the safety of staff until Depakote is titrated higher. He is quite sensitive to neuroleptics, which seem to increase agitation. 10/06/17 Psych: Continue current care while Depakote approaches steady-state; will then try to decrease Ativan once calmer.
[2017-10-06] MEDS: DIVALPROEX 500 MG TABLET PO SCH (17:48)
[2017-10-06] MEDS: LORazepam 1 MG TABLET PO SCH ×2 (17:48→20:09)
[2017-10-07] MEDS ORDERED: DIVALPROEX 250 MG TABLET PO SCH (09:00)
[2017-10-07] MEDS: FENOFIBRATE 160 MG TABLET PO SCH (09:03)
[2017-10-07] MEDS: QUETIAPINE 50 MG TABLET PO SCH ×3 (09:05→20:13)
[2017-10-07] MEDS: TRIAMTERENE/HCTZ 37.5 MG-25 MG TABLET PO SCH (09:05)
[2017-10-07] MEDS: MULTI-VITAMIN PLAIN TABLET PO SCH (09:05)
[2017-10-07] MEDS: LISINOPRIL 20 MG TABLET PO SCH ×2 (09:05→20:12)
[2017-10-07] MEDS: SERTRALINE 50 MG TABLET PO SCH (09:05)
[2017-10-07] MEDS: ACETAMINOPHEN 325 MG TABLET PO PRN (12:44)
--- NOTE | 2017-10-07 16:08 | Neuropsych Progress Note ---
[facility] Subjective Date: 10/07/17 - Sujective/Severity of Illness Medications: Acetaminophen (Tylenol) 325 - 650 mg PO Q5H PRN PRN Reason: Discomfort Last Admin: 10/07/17 12:44 Dose: 650 mg Dabigatran (Pradaxa) 150 mg PO BID [facility] Last Admin: 10/07/17 09:03 Dose: 150 mg Diltiazem HCl (Cardizem Cd 180 Mg) 180 mg PO DAILY [facility] Last Admin: 10/07/17 09:03 Dose: 180 mg Divalproex Sodium (Depakote) 500 mg PO 18 [facility] Last Admin: 10/06/17 17:48 Dose: 500 mg Divalproex Sodium (Depakote) 250 mg PO DAILY [facility] Last Admin: 10/07/17 09:04 Dose: 250 mg Fenofibrate (Lofibra) 160 mg PO WB [facility] Last Admin: 10/07/17 09:03 Dose: 160 mg Lisinopril (Prinivil) 20 mg PO BID [facility] Last Admin: 10/07/17 09:05 Dose: 20 mg Lorazepam (Ativan) 1 mg PO Q6H PRN PRN Reason: Extreme agitation Last Admin: 10/04/17 11:55 Dose: 1 mg Lorazepam (Ativan Inj) 1 mg IM Q6H PRN PRN Reason: Extreme agitation Last Admin: 10/05/17 02:40 Dose: 1 mg Lorazepam (Ativan Intensol) 1 mg PO Q6H PRN Last Admin: 10/04/17 18:20 Dose: 1 mg Lorazepam (Ativan) 1 mg PO 18,21 [facility] Last Admin: 10/06/17 20:09 Dose: 1 mg Multivitamins (Theragran) 1 tab PO DAILY [facility] Last Admin: 10/07/17 09:05 Dose: 1 tab Quetiapine Fumarate (Seroquel) 50 mg PO TID [facility] Last Admin: 10/07/17 14:46 Dose: 50 mg Sertraline HCl (Zoloft) 50 mg PO DAILY [facility] Last Admin: 10/07/17 09:05 Dose: 50 mg Triamterene/HCTZ (Maxzide-25 Eqv) 0.5 tab PO DAILY [facility] Last Admin: 10/07/17 09:05 Dose: 0.5 tab Subjective: Patient seen and chart reviewed. Case discussed with treatment team. On interview, patient is pleasantly confused. He continues to have frequent hallucinations. He reports he is not happy with being here but feels okay otherwise. He is not fully oriented to situation. Patient denies any SI, HI but continues to have frequent visual and tactile hallucinations. Patient denies any adverse side effects related to psychotropic medications. Nursing staff report patient was tense at times but redirectable without incident last evening. He appeared to escalate more in the afternoon after lunch. Patient has been adherent with medications. Patient slept well overnight. VSS. Patient is eating well. Psychotropic PRNs required in the past 24 hours: Ativan 1mg PO x1. Start Time: 13:00 Stop Time: 13:20 Mental Status Exam Vitals: Last Vital Signs Temp 99.2 F 10/07/17 15:54 Pulse 95 10/07/17 15:54 Resp 18 10/07/17 15:54 BP 100/59 10/07/17 15:54 Pulse Ox 92 10/07/17 15:54 Height: 1.78 m Weight: 102.5 kg - Mental Status Exam Muscle Strength/Tone: Normal Dressing: Casual Grooming: Fair Attitude: Cooperative (improving, some tenseness/irritability at times) Motor Activity: Normal Eye Contact: Good Speech: Slowed Volume: Loud Rhythm: Appropriate Rhythm Orientation: Disoriented to time, Oriented to person, Oriented to place Mood: Neutral Affect: Relaxed (on interview, more labile at times through day) Rate of Thoughts: Delayed Thought Organization: Confused Associations: Illogical (at times) Abstract Reasoning: Poor abstract reasoning Thought Content: Ruminations (about symptoms) Perception/Psychotic: Psychotic Current Hallucinations: Visual (frequent, vivid), Tactile Language: Naming Intact Fund of Knowledge: Other (Decreased from premorbid baseline) Memory: Poor-recent Suicidal Ideation: Denies Homicidal Ideation: Denies Insight: Impaired Judgement: Impaired Impulse Control: Poor - Laboratory Result Diagrams: 10/07/17 08:53 10/03/17 08:29 Laboratory Results - last 24 hr 10/07/17 08:53 WBC 3.6 L RBC 4.51 Hgb 10.3 L Hct 35.5 L MCV 78.7 L MCH 22.8 L MCHC 29.0 L RDW Std Deviation 51.4 H Plt Count 330 MPV 8.9 L Immature Gran % (Auto) 0.0 Neut % (Auto) 68.9 H Lymph % (Auto) 22.2 L [place] % (Auto) 7.8 Eos % (Auto) 0.8 Baso % (Auto) 0.3 Neut # (Auto) 2.5 Lymph # (Auto) 0.8 L [place] # (Auto) 0.3 Eos # (Auto) 0.0 Baso # (Auto) 0.0 Abs Immat Gran (auto) 0.00 Assessment and Plan (1) Psychosis Qualifiers: Psychosis type: unspecified psychosis type Qualified Code(s): F29 - Unspecified psychosis not due to a substance or known physiological condition Current visit: Yes Status: Acute (2) Major neurocognitive disorder Problem details: Moderate, with behavioral disturbance Etiology: Lewy body dementia vs. frontotemporal vs. mixed Other medical problems: Chronic atrial fibrillation Hypertension Hyperlipidemia BPH Current visit: Yes Status: Acute Will increase Depakote DR to 250mg PO BID at 0800, 1200 and 500mg at 1800. Will decrease Ativan to 0.5mg PO at 1800 and continue 1mg PO q HS. He still has additional PRNs available for agitation. Hospital Course Summary Disclaimer: The visit summary below is not to be considered part of the above Progress Note. Hospital Course: Impression Dementia with behaviors Hallucinations Paranoia Chronic atrial fibrillation Hypertension Hyperlipidemia BPH Plan Agree with admission to the [facility] unit under the care of Dr. Guo for acute behaviors. Home medications reviewed. Continue on Cardizem, lisinopril, Maxide for treatment of hypertension and atrial fib. Continue on chronic anticoagulation, Pradaxa He may have regular diet Encourage patient to participate in unit activities and provide a safe environment The hospitalists services will continue to follow patient during her hospitalization. At time of discharge medical care will return to PCP Dr Henrik Brown 10/03/17 Psych: Continue home medications, monitor behavior. 10/04/17 Psych: Will start Depakote DR 500mg PO daily with dinner to target sundowning, irritability as patient seems to be sensitive to neuroleptics; monitor response. 10/05/17 Psych: Will add Depakote 250mg PO q AM with breakfast and continue 500mg PO at dinner. Will schedule Ativan 1mg PO BID at 1800, 2100. Although patient is unsteady with this medication, we need to be able to control his agitation to protect the safety of staff until Depakote is titrated higher. He is quite sensitive to neuroleptics, which seem to increase agitation. 10/06/17 Psych: Continue current care while Depakote approaches steady-state; will then try to decrease Ativan once calmer. 10/07/17 Psych: Will increase Depakote DR to 250mg PO BID at 0800, 1200 and 500mg at 1800. Will decrease Ativan to 0.5mg PO at 1800 and continue 1mg PO q HS. He still has additional PRNs available for agitation.
[2017-10-07] MEDS: DIVALPROEX 500 MG TABLET PO SCH (17:43)
[2017-10-07] MEDS: LORazepam 1 MG TABLET PO SCH (20:12)
[2017-10-08] MEDS: ACETAMINOPHEN 325 MG TABLET PO PRN ×2 (04:55→20:52)
[2017-10-08] MEDS: FENOFIBRATE 160 MG TABLET PO SCH (08:28)
[2017-10-08] MEDS: DIVALPROEX 250 MG TABLET PO SCH ×2 (08:28→11:38)
[2017-10-08] MEDS: LISINOPRIL 20 MG TABLET PO SCH ×2 (08:29→21:02)
[2017-10-08] MEDS: SERTRALINE 50 MG TABLET PO SCH (08:30)
[2017-10-08] MEDS: QUETIAPINE 50 MG TABLET PO SCH ×4 (08:30→21:02)
[2017-10-08] MEDS: MULTI-VITAMIN PLAIN TABLET PO SCH (08:30)
[2017-10-08] MEDS: TRIAMTERENE/HCTZ 37.5 MG-25 MG TABLET PO SCH (08:31)
--- NOTE | 2017-10-08 08:31 | Neuropsych Progress Note ---
[facility] Subjective Date: 10/08/17 - Sujective/Severity of Illness Medications: Acetaminophen (Tylenol) 325 - 650 mg PO Q5H PRN PRN Reason: Discomfort Last Admin: 10/08/17 04:55 Dose: 650 mg Dabigatran (Pradaxa) 150 mg PO BID [facility] Last Admin: 10/07/17 20:12 Dose: 150 mg Diltiazem HCl (Cardizem Cd 180 Mg) 180 mg PO DAILY [facility] Last Admin: 10/07/17 09:03 Dose: 180 mg Divalproex Sodium (Depakote) 500 mg PO 18 [facility] Last Admin: 10/07/17 17:43 Dose: 500 mg Divalproex Sodium (Depakote) 250 mg PO 0812 [facility] Fenofibrate (Lofibra) 160 mg PO WB [facility] Last Admin: 10/07/17 09:03 Dose: 160 mg Lisinopril (Prinivil) 20 mg PO BID [facility] Last Admin: 10/07/17 20:12 Dose: 20 mg Lorazepam (Ativan) 1 mg PO Q6H PRN PRN Reason: Extreme agitation Last Admin: 10/04/17 11:55 Dose: 1 mg Lorazepam (Ativan Inj) 1 mg IM Q6H PRN PRN Reason: Extreme agitation Last Admin: 10/05/17 02:40 Dose: 1 mg Lorazepam (Ativan Intensol) 1 mg PO Q6H PRN Last Admin: 10/04/17 18:20 Dose: 1 mg Lorazepam (Ativan) 1 mg PO 21 [facility] Last Admin: 10/07/17 20:12 Dose: 1 mg Multivitamins (Theragran) 1 tab PO DAILY [facility] Last Admin: 10/07/17 09:05 Dose: 1 tab Quetiapine Fumarate (Seroquel) 50 mg PO TID [facility] Last Admin: 10/07/17 20:13 Dose: 50 mg Sertraline HCl (Zoloft) 50 mg PO DAILY [facility] Last Admin: 10/07/17 09:05 Dose: 50 mg Triamterene/HCTZ (Maxzide-25 Eqv) 0.5 tab PO DAILY [facility] Last Admin: 10/07/17 09:05 Dose: 0.5 tab Subjective: Patient seen and chart reviewed. Nursing reports pt is doing better. Slept well and had a good appetite. Continue to have VH at times No behaviors and no PRN's. On face to face the pt states he is doing well. He is pleasant. Mood is stable. Denies pain. Requests to go home. Tolerating meds Start Time: 08:15 Stop Time: 08:30 Mental Status Exam Vitals: Last Vital Signs Temp 97.6 F 10/08/17 08:00 Pulse 91 10/08/17 08:00 Resp 20 10/08/17 08:00 BP 123/81 10/08/17 08:00 Pulse Ox 95 10/08/17 08:00 Height: 1.78 m Weight: 102.5 kg - Mental Status Exam Muscle Strength/Tone: Normal Dressing: Casual Grooming: Fair Attitude: Cooperative (improving, some tenseness/irritability at times) Motor Activity: Normal Eye Contact: Good Speech: Slowed Volume: Normal Rhythm: Appropriate Rhythm Orientation: Disoriented to time, Oriented to person, Oriented to place Mood: Neutral Rate of Thoughts: Delayed Thought Organization: Confused Associations: Illogical (at times) Abstract Reasoning: Poor abstract reasoning Thought Content: Ruminations (about symptoms) Perception/Psychotic: Psychotic Current Hallucinations: Visual (frequent, vivid), Tactile Language: Naming Intact Fund of Knowledge: Other (Decreased from premorbid baseline) Memory: Poor-recent Suicidal Ideation: Denies Homicidal Ideation: Denies Insight: Impaired Judgement: Impaired Impulse Control: Poor - Laboratory Result Diagrams: 10/07/17 08:53 10/03/17 08:29 Laboratory Results - last 24 hr 10/07/17 08:53 WBC 3.6 L RBC 4.51 Hgb 10.3 L Hct 35.5 L MCV 78.7 L MCH 22.8 L MCHC 29.0 L RDW Std Deviation 51.4 H Plt Count 330 MPV 8.9 L Immature Gran % (Auto) 0.0 Neut % (Auto) 68.9 H Lymph % (Auto) 22.2 L [place] % (Auto) 7.8 Eos % (Auto) 0.8 Baso % (Auto) 0.3 Neut # (Auto) 2.5 Lymph # (Auto) 0.8 L [place] # (Auto) 0.3 Eos # (Auto) 0.0 Baso # (Auto) 0.0 Abs Immat Gran (auto) 0.00 Assessment and Plan (1) Psychosis Qualifiers: Psychosis type: unspecified psychosis type Qualified Code(s): F29 - Unspecified psychosis not due to a substance or known physiological condition Current visit: Yes Status: Acute (2) Major neurocognitive disorder Problem details: Moderate, with behavioral disturbance Etiology: Lewy body dementia vs. frontotemporal vs. mixed Other medical problems: Chronic atrial fibrillation Hypertension Hyperlipidemia BPH Current visit: Yes Status: Acute Estimated Total Length of Stay (Days): 10 Hospital Course Summary Disclaimer: The visit summary below is not to be considered part of the above Progress Note. Hospital Course: Impression Dementia with behaviors Hallucinations Paranoia Chronic atrial fibrillation Hypertension Hyperlipidemia BPH Plan Agree with admission to the [facility] unit under the care of Dr. Guo for acute behaviors. Home medications reviewed. Continue on Cardizem, lisinopril, Maxide for treatment of hypertension and atrial fib. Continue on chronic anticoagulation, Pradaxa He may have regular diet Encourage patient to participate in unit activities and provide a safe environment The hospitalists services will continue to follow patient during her hospitalization. At time of discharge medical care will return to PCP Dr Henrik Brown 10/03/17 Psych: Continue home medications, monitor behavior. 10/04/17 Psych: Will start Depakote DR 500mg PO daily with dinner to target sundowning, irritability as patient seems to be sensitive to neuroleptics; monitor response. 10/05/17 Psych: Will add Depakote 250mg PO q AM with breakfast and continue 500mg PO at dinner. Will schedule Ativan 1mg PO BID at 1800, 2100. Although patient is unsteady with this medication, we need to be able to control his agitation to protect the safety of staff until Depakote is titrated higher. He is quite sensitive to neuroleptics, which seem to increase agitation. 10/06/17 Psych: Continue current care while Depakote approaches steady-state; will then try to decrease Ativan once calmer. 10/07/17 Psych: Will increase Depakote DR to 250mg PO BID at 0800, 1200 and 500mg at 1800. Will decrease Ativan to 0.5mg PO at 1800 and continue 1mg PO q HS. He still has additional PRNs available for agitation. 10/08/17 Doing better. Continues to have VH but no behaviors or PRN's. Continue current care
[2017-10-08] MEDS: LORazepam 0.5 MG TABLET PO PRN (14:49)
[2017-10-08] MEDS: DIVALPROEX 500 MG TABLET PO SCH (18:35)
[2017-10-08] MEDS: LORazepam 1 MG TABLET PO SCH ×2 (19:27→21:02)
[2017-10-09] MEDS: DIVALPROEX 250 MG TABLET PO SCH ×2 (08:10→12:32)
[2017-10-09] MEDS: FENOFIBRATE 160 MG TABLET PO SCH (08:10)
[2017-10-09] MEDS: MULTI-VITAMIN PLAIN TABLET PO SCH (08:11)
[2017-10-09] MEDS: QUETIAPINE 50 MG TABLET PO SCH ×3 (08:11→20:07)
[2017-10-09] MEDS: TRIAMTERENE/HCTZ 37.5 MG-25 MG TABLET PO SCH (08:11)
[2017-10-09] MEDS: SERTRALINE 50 MG TABLET PO SCH (08:11)
[2017-10-09] MEDS: LISINOPRIL 20 MG TABLET PO SCH ×2 (08:15→20:07)
--- NOTE | 2017-10-09 10:32 | Neuropsych Progress Note ---
[facility] Subjective Date: 10/09/17 - Sujective/Severity of Illness Medications: Acetaminophen (Tylenol) 325 - 650 mg PO Q5H PRN PRN Reason: Discomfort Last Admin: 10/08/17 20:52 Dose: 650 mg Dabigatran (Pradaxa) 150 mg PO BID [facility] Last Admin: 10/09/17 08:10 Dose: 150 mg Diltiazem HCl (Cardizem Cd 180 Mg) 180 mg PO DAILY [facility] Last Admin: 10/09/17 08:10 Dose: 180 mg Divalproex Sodium (Depakote) 500 mg PO 18 [facility] Last Admin: 10/08/17 18:35 Dose: 500 mg Divalproex Sodium (Depakote) 250 mg PO 08,12 [facility] Last Admin: 10/09/17 08:10 Dose: 250 mg Fenofibrate (Lofibra) 160 mg PO WB [facility] Last Admin: 10/09/17 08:10 Dose: 160 mg Lisinopril (Prinivil) 20 mg PO BID [facility] Last Admin: 10/09/17 08:15 Dose: Not Given Lorazepam (Ativan) 1 mg PO Q6H PRN PRN Reason: Extreme agitation Last Admin: 10/08/17 14:49 Dose: 1 mg Lorazepam (Ativan Inj) 1 mg IM Q6H PRN PRN Reason: Extreme agitation Last Admin: 10/05/17 02:40 Dose: 1 mg Lorazepam (Ativan Intensol) 1 mg PO Q6H PRN Last Admin: 10/04/17 18:20 Dose: 1 mg Lorazepam (Ativan) 1 mg PO 21 [facility] Last Admin: 10/08/17 21:02 Dose: Not Given Multivitamins (Theragran) 1 tab PO DAILY [facility] Last Admin: 10/09/17 08:11 Dose: 1 tab Quetiapine Fumarate (Seroquel) 50 mg PO TID [facility] Last Admin: 10/09/17 08:11 Dose: 50 mg Sertraline HCl (Zoloft) 50 mg PO DAILY [facility] Last Admin: 10/09/17 08:11 Dose: 50 mg Triamterene/HCTZ (Maxzide-25 Eqv) 0.5 tab PO DAILY [facility] Last Admin: 10/09/17 08:11 Dose: 0.5 tab Subjective: Patient seen and chart reviewed. Nursing reports pt can be agitated at times and confused. He is redirectable. On face to face the pt is irritable and confused. He is only oriented to self. He states he is being held "hostage". He has poor insight into his illness. Tolerating meds Start Time: 10:00 Stop Time: 10:15 Mental Status Exam Vitals: Last Vital Signs Temp 97.7 F 10/09/17 08:00 Pulse 89 10/09/17 08:00 Resp 20 10/09/17 08:00 BP 126/85 10/09/17 08:00 Pulse Ox 94 10/09/17 08:00 Height: 1.78 m Weight: 102.5 kg - Mental Status Exam Muscle Strength/Tone: Normal Dressing: Casual Grooming: Fair Attitude: Cooperative (improving, some tenseness/irritability at times) Motor Activity: Normal Eye Contact: Good Speech: Slowed Volume: Normal Rhythm: Appropriate Rhythm Orientation: Disoriented to time, Oriented to person, Oriented to place Mood: Neutral Rate of Thoughts: Delayed Thought Organization: Confused Associations: Illogical (at times) Abstract Reasoning: Poor abstract reasoning Thought Content: Ruminations (about symptoms) Perception/Psychotic: Psychotic Current Hallucinations: Visual (frequent, vivid), Tactile Language: Naming Intact Fund of Knowledge: Other (Decreased from premorbid baseline) Memory: Poor-recent Suicidal Ideation: Denies Homicidal Ideation: Denies Insight: Impaired Judgement: Impaired Impulse Control: Poor - Laboratory Result Diagrams: 10/07/17 08:53 10/03/17 08:29 Assessment and Plan (1) Psychosis Qualifiers: Psychosis type: unspecified psychosis type Qualified Code(s): F29 - Unspecified psychosis not due to a substance or known physiological condition Current visit: Yes Status: Acute (2) Major neurocognitive disorder Problem details: Moderate, with behavioral disturbance Etiology: Lewy body dementia vs. frontotemporal vs. mixed Other medical problems: Chronic atrial fibrillation Hypertension Hyperlipidemia BPH Current visit: Yes Status: Acute Estimated Total Length of Stay (Days): 10 Hospital Course Summary Disclaimer: The visit summary below is not to be considered part of the above Progress Note. Hospital Course: Impression Dementia with behaviors Hallucinations Paranoia Chronic atrial fibrillation Hypertension Hyperlipidemia BPH Plan Agree with admission to the [facility] unit under the care of Dr. Guo for acute behaviors. Home medications reviewed. Continue on Cardizem, lisinopril, Maxide for treatment of hypertension and atrial fib. Continue on chronic anticoagulation, Pradaxa He may have regular diet Encourage patient to participate in unit activities and provide a safe environment The hospitalists services will continue to follow patient during her hospitalization. At time of discharge medical care will return to PCP Dr Henrik Brown 10/03/17 Psych: Continue home medications, monitor behavior. 10/04/17 Psych: Will start Depakote DR 500mg PO daily with dinner to target sundowning, irritability as patient seems to be sensitive to neuroleptics; monitor response. 10/05/17 Psych: Will add Depakote 250mg PO q AM with breakfast and continue 500mg PO at dinner. Will schedule Ativan 1mg PO BID at 1800, 2100. Although patient is unsteady with this medication, we need to be able to control his agitation to protect the safety of staff until Depakote is titrated higher. He is quite sensitive to neuroleptics, which seem to increase agitation. 10/06/17 Psych: Continue current care while Depakote approaches steady-state; will then try to decrease Ativan once calmer. 10/07/17 Psych: Will increase Depakote DR to 250mg PO BID at 0800, 1200 and 500mg at 1800. Will decrease Ativan to 0.5mg PO at 1800 and continue 1mg PO q HS. He still has additional PRNs available for agitation. 10/08/17 Doing better. Continues to have VH but no behaviors or PRN's. Continue current care 10/09/17 Psych- Remains irritable at times. Continue current care
[2017-10-09] MEDS: LORazepam INTENSOL 1mg/0.5ml ORAL LIQUID PO PRN (10:48)
--- NOTE | 2017-10-09 16:46 | Progress Note ---
- Date 10/09/17 Subjective: Mayco is seen in follow up. He is playing cards with staff- affect is depressed. He states 'I just need my son to love me.' I expressed to him that I was sorry about his situation- he replies "I don't think you are." D/W staff and notes reviewed. He was very agitated this morning- he required PRN. Was very aggressive with staff. Continue to have hallucinations. Objective Vital signs: Temperature 98.4 F 10/09/17 15:47 Pulse Rate 96 10/09/17 15:47 Respiratory Rate 24 10/09/17 15:47 Blood Pressure 121/75 10/09/17 15:47 Pulse Oximetry 94 10/09/17 15:47 Height/Weight/BMI: Height 1.78 m Weight 102.5 kg Body Mass Index 32.4 - Constitutional Present: no acute distress, well developed, obese, disheveled - Routine HEENT Exam Head: Present: normocephalic, atraumatic Eye: Present: EOMI - Routine Respiratory Exam Present: rhonchi (Very faint sporadic rhonchi left base.). Absent: accessory muscle use, dyspnea - Routine Cardiovascular Exam Present: RRR, S1, S2 - Routine Abdominal Exam Present: soft, normoactive bowel sounds, non distended, non tender - Routine Extremities Exam Present: non tender - Routine Musculoskeletal Exam Musculoskeletal: Present: no clubbing or cyanosis, moving extremities well - Routine Skin Exam Present: intact, dry - Routine Neurological Exam Present: alert, moving all extremities - Routine Psychiatric Exam Present: depressed. Absent: normal affect, cooperative Results - Labs CBC & Chem 7: 10/07/17 08:53 10/03/17 08:29 Assessment and Plan (1) Alzheimer's dementia with behavioral disturbance Current visit: Yes Status: Acute Assessment and Plan: Impression Dementia with behaviors Hallucinations Paranoia Chronic atrial fibrillation Chronic anticoagulation with Pradaxa secondary to atrial fibrillation Hypertension Hyperlipidemia BPH Plan 10/09/17 PCP: Dr. Henrik Brown Patient continues to have significant behavior issues. Medication adjustment per psychiatry. Low grade fever yesterday- if persists, consider CXR. He does not appear acutely ill today. Continue current medication for BP and Atrial Fib. Both HR and BP is stable. Assess A1c, Lipid panel to meet core measures. Repeat basic labs in am. Resuscitation Status: Full Code - Physician Narrative Physician: Michelle Gomez MD Narrative: Date: 10/09/17 Time: 1720 I have independently evaluated and examined this patient. I reviewed the chart, the patient's history, and the OCCUPATIONAL HEALTH MANAGER/PA's documented findings as above. We discussed and formulated the assessment and plan as above with additions as below: Mayco was seen in the dining area playing cards. He reported having some discomfort that was like pleurisy pains which he compared to a snake sliding through the grass; he denied chest pain however and denied dyspnea. Unclear what the reference to pleurisy was. He reports that he has transient lightheadedness when he stands but after standing for about 5 seconds it's gone and he can go on about his business. He stood up abruptly to demonstrate this phenomenon to me but did not attempt to walk off. Cardiac rhythm is irregular, low-grade tachycardia at the time of my exam Respirations were nonlabored and airflow was good, abdomen benign Laboratory data reviewed-microcytic anemia, hemoglobin stable since admission; B -12 low normal. Add magnesium to morning labs due to chronic diuretic therapy and iron studies due to microcytosis. May benefit from addition of oral B-12 for low normal value. Hospital Course Summary Disclaimer: The visit summary below is not to be considered part of the above Progress Note. Hospital Course: Impression Dementia with behaviors Hallucinations Paranoia Chronic atrial fibrillation Hypertension Hyperlipidemia BPH Plan Agree with admission to the [facility] unit under the care of Dr. Guo for acute behaviors. Home medications reviewed. Continue on Cardizem, lisinopril, Maxide for treatment of hypertension and atrial fib. Continue on chronic anticoagulation, Pradaxa He may have regular diet Encourage patient to participate in unit activities and provide a safe environment The hospitalists services will continue to follow patient during her hospitalization. At time of discharge medical care will return to PCP Dr Henrik Brown 10/03/17 Psych: Continue home medications, monitor behavior. 10/04/17 Psych: Will start Depakote DR 500mg PO daily with dinner to [employer] sundowning, irritability as patient seems to be sensitive to neuroleptics; monitor response. 10/05/17 Psych: Will add Depakote 250mg PO q AM with breakfast and continue 500mg PO at dinner. Will schedule Ativan 1mg PO BID at 1800, 2100. Although patient is unsteady with this medication, we need to be able to control his agitation to protect the safety of staff until Depakote is titrated higher. He is quite sensitive to neuroleptics, which seem to increase agitation. 10/06/17 Psych: Continue current care while Depakote approaches steady-state; will then try to decrease Ativan once calmer. 10/07/17 Psych: Will increase Depakote DR to 250mg PO BID at 0800, 1200 and 500mg at 1800. Will decrease Ativan to 0.5mg PO at 1800 and continue 1mg PO q HS. He still has additional PRNs available for agitation. 10/08/17 Doing better. Continues to have VH but no behaviors or PRN's. Continue current care 10/09/17 Psych- Remains irritable at times. Continue current care Plan 10/09/17 PCP: Dr. Henrik Brown Patient continues to have significant behavior issues. Medication adjustment per psychiatry. Low grade fever yesterday- if persists, consider CXR. He does not appear acutely ill today. Continue current medication for BP and Atrial Fib. Both HR and BP is stable. Assess A1c, Lipid panel to meet core measures. Repeat basic labs in am.
[2017-10-09] MEDS: DIVALPROEX 500 MG TABLET PO SCH (17:29)
[2017-10-09] MEDS: LORazepam 0.5 MG TABLET PO PRN (17:33)
[2017-10-09] MEDS: LORazepam 1 MG TABLET PO SCH (20:07)
[2017-10-10] MEDS: LORazepam INTENSOL 1mg/0.5ml ORAL LIQUID PO PRN (04:23)
--- NOTE | 2017-10-10 08:19 | Progress Note ---
Progress Note: Patient's meds need crushed. Pradaxa cannot be crushed. Switch to Eliquis.
[2017-10-10] MEDS: QUETIAPINE 50 MG TABLET PO SCH ×3 (08:38→21:01)
[2017-10-10] MEDS: FENOFIBRATE 160 MG TABLET PO SCH (08:38)
[2017-10-10] MEDS: DIVALPROEX SPRINKLE 125 MG CAPSULE PO SCH ×2 (08:38→11:53)
[2017-10-10] MEDS: LISINOPRIL 20 MG TABLET PO SCH ×2 (08:45→21:01)
[2017-10-10] MEDS: APIXABAN 5 MG TABLET PO SCH ×2 (08:45→21:01)
[2017-10-10] MEDS: SERTRALINE 50 MG TABLET PO SCH (08:46)
[2017-10-10] MEDS: MULTI-VITAMIN PLAIN TABLET PO SCH (08:46)
[2017-10-10] MEDS: TRIAMTERENE/HCTZ 37.5 MG-25 MG TABLET PO SCH (08:47)
--- NOTE | 2017-10-10 13:18 | Neuropsych Progress Note ---
[facility] Subjective Date: 10/10/17 - Sujective/Severity of Illness Medications: Acetaminophen (Tylenol) 325 - 650 mg PO Q5H PRN PRN Reason: Discomfort Last Admin: 10/08/17 20:52 Dose: 650 mg Apixaban (Eliquis) 5 mg PO BID [facility] Last Admin: 10/10/17 08:45 Dose: 5 mg Diltiazem HCl (Cardizem Cd 180 Mg) 180 mg PO DAILY [facility] Last Admin: 10/10/17 08:46 Dose: 180 mg Divalproex Sodium (Depakote Sprinkle) 250 mg PO 0800,1200 [facility] Last Admin: 10/10/17 11:53 Dose: 250 mg Divalproex Sodium (Depakote Sprinkle) 500 mg PO 1800 [facility] Fenofibrate (Lofibra) 160 mg PO WB [facility] Last Admin: 10/10/17 08:38 Dose: 160 mg Lisinopril (Prinivil) 20 mg PO BID [facility] Last Admin: 10/10/17 08:45 Dose: 20 mg Lorazepam (Ativan) 1 mg PO Q6H PRN PRN Reason: Extreme agitation Last Admin: 10/09/17 17:33 Dose: 1 mg Lorazepam (Ativan Inj) 1 mg IM Q6H PRN PRN Reason: Extreme agitation Last Admin: 10/05/17 02:40 Dose: 1 mg Lorazepam (Ativan Intensol) 1 mg PO Q6H PRN Last Admin: 10/10/17 04:23 Dose: 1 mg Lorazepam (Ativan) 1 mg PO 21 [facility] Last Admin: 10/09/17 20:07 Dose: 1 mg Multivitamins (Theragran) 1 tab PO DAILY [facility] Last Admin: 10/10/17 08:46 Dose: 1 tab Quetiapine Fumarate (Seroquel) 50 mg PO TID [facility] Last Admin: 10/10/17 08:38 Dose: 50 mg Sertraline HCl (Zoloft) 50 mg PO DAILY [facility] Last Admin: 10/10/17 08:46 Dose: 50 mg Triamterene/HCTZ (Maxzide-25 Eqv) 0.5 tab PO DAILY [facility] Last Admin: 10/10/17 08:47 Dose: 0.5 tab Subjective: Patient seen and chart reviewed. Case discussed with treatment team. On interview, patient is pleasant though confused, and actively hallucinating ( non-distressing) throughout the interview. He is oriented to self only. He reports that he feels well physically but would like to get home. Patient denies any SI,or HI. Patient denies any adverse side effects related to psychotropic medications. Nursing staff report patient continues to have mood lability, requiring multiple PRNs in the past 24 hours. He can be aggressive with staff at times. Massage is helpful in calming him. Patient has been adherent with medications. Patient slept 5+ hours overnight. VSS. Patient is eating well. Start Time: 09:00 Stop Time: 09:20 Mental Status Exam Vitals: Last Vital Signs Temp 97.4 F 10/10/17 08:00 Pulse 90 10/10/17 08:00 Resp 20 10/10/17 08:00 BP 136/86 10/10/17 08:00 Pulse Ox 91 10/10/17 08:00 Height: 1.78 m Weight: 102.5 kg - Mental Status Exam Muscle Strength/Tone: Normal Dressing: Casual Grooming: Fair Attitude: Cooperative (improving, some tenseness/irritability at times) Motor Activity: Retardation Eye Contact: Good Speech: Slowed Volume: Normal Rhythm: Appropriate Rhythm Orientation: Disoriented to time, Disoriented to situation, Oriented to person, Oriented to place Mood: Neutral (labile affect) Rate of Thoughts: Delayed Thought Organization: Confused Associations: Illogical (at times) Abstract Reasoning: Poor abstract reasoning Thought Content: Ruminations (about being in hospital), Paranoia (intermittent) Perception/Psychotic: Psychotic Current Hallucinations: Visual (frequent, vivid), Tactile Language: Naming Intact (though has some expressive aphasia) Fund of Knowledge: Other (Decreased from premorbid baseline) Memory: Poor-recent Suicidal Ideation: Denies Homicidal Ideation: Denies Insight: Impaired Judgement: Impaired Impulse Control: Poor - Laboratory Result Diagrams: 10/07/17 08:53 10/03/17 08:29 Assessment and Plan (1) Psychosis Qualifiers: Psychosis type: unspecified psychosis type Qualified Code(s): F29 - Unspecified psychosis not due to a substance or known physiological condition Current visit: Yes Status: Acute (2) Major neurocognitive disorder Problem details: Moderate, with behavioral disturbance Etiology: Lewy body dementia vs. frontotemporal vs. mixed Other medical problems: Chronic atrial fibrillation Hypertension Hyperlipidemia BPH Current visit: Yes Status: Acute Plan for VPA and ammonia level in the AM; adjust Depakote accordingly. Estimated Total Length of Stay (Days): 10 Hospital Course Summary Disclaimer: The visit summary below is not to be considered part of the above Progress Note. Hospital Course: Impression Dementia with behaviors Hallucinations Paranoia Chronic atrial fibrillation Hypertension Hyperlipidemia BPH Plan Agree with admission to the [facility] unit under the care of Dr. Guo for acute behaviors. Home medications reviewed. Continue on Cardizem, lisinopril, Maxide for treatment of hypertension and atrial fib. Continue on chronic anticoagulation, Pradaxa He may have regular diet Encourage patient to participate in unit activities and provide a safe environment The hospitalists services will continue to follow patient during her hospitalization. At time of discharge medical care will return to PCP Dr Henrik Brown 10/03/17 Psych: Continue home medications, monitor behavior. 10/04/17 Psych: Will start Depakote DR 500mg PO daily with dinner to [employer] owning, irritability as patient seems to be sensitive to neuroleptics; monitor response. 10/05/17 Psych: Will add Depakote 250mg PO q AM with breakfast and continue 500mg PO at dinner. Will schedule Ativan 1mg PO BID at 1800, 2100. Although patient is unsteady with this medication, we need to be able to control his agitation to protect the safety of staff until Depakote is titrated higher. He is quite sensitive to neuroleptics, which seem to increase agitation. 10/06/17 Psych: Continue current care while Depakote approaches steady-state; will then try to decrease Ativan once calmer. 10/07/17 Psych: Will increase Depakote DR to 250mg PO BID at 0800, 1200 and 500mg at 1800. Will decrease Ativan to 0.5mg PO at 1800 and continue 1mg PO q HS. He still has additional PRNs available for agitation. 10/08/17 Doing better. Continues to have VH but no behaviors or PRN's. Continue current care 10/09/17 Psych- Remains irritable at times. Continue current care Plan 10/09/17 PCP: Dr. Henrik Brown Patient continues to have significant behavior issues. Medication adjustment per psychiatry. Low grade fever yesterday- if persists, consider CXR. He does not appear acutely ill today. Continue current medication for BP and Atrial Fib. Both HR and BP is stable. Assess A1c, Lipid panel to meet core measures. Repeat basic labs in am. 10/10/17 Psych: Plan for CBC, VPA and ammonia level in the AM; adjust Depakote accordingly.
[2017-10-10] MEDS ORDERED: DIVALPROEX SPRINKLE 125 MG CAPSULE PO SCH (18:00)
[2017-10-10] MEDS: LORazepam 1 MG TABLET PO SCH (21:01)
[2017-10-11] MEDS: FENOFIBRATE 160 MG TABLET PO SCH (08:31)
[2017-10-11] MEDS: APIXABAN 5 MG TABLET PO SCH ×3 (08:31→21:20)
[2017-10-11] MEDS: DIVALPROEX SPRINKLE 125 MG CAPSULE PO SCH ×2 (08:31→17:40)
[2017-10-11] MEDS: QUETIAPINE 50 MG TABLET PO SCH ×3 (08:32→21:21)
[2017-10-11] MEDS: SERTRALINE 50 MG TABLET PO SCH (08:32)
[2017-10-11] MEDS: MULTI-VITAMIN PLAIN TABLET PO SCH (08:32)
[2017-10-11] MEDS: TRIAMTERENE/HCTZ 37.5 MG-25 MG TABLET PO SCH (08:32)
[2017-10-11] MEDS: LISINOPRIL 20 MG TABLET PO SCH ×3 (08:32→21:20)
[2017-10-11] MEDS ORDERED: IOHEXOL 300mg/ml 50ml INJECTION ONE (10:13)
[2017-10-11] MEDS ORDERED: SALINE FLUSH 10ml SYRINGE ONE (10:13)
[2017-10-11] MEDS ORDERED: DIVALPROEX SPRINKLE 125 MG CAPSULE PO ONE (12:25)
[2017-10-11] MEDS: LORazepam 1 MG TABLET PO SCH ×2 (19:29→21:20)
[2017-10-12] MEDS: DIVALPROEX SPRINKLE 125 MG CAPSULE PO SCH ×3 (08:16→17:03)
[2017-10-12] MEDS: APIXABAN 5 MG TABLET PO SCH ×2 (08:17→20:42)
[2017-10-12] MEDS: FENOFIBRATE 160 MG TABLET PO SCH (08:17)
[2017-10-12] MEDS: MULTI-VITAMIN PLAIN TABLET PO SCH (08:19)
[2017-10-12] MEDS: LISINOPRIL 20 MG TABLET PO SCH ×2 (08:19→20:42)
[2017-10-12] MEDS: TRIAMTERENE/HCTZ 37.5 MG-25 MG TABLET PO SCH (08:20)
[2017-10-12] MEDS: SERTRALINE 50 MG TABLET PO SCH (08:20)
[2017-10-12] MEDS: QUETIAPINE 50 MG TABLET PO SCH ×3 (08:20→20:43)
--- NOTE | 2017-10-12 18:09 | Neuropsych Progress Note ---
[facility] Subjective Date: 10/13/17 - Sujective/Severity of Illness Medications: Acetaminophen (Tylenol) 325 - 650 mg PO Q5H PRN PRN Reason: Discomfort Last Admin: 10/08/17 20:52 Dose: 650 mg Apixaban (Eliquis) 5 mg PO BID [facility] Last Admin: 10/12/17 08:17 Dose: 5 mg Diltiazem HCl (Cardizem Cd 180 Mg) 180 mg PO DAILY [facility] Last Admin: 10/12/17 08:18 Dose: 180 mg Divalproex Sodium (Depakote Sprinkle) 500 mg PO 0800,1200 [facility] Last Admin: 10/12/17 12:03 Dose: 500 mg Divalproex Sodium (Depakote Sprinkle) 750 mg PO 1800 [facility] Last Admin: 10/12/17 17:03 Dose: 750 mg Fenofibrate (Lofibra) 160 mg PO WB [facility] Last Admin: 10/12/17 08:17 Dose: 160 mg Lisinopril (Prinivil) 20 mg PO BID [facility] Last Admin: 10/12/17 08:19 Dose: 20 mg Lorazepam (Ativan) 1 mg PO 21 [facility] Last Admin: 10/11/17 21:20 Dose: Not Given Lorazepam (Ativan) 0.5 mg PO Q6H PRN PRN Reason: Extreme agitation Lorazepam (Ativan Inj) 0.5 mg IM Q6H PRN PRN Reason: Extreme agitation Lorazepam (Ativan Intensol) 0.5 mg PO Q6H PRN Multivitamins (Theragran) 1 tab PO DAILY [facility] Last Admin: 10/12/17 08:19 Dose: 1 tab Quetiapine Fumarate (Seroquel) 50 mg PO TID [facility] Last Admin: 10/12/17 15:55 Dose: Not Given Sertraline HCl (Zoloft) 50 mg PO DAILY [facility] Last Admin: 10/12/17 08:20 Dose: 50 mg Triamterene/HCTZ (Maxzide-25 Eqv) 0.5 tab PO DAILY [facility] Last Admin: 10/12/17 08:20 Dose: 0.5 tab Subjective: Patient seen and chart reviewed. Case discussed with treatment team. On interview, patient is confused and somewhat labile, frequently exit-seeking and getting frustrated when the door doesn't work. He is dismissive of staff and attempts to distract him. 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 He continues to have frequent VH, mostly non- distressing. Patient denies any SI,or HI. Patient denies any adverse side effects related to psychotropic medications. Nursing staff report patient continues to have mood lability. He can be aggressive with staff at times. Massage is helpful in calming him but short- lived. Patient has been adherent with medications. We have held Seroquel today as that seems to decrease agitation. He was able to contribute some during group. Patient slept 9.5 hours overnight. VSS. Patient is eating well. Psychotropic PRNs required in past 24 hours: Ativan 0.5mg IM at 1925 last evening. Start Time: 09:00 Stop Time: :20 Mental Status Exam Vitals: Last Vital Signs Temp 99 F 10/12/17 16:00 Pulse 80 10/12/17 16:00 Resp 16 10/12/17 16:00 BP 125/89 10/12/17 16:00 Pulse Ox 93 10/12/17 16:00 Height: 1.78 m Weight: 102.5 kg - Mental Status Exam Muscle Strength/Tone: Normal Dressing: Casual Grooming: Fair Attitude: Combative (at times), Other (cooperation varies) Motor Activity: Retardation Eye Contact: Good Speech: Slowed Volume: Normal Rhythm: Appropriate Rhythm Orientation: Disoriented to time, Disoriented to situation, Oriented to person, Oriented to place Mood: Neutral (labile affect) Rate of Thoughts: Delayed Thought Organization: Confused Associations: Illogical (at times) Abstract Reasoning: Poor abstract reasoning Thought Content: Ruminations (about being in hospital), Paranoia (intermittent) Perception/Psychotic: Psychotic Current Hallucinations: Visual (frequent, vivid), Tactile Language: Naming Intact (though has some expressive aphasia) Fund of Knowledge: Other (Decreased from premorbid baseline) Memory: Poor-recent Suicidal Ideation: Denies Homicidal Ideation: Denies Insight: Impaired Judgement: Impaired Impulse Control: Poor - Laboratory Result Diagrams: 10/11/17 06:59 10/11/17 06:59 Laboratory Results - last 24 hr 10/11/17 06:59 Iron 39 L TIBC 418 % Saturation 9 L Assessment and Plan (1) Psychosis Qualifiers: Psychosis type: unspecified psychosis type Qualified Code(s): F29 - Unspecified psychosis not due to a substance or known physiological condition Current visit: Yes Status: Acute (2) Major neurocognitive disorder Problem details: Moderate, with behavioral disturbance Etiology: Lewy body dementia vs. frontotemporal vs. mixed Other medical problems: Chronic atrial fibrillation Hypertension Hyperlipidemia BPH Current visit: Yes Status: Acute Depakote DR increased on 10/12 to 500mg PO q AM, 500mg PO mid-day and 750mg PO q HS after VPA level drawn. Plan to hold Seroquel and monitor response while Depakote reaches new steady-state. Estimated Total Length of Stay (Days): 10 Hospital Course Summary Disclaimer: The visit summary below is not to be considered part of the above Progress Note. Hospital Course: Impression Dementia with behaviors Hallucinations Paranoia Chronic atrial fibrillation Hypertension Hyperlipidemia BPH Plan Agree with admission to the [facility] unit under the care of Dr. Guo for acute behaviors. Home medications reviewed. Continue on Cardizem, lisinopril, Maxide for treatment of hypertension and atrial fib. Continue on chronic anticoagulation, Pradaxa He may have regular diet Encourage patient to participate in unit activities and provide a safe environment The hospitalists services will continue to follow patient during her hospitalization. At time of discharge medical care will return to PCP Dr Henrik Brown 10/03/17 Psych: Continue home medications, monitor behavior. 10/04/17 Psych: Will start Depakote DR 500mg PO daily with dinner to [employer] owning, irritability as patient seems to be sensitive to neuroleptics; monitor response. 10/05/17 Psych: Will add Depakote 250mg PO q AM with breakfast and continue 500mg PO at dinner. Will schedule Ativan 1mg PO BID at 1800, 2100. Although patient is unsteady with this medication, we need to be able to control his agitation to protect the safety of staff until Depakote is titrated higher. He is quite sensitive to neuroleptics, which seem to increase agitation. 10/06/17 Psych: Continue current care while Depakote approaches steady-state; will then try to decrease Ativan once calmer. 10/07/17 Psych: Will increase Depakote DR to 250mg PO BID at 0800, 1200 and 500mg at 1800. Will decrease Ativan to 0.5mg PO at 1800 and continue 1mg PO q HS. He still has additional PRNs available for agitation. 10/08/17 Doing better. Continues to have VH but no behaviors or PRN's. Continue current care 10/09/17 Psych- Remains irritable at times. Continue current care Plan 10/09/17 PCP: Dr. Henrik Brown Patient continues to have significant behavior issues. Medication adjustment per psychiatry. Low grade fever yesterday- if persists, consider CXR. He does not appear acutely ill today. Continue current medication for BP and Atrial Fib. Both HR and BP is stable. Assess A1c, Lipid panel to meet core measures. Repeat basic labs in am. 10/10/17 Psych: Plan for CBC, VPA and ammonia level in the AM; adjust Depakote accordingly. 10/12/17 Psych: Depakote DR increased on 10/12 to 500mg PO q AM, 500mg PO mid-day and 750mg PO q HS after VPA level drawn. Plan to hold Seroquel and monitor response while Depakote reaches new steady-state. Monitor WBC to see if patient can even tolerate Depakote or another mood stabilizer is needed.
[2017-10-12] MEDS: LORazepam 1 MG TABLET PO SCH (20:42)
[2017-10-13] MEDS: LORazepam INTENSOL 1mg/0.5ml ORAL LIQUID PO PRN (05:20)
[2017-10-13] MEDS: TRIAMTERENE/HCTZ 37.5 MG-25 MG TABLET PO SCH (08:20)
[2017-10-13] MEDS: MULTI-VITAMIN PLAIN TABLET PO SCH (08:21)
[2017-10-13] MEDS: SERTRALINE 50 MG TABLET PO SCH (08:21)
[2017-10-13] MEDS: FENOFIBRATE 160 MG TABLET PO SCH (08:22)
[2017-10-13] MEDS: LISINOPRIL 20 MG TABLET PO SCH ×2 (08:22→19:14)
[2017-10-13] MEDS: APIXABAN 5 MG TABLET PO SCH ×2 (08:22→19:14)
[2017-10-13] MEDS: DIVALPROEX SPRINKLE 125 MG CAPSULE PO SCH ×3 (08:25→17:04)
[2017-10-13] MEDS: QUETIAPINE 50 MG TABLET PO SCH ×2 (08:30→19:15)
--- NOTE | 2017-10-13 12:01 | Neuropsych Progress Note ---
[facility] Subjective Date: 10/13/17 - Sujective/Severity of Illness Medications: Acetaminophen (Tylenol) 325 - 650 mg PO Q5H PRN PRN Reason: Discomfort Last Admin: 10/08/17 20:52 Dose: 650 mg Apixaban (Eliquis) 5 mg PO BID [facility] Last Admin: 10/13/17 08:22 Dose: 5 mg Diltiazem HCl (Cardizem Cd 180 Mg) 180 mg PO DAILY [facility] Last Admin: 10/13/17 08:21 Dose: 180 mg Divalproex Sodium (Depakote Sprinkle) 500 mg PO 0800,1200 [facility] Last Admin: 10/13/17 11:53 Dose: 500 mg Divalproex Sodium (Depakote Sprinkle) 750 mg PO 1800 [facility] Last Admin: 10/12/17 17:03 Dose: 750 mg Fenofibrate (Lofibra) 160 mg PO WB [facility] Last Admin: 10/13/17 08:22 Dose: 160 mg Lisinopril (Prinivil) 20 mg PO BID [facility] Last Admin: 10/13/17 08:22 Dose: 20 mg Lorazepam (Ativan) 1 mg PO 21 [facility] Last Admin: 10/12/17 20:42 Dose: 1 mg Lorazepam (Ativan) 0.5 mg PO Q6H PRN PRN Reason: Extreme agitation Lorazepam (Ativan Inj) 0.5 mg IM Q6H PRN PRN Reason: Extreme agitation Lorazepam (Ativan Intensol) 0.5 mg PO Q6H PRN Last Admin: 10/13/17 05:20 Dose: 0.5 mg Multivitamins (Theragran) 1 tab PO DAILY [facility] Last Admin: 10/13/17 08:21 Dose: 1 tab Quetiapine Fumarate (Seroquel) 50 mg PO TID [facility] Last Admin: 10/13/17 08:30 Dose: Not Given Sertraline HCl (Zoloft) 50 mg PO DAILY [facility] Last Admin: 10/13/17 08:21 Dose: 50 mg Triamterene/HCTZ (Maxzide-25 Eqv) 0.5 tab PO DAILY [facility] Last Admin: 10/13/17 08:20 Dose: 0.5 tab Subjective: Patient seen and chart reviewed. Case discussed with treatment team. On interview, patient is confused and somewhat labile, frequently exit-seeking and getting frustrated when the door doesn't work. He is dismissive of staff and attempts to distract him. 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 He continues to have frequent VH, mostly non- distressing though they did cause him to be more distressed overnight (did not get Seroquel last evening as it has been held). Patient denies any SI,or HI. Patient denies any adverse side effects related to psychotropic medications. Nursing staff report patient continues to have mood lability. He can be aggressive with staff at times. Massage is helpful in calming him but short- lived. Patient has been adherent with medications. Patient slept 7.5 hours overnight. VSS. Patient is eating well. Psychotropic PRNs required in past 24 hours: Ativan Intensol 0.5mg at 0520 this morning for mood lability. Start Time: 13:00 Stop Time: 13:20 Mental Status Exam Vitals: Last Vital Signs Temp 98.2 F 10/13/17 08:00 Pulse 92 10/13/17 08:00 Resp 16 10/13/17 08:00 BP 127/83 10/13/17 08:00 Pulse Ox 93 10/13/17 08:00 Height: 1.78 m Weight: 102.5 kg - Mental Status Exam Muscle Strength/Tone: Normal Dressing: Casual Grooming: Fair Attitude: Combative (at times), Other (cooperation varies) Motor Activity: Retardation Eye Contact: Good Speech: Slowed Volume: Normal Rhythm: Appropriate Rhythm Orientation: Disoriented to time, Disoriented to situation, Oriented to person, Oriented to place Mood: Neutral (labile affect) Rate of Thoughts: Delayed Thought Organization: Confused Associations: Illogical (at times) Abstract Reasoning: Poor abstract reasoning Thought Content: Ruminations (about being in hospital), Paranoia (intermittent) Perception/Psychotic: Psychotic Current Hallucinations: Visual (frequent, vivid), Tactile Language: Naming Intact (though has some expressive aphasia) Fund of Knowledge: Other (Decreased from premorbid baseline) Memory: Poor-recent Suicidal Ideation: Denies Homicidal Ideation: Denies Insight: Impaired Judgement: Impaired Impulse Control: Poor - Laboratory Result Diagrams: 10/11/17 06:59 10/11/17 06:59 Assessment and Plan (1) Psychosis Qualifiers: Psychosis type: unspecified psychosis type Qualified Code(s): F29 - Unspecified psychosis not due to a substance or known physiological condition Current visit: Yes Status: Acute (2) Major neurocognitive disorder Problem details: Moderate, with behavioral disturbance Etiology: Lewy body dementia vs. frontotemporal vs. mixed Other medical problems: Chronic atrial fibrillation Hypertension Hyperlipidemia BPH Current visit: Yes Status: Acute Plan to restart Seroquel 75mg PO q HS; continue current dose of Depakote. Plan to check level in AM on 10/15 as well as CBC to monitor blood cell counts relative to Depakote. Estimated Total Length of Stay (Days): 10 Hospital Course Summary Disclaimer: The visit summary below is not to be considered part of the above Progress Note. Hospital Course: Impression Dementia with behaviors Hallucinations Paranoia Chronic atrial fibrillation Hypertension Hyperlipidemia BPH Plan Agree with admission to the [facility] unit under the care of Dr. Guo for acute behaviors. Home medications reviewed. Continue on Cardizem, lisinopril, Maxide for treatment of hypertension and atrial fib. Continue on chronic anticoagulation, Pradaxa He may have regular diet Encourage patient to participate in unit activities and provide a safe environment The hospitalists services will continue to follow patient during her hospitalization. At time of discharge medical care will return to PCP Dr Henrik Brown 10/03/17 Psych: Continue home medications, monitor behavior. 10/04/17 Psych: Will start Depakote DR 500mg PO daily with dinner to [employer] owning, irritability as patient seems to be sensitive to neuroleptics; monitor response. 10/05/17 Psych: Will add Depakote 250mg PO q AM with breakfast and continue 500mg PO at dinner. Will schedule Ativan 1mg PO BID at 1800, 2100. Although patient is unsteady with this medication, we need to be able to control his agitation to protect the safety of staff until Depakote is titrated higher. He is quite sensitive to neuroleptics, which seem to increase agitation. 10/06/17 Psych: Continue current care while Depakote approaches steady-state; will then try to decrease Ativan once calmer. 10/07/17 Psych: Will increase Depakote DR to 250mg PO BID at 0800, 1200 and 500mg at 1800. Will decrease Ativan to 0.5mg PO at 1800 and continue 1mg PO q HS. He still has additional PRNs available for agitation. 10/08/17 Doing better. Continues to have VH but no behaviors or PRN's. Continue current care 10/09/17 Psych- Remains irritable at times. Continue current care Plan 10/09/17 PCP: Dr. Henrik Brown Patient continues to have significant behavior issues. Medication adjustment per psychiatry. Low grade fever yesterday- if persists, consider CXR. He does not appear acutely ill today. Continue current medication for BP and Atrial Fib. Both HR and BP is stable. Assess A1c, Lipid panel to meet core measures. Repeat basic labs in am. 10/10/17 Psych: Plan for CBC, VPA and ammonia level in the AM; adjust Depakote accordingly. 10/12/17 Psych: Depakote DR increased on 10/12 to 500mg PO q AM, 500mg PO mid-day and 750mg PO q HS after VPA level drawn. Plan to hold Seroquel and monitor response while Depakote reaches new steady-state. Monitor WBC to see if patient can even tolerate Depakote or another mood stabilizer is needed. 10/13/17 Psych: Plan to restart Seroquel 75mg PO q HS; continue current dose of Depakote. Plan to check level in AM on 10/15 as well as CBC to monitor blood cell counts relative to Depakote.
[2017-10-13] MEDS: LORazepam 1 MG TABLET PO SCH (19:14)
[2017-10-14] MEDS: APIXABAN 5 MG TABLET PO SCH ×5 (01:18→23:25)
[2017-10-14] MEDS: LISINOPRIL 20 MG TABLET PO SCH ×5 (01:18→23:25)
[2017-10-14] MEDS: LORazepam 1 MG TABLET PO SCH ×3 (01:18→23:25)
[2017-10-14] MEDS: QUETIAPINE 50 MG TABLET PO SCH ×3 (01:19→23:26)
[2017-10-14] MEDS: SERTRALINE 50 MG TABLET PO SCH ×2 (07:39→09:17)
[2017-10-14] MEDS: TRIAMTERENE/HCTZ 37.5 MG-25 MG TABLET PO SCH ×2 (07:40→09:17)
[2017-10-14] MEDS: MULTI-VITAMIN PLAIN TABLET PO SCH ×2 (07:40→09:17)
[2017-10-14] MEDS: FENOFIBRATE 160 MG TABLET PO SCH (07:41)
[2017-10-14] MEDS: DIVALPROEX SPRINKLE 125 MG CAPSULE PO SCH ×3 (07:41→17:03)
[2017-10-14] MEDS: LORazepam INTENSOL 1mg/0.5ml ORAL LIQUID PO PRN (13:17)
--- NOTE | 2017-10-14 13:24 | Neuropsych Progress Note ---
[facility] Subjective Date: 10/14/17 - Sujective/Severity of Illness Medications: Acetaminophen (Tylenol) 325 - 650 mg PO Q5H PRN PRN Reason: Discomfort Last Admin: 10/08/17 20:52 Dose: 650 mg Apixaban (Eliquis) 5 mg PO BID [facility] Last Admin: 10/14/17 09:17 Dose: Not Given Diltiazem HCl (Cardizem Cd 180 Mg) 180 mg PO DAILY [facility] [place] Last Admin: 10/14/17 09:17 Dose: Not Given Divalproex Sodium (Depakote Sprinkle) 500 mg PO 0800,1200 [facility] [place] Last Admin: 10/14/17 12:34 Dose: 500 mg Divalproex Sodium (Depakote Sprinkle) 750 mg PO 1800 [facility] [place] Last Admin: 10/13/17 17:04 Dose: 750 mg Fenofibrate (Lofibra) 160 mg PO WB [facility] [place] Last Admin: 10/14/17 07:41 Dose: 160 mg Lisinopril (Prinivil) 20 mg PO BID [facility] [place] Last Admin: 10/14/17 09:17 Dose: Not Given Lorazepam (Ativan) 1 mg PO 21 [facility] [place] Last Admin: 10/14/17 01:18 Dose: Not Given Lorazepam (Ativan) 0.5 mg PO Q6H PRN PRN Reason: Extreme agitation Lorazepam (Ativan Inj) 0.5 mg IM Q6H PRN PRN Reason: Extreme agitation Lorazepam (Ativan Intensol) 0.5 mg PO Q6H PRN Last Admin: 10/14/17 13:17 Dose: 0.5 mg Multivitamins (Theragran) 1 tab PO DAILY [facility] [place] Last Admin: 10/14/17 09:17 Dose: Not Given Quetiapine Fumarate (Seroquel) 75 mg PO HS [facility] [place] Last Admin: 10/14/17 01:19 Dose: Not Given Sertraline HCl (Zoloft) 50 mg PO DAILY [facility] [place] Last Admin: 10/14/17 09:17 Dose: Not Given Triamterene/HCTZ (Maxzide-25 Eqv) 0.5 tab PO DAILY [facility] [place] Last Admin: 10/14/17 09:17 Dose: Not Given Subjective: Patient seen and chart reviewed. Case discussed with treatment team. On interview, patient is confused and continues to be labile, but improved overall. 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 He continues to have frequent VH, mostly non-distressing though they did cause him to be more distressed overnight (did not get Seroquel last evening as it has been held). Patient denies any SI,or HI. Patient denies any adverse side effects related to psychotropic medications. Nursing staff report patient continues to have mood lability. He can be aggressive with staff at times. Massage is helpful in calming him but short- lived. Patient has been adherent with medications. Patient slept 9.5 hours overnight. VSS. Patient seems to have more difficulty eating at times (probably when more confused) than others so appetite is variable. Psychotropic PRNs required in past 24 hours: Ativan Intensol 0.5mg x 1. Start Time: 09:00 Stop Time: 09:20 Mental Status Exam Vitals: Last Vital Signs Temp 97.5 F 10/14/17 08:00 Pulse 85 10/14/17 08:10 Resp 22 10/14/17 08:00 BP 127/81 10/14/17 08:00 Pulse Ox 96 10/14/17 08:10 Height: 1.78 m Weight: 102.5 kg - Mental Status Exam Muscle Strength/Tone: Normal Dressing: Casual Grooming: Fair Attitude: Combative (at times, decreasing overall), Other (cooperation varies) Motor Activity: Retardation Eye Contact: Good Speech: Slowed Volume: Normal Rhythm: Appropriate Rhythm Orientation: Disoriented to time, Disoriented to situation, Oriented to person, Oriented to place Mood: Neutral (labile affect, improving overall) Rate of Thoughts: Delayed Thought Organization: Confused Associations: Illogical (at times) Abstract Reasoning: Poor abstract reasoning Thought Content: Other (confusion) Perception/Psychotic: Psychotic Current Hallucinations: Visual (frequent, vivid), Tactile Language: Naming Intact (though has some expressive aphasia) Fund of Knowledge: Other (Decreased from premorbid baseline) Memory: Poor-recent Suicidal Ideation: Denies Homicidal Ideation: Denies Insight: Impaired Judgement: Impaired Impulse Control: Poor (improved from admission) - Laboratory Result Diagrams: 10/11/17 06:59 10/11/17 06:59 Assessment and Plan (1) Psychosis Qualifiers: Psychosis type: unspecified psychosis type Qualified Code(s): F29 - Unspecified psychosis not due to a substance or known physiological condition Current visit: Yes Status: Acute (2) Major neurocognitive disorder Problem details: Moderate, with behavioral disturbance Etiology: Lewy body dementia vs. frontotemporal vs. mixed Other medical problems: Chronic atrial fibrillation Hypertension Hyperlipidemia BPH Current visit: Yes Status: Acute Plan to check VPA level in AM, as well as CBC and CMP. May adjust Depakote or have to look for other options if WBC continues to drop. Estimated Total Length of Stay (Days): 10 Hospital Course Summary Disclaimer: The visit summary below is not to be considered part of the above Progress Note. Hospital Course: Impression Dementia with behaviors Hallucinations Paranoia Chronic atrial fibrillation Hypertension Hyperlipidemia BPH Plan Agree with admission to the [facility] unit under the care of Dr. Guo for acute behaviors. Home medications reviewed. Continue on Cardizem, lisinopril, Maxide for treatment of hypertension and atrial fib. Continue on chronic anticoagulation, Pradaxa He may have regular diet Encourage patient to participate in unit activities and provide a safe environment The hospitalists services will continue to follow patient during her hospitalization. At time of discharge medical care will return to PCP Dr Henrik Brown 10/03/17 Psych: Continue home medications, monitor behavior. 10/04/17 Psych: Will start Depakote DR 500mg PO daily with dinner to target sundowning, irritability as patient seems to be sensitive to neuroleptics; monitor response. 10/05/17 Psych: Will add Depakote 250mg PO q AM with breakfast and continue 500mg PO at dinner. Will schedule Ativan 1mg PO BID at 1800, 2100. Although patient is unsteady with this medication, we need to be able to control his agitation to protect the safety of staff until Depakote is titrated higher. He is quite sensitive to neuroleptics, which seem to increase agitation. 10/06/17 Psych: Continue current care while Depakote approaches steady-state; will then try to decrease Ativan once calmer. 10/07/17 Psych: Will increase Depakote DR to 250mg PO BID at 0800, 1200 and 500mg at 1800. Will decrease Ativan to 0.5mg PO at 1800 and continue 1mg PO q HS. He still has additional PRNs available for agitation. 10/08/17 Doing better. Continues to have VH but no behaviors or PRN's. Continue current care 10/09/17 Psych- Remains irritable at times. Continue current care Plan 10/09/17 PCP: Dr. Henrik Brown Patient continues to have significant behavior issues. Medication adjustment per psychiatry. Low grade fever yesterday- if persists, consider CXR. He does not appear acutely ill today. Continue current medication for BP and Atrial Fib. Both HR and BP is stable. Assess A1c, Lipid panel to meet core measures. Repeat basic labs in am. 10/10/17 Psych: Plan for CBC, VPA and ammonia level in the AM; adjust Depakote accordingly. 10/12/17 Psych: Depakote DR increased on 10/12 to 500mg PO q AM, 500mg PO mid-day and 750mg PO q HS after VPA level drawn. Plan to hold Seroquel and monitor response while Depakote reaches new steady-state. Monitor WBC to see if patient can even tolerate Depakote or another mood stabilizer is needed. 10/13/17 Psych: Plan to restart Seroquel 75mg PO q HS; continue current dose of Depakote. Plan to check level in AM on 10/15 as well as CBC to monitor blood cell counts relative to Depakote. 10/14/17 Psych: Plan to check VPA level in AM, as well as CBC and CMP. May adjust Depakote or have to look for other options if WBC continues to drop.
--- NOTE | 2017-10-14 16:28 | Progress Note ---
- Date 10/14/17 Subjective: Patient is seen sitting in the day room while "fishing." He is using the trash can as his "pond." He speaks nonsensically but allows me to perform exam. Staff report he has had no significant behaviors this am. He was running a fever yesterday. No cough, but nurse noted he de-satted to 88 with activity earlier (but recovered quickly when resting.) Objective Vital signs: Temperature 97.5 F 10/14/17 08:00 Pulse Rate 85 10/14/17 08:10 Respiratory Rate 22 10/14/17 08:00 Blood Pressure 127/81 10/14/17 08:00 Pulse Oximetry 96 10/14/17 08:10 Height/Weight/BMI: Height 1.78 m Weight 102.5 kg Body Mass Index 32.4 - Constitutional Present: no acute distress, well nourished, well developed - Routine HEENT Exam Head: Present: normocephalic, atraumatic - Routine Respiratory Exam Present: decreased breath sounds, crackles (RLL). Absent: wheezes - Routine Cardiovascular Exam Present: no murmur, irregular rhythm - Routine Abdominal Exam Present: soft, non distended, non tender - Routine Extremities Exam Present: no edema, normal capillary refill - Routine Skin Exam Present: dry, warm - Routine Neurological Exam Present: alert. Absent: oriented X3 - Routine Lymphatic Exam Lymphatic: Absent: adenopathy - Routine Psychiatric Exam Present: cooperative. Absent: normal thought process Results - Labs CBC & Chem 7: 10/11/17 06:59 10/11/17 06:59 Assessment and Plan (1) Alzheimer's dementia with behavioral disturbance Current visit: Yes Status: Acute Assessment and Plan: Impression Dementia with behaviors Fever - low grade - not POA Hallucinations Paranoia Chronic atrial fibrillation Chronic anticoagulation with Pradaxa secondary to atrial fibrillation Hypertension Hyperlipidemia BPH Plan Given his low grade fever yesterday and de-satting to upper 80's with activity, will check CXR and labs. He does not appear ill. VSS's, nurses notes, labs and psych notes reviewed. Await labs and xray, otherwise, no changes. - Physician Narrative Narrative: Date: 10/14/17 Time: 1621 Hospital Course Summary Disclaimer: The visit summary below is not to be considered part of the above Progress Note. Hospital Course: Impression Dementia with behaviors Hallucinations Paranoia Chronic atrial fibrillation Hypertension Hyperlipidemia BPH Plan Agree with admission to the [facility] unit under the care of Dr. Guo for acute behaviors. Home medications reviewed. Continue on Cardizem, lisinopril, Maxide for treatment of hypertension and atrial fib. Continue on chronic anticoagulation, Pradaxa He may have regular diet Encourage patient to participate in unit activities and provide a safe environment The hospitalists services will continue to follow patient during her hospitalization. At time of discharge medical care will return to PCP Dr Henrik Brown 10/03/17 Psych: Continue home medications, monitor behavior. 10/04/17 Psych: Will start Depakote DR 500mg PO daily with dinner to target own, irritability as patient seems to be sensitive to neuroleptics; monitor response. 10/05/17 Psych: Will add Depakote 250mg PO q AM with breakfast and continue 500mg PO at dinner. Will schedule Ativan 1mg PO BID at 1800, 2100. Although patient is unsteady with this medication, we need to be able to control his agitation to protect the safety of staff until Depakote is titrated higher. He is quite sensitive to neuroleptics, which seem to increase agitation. 10/06/17 Psych: Continue current care while Depakote approaches steady-state; will then try to decrease Ativan once calmer. 10/07/17 Psych: Will increase Depakote DR to 250mg PO BID at 0800, 1200 and 500mg at 1800. Will decrease Ativan to 0.5mg PO at 1800 and continue 1mg PO q HS. He still has additional PRNs available for agitation. 10/08/17 Doing better. Continues to have VH but no behaviors or PRN's. Continue current care 10/09/17 Psych- Remains irritable at times. Continue current care Plan 10/09/17 PCP: Dr. Henrik Brown Patient continues to have significant behavior issues. Medication adjustment per psychiatry. Low grade fever yesterday- if persists, consider CXR. He does not appear acutely ill today. Continue current medication for BP and Atrial Fib. Both HR and BP is stable. Assess A1c, Lipid panel to meet core measures. Repeat basic labs in am. 10/10/17 Psych: Plan for CBC, VPA and ammonia level in the AM; adjust Depakote accordingly. 10/12/17 Psych: Depakote DR increased on 10/12 to 500mg PO q AM, 500mg PO mid-day and 750mg PO q HS after VPA level drawn. Plan to hold Seroquel and monitor response while Depakote reaches new steady-state. Monitor WBC to see if patient can even tolerate Depakote or another mood stabilizer is needed. 10/13/17 Psych: Plan to restart Seroquel 75mg PO q HS; continue current dose of Depakote. Plan to check level in AM on 10/15 as well as CBC to monitor blood cell counts relative to Depakote. 10/14/17 Psych: Plan to check VPA level in AM, as well as CBC and CMP. May adjust Depakote or have to look for other options if WBC continues to drop.
[2017-10-15] MEDS: MULTI-VITAMIN PLAIN TABLET PO SCH (08:01)
[2017-10-15] MEDS: TRIAMTERENE/HCTZ 37.5 MG-25 MG TABLET PO SCH (08:01)
[2017-10-15] MEDS: FENOFIBRATE 160 MG TABLET PO SCH (08:02)
[2017-10-15] MEDS: SERTRALINE 50 MG TABLET PO SCH (08:02)
[2017-10-15] MEDS: LISINOPRIL 20 MG TABLET PO SCH ×2 (08:02→20:20)
[2017-10-15] MEDS: APIXABAN 5 MG TABLET PO SCH ×2 (08:02→20:21)
[2017-10-15] MEDS: DIVALPROEX SPRINKLE 125 MG CAPSULE PO SCH ×3 (08:02→17:35)
--- NOTE | 2017-10-15 09:32 | Neuropsych Progress Note ---
[facility] Subjective Date: 10/15/17 - Sujective/Severity of Illness Medications: Acetaminophen (Tylenol) 325 - 650 mg PO Q5H PRN PRN Reason: Discomfort Last Admin: 10/08/17 20:52 Dose: 650 mg Apixaban (Eliquis) 5 mg PO BID [facility] Last Admin: 10/15/17 08:02 Dose: 5 mg Diltiazem HCl (Cardizem Cd 180 Mg) 180 mg PO DAILY [facility] Last Admin: 10/15/17 08:01 Dose: 180 mg Divalproex Sodium (Depakote Sprinkle) 500 mg PO 0800,1200 [facility] Last Admin: 10/15/17 08:02 Dose: 500 mg Divalproex Sodium (Depakote Sprinkle) 750 mg PO 1800 [facility] Last Admin: 10/14/17 17:03 Dose: 750 mg Fenofibrate (Lofibra) 160 mg PO WB [facility] Last Admin: 10/15/17 08:02 Dose: 160 mg Lisinopril (Prinivil) 20 mg PO BID [facility] Last Admin: 10/15/17 08:02 Dose: 20 mg Lorazepam (Ativan) 1 mg PO 21 [facility] Last Admin: 10/14/17 23:25 Dose: Not Given Lorazepam (Ativan) 0.5 mg PO Q6H PRN PRN Reason: Extreme agitation Lorazepam (Ativan Inj) 0.5 mg IM Q6H PRN PRN Reason: Extreme agitation Lorazepam (Ativan Intensol) 0.5 mg PO Q6H PRN Last Admin: 10/14/17 13:17 Dose: 0.5 mg Multivitamins (Theragran) 1 tab PO DAILY [facility] Last Admin: 10/15/17 08:01 Dose: 1 tab Quetiapine Fumarate (Seroquel) 75 mg PO HS [facility] Last Admin: 10/14/17 23:26 Dose: Not Given Sertraline HCl (Zoloft) 50 mg PO DAILY [facility] Last Admin: 10/15/17 08:02 Dose: 50 mg Triamterene/HCTZ (Maxzide-25 Eqv) 0.5 tab PO DAILY [facility] Last Admin: 10/15/17 08:01 Dose: 0.5 tab Subjective: Patient seen and chart reviewed. Nursing reports pt is doing fairly well. Sleeping well and has a good appetite. Nursing reports he does appear to be responding to internal stimuli at times. On face to face the pt is pleasant but confused. He denies any pain. He is only oriented to self. Tolerating meds Start Time: 09:00 Stop Time: 09:15 Mental Status Exam Vitals: Last Vital Signs Temp 97.7 F 10/14/17 23:00 Pulse 93 10/14/17 23:00 Resp 20 10/14/17 23:00 BP 141/76 H 10/14/17 23:00 Pulse Ox 95 10/14/17 23:00 Height: 1.78 m Weight: 102.5 kg - Mental Status Exam Muscle Strength/Tone: Normal Dressing: Casual Grooming: Fair Attitude: Combative (at times, decreasing overall), Other (cooperation varies) Motor Activity: Retardation Eye Contact: Good Speech: Slowed Volume: Normal Rhythm: Appropriate Rhythm Orientation: Disoriented to time, Disoriented to situation, Oriented to person, Oriented to place Mood: Neutral (labile affect, improving overall) Rate of Thoughts: Delayed Thought Organization: Confused Associations: Illogical (at times) Abstract Reasoning: Poor abstract reasoning Thought Content: Other (confusion) Perception/Psychotic: Psychotic Current Hallucinations: Visual (frequent, vivid), Tactile Language: Naming Intact (though has some expressive aphasia) Fund of Knowledge: Other (Decreased from premorbid baseline) Memory: Poor-recent Suicidal Ideation: Denies Homicidal Ideation: Denies Insight: Impaired Judgement: Impaired Impulse Control: Poor (improved from admission) - Laboratory Result Diagrams: 10/15/17 06:44 10/15/17 06:44 Laboratory Results - last 24 hr 10/14/17 10/14/17 10/15/17 18:11 18:11 06:44 WBC 6.4 3.7 L D RBC 4.21 L 4.55 Hgb 9.9 L 10.5 L Hct 33.5 L 35.8 L MCV 79.6 L 78.7 L MCH 23.5 L 23.1 L MCHC 29.6 L 29.3 L RDW Std Deviation 52.5 H 53.0 H Plt Count 396 422 H MPV 9.3 L 9.2 L Immature Gran % (Auto) 0.3 0.0 Neut % (Auto) 67.7 H 61.8 Lymph % (Auto) 20.2 L 22.6 L Wagoner % (Auto) 11.3 H 14.2 H Eos % (Auto) 0.2 1.1 Baso % (Auto) 0.3 0.3 Neut # (Auto) 4.3 2.3 Lymph # (Auto) 1.3 0.8 L W[place]er # (Auto) 0.7 0.5 Eos # (Auto) 0.0 0.0 Baso # (Auto) 0.0 0.0 Abs Immat Gran (auto) 0.02 0.00 Turbidity < 20 Sodium 143 Potassium 4.5 Chloride 105 Carbon Dioxide 26 Anion Gap 12 BUN 36.0 H Creatinine 1.4 GFR Calculation 50 BUN/Creatinine Ratio 26 Glucose 103 Calculated Osmolality 283 H Calcium 9.2 Total Bilirubin Conjugated Bilirubin Unconjugated Bilirubin Icterus Index < 2 AST ALT Alkaline Phosphatase Total Protein Albumin Globulin Albumin/Globulin Ratio Specimen Hemolysis < 15 Valproic Acid 10/15/17 06:44 WBC RBC Hgb Hct MCV MCH MCHC RDW Std Deviation Plt Count MPV Immature Gran % (Auto) Neut % (Auto) Lymph % (Auto) Wagoner % (Auto) Eos % (Auto) Baso % (Auto) Neut # (Auto) Lymph # (Auto) Wagoner # (Auto) Eos # (Auto) Baso # (Auto) Abs Immat Gran (auto) Turbidity < 20 Sodium 146 H Potassium 3.8 Chloride 104 Carbon Dioxide 31 H Anion Gap 11 BUN 28.0 H Creatinine 1.2 D GFR Calculation 60 BUN/Creatinine Ratio 23 Glucose 86 Calculated Osmolality 286 H Calcium 9.0 Total Bilirubin 0.40 Conjugated Bilirubin 0.00 Unconjugated Bilirubin 0.10 Icterus Index < 2 AST 47 ALT 47 Alkaline Phosphatase 80 Total Protein 6.5 Albumin 3.7 Globulin 2.8 Albumin/Globulin Ratio 1.3 Specimen Hemolysis < 15 Valproic Acid 55.5 Assessment and Plan (1) Psychosis Qualifiers: Psychosis type: unspecified psychosis type Qualified Code(s): F29 - Unspecified psychosis not due to a substance or known physiological condition Current visit: Yes Status: Acute (2) Major neurocognitive disorder Problem details: Moderate, with behavioral disturbance Etiology: Lewy body dementia vs. frontotemporal vs. mixed Other medical problems: Chronic atrial fibrillation Hypertension Hyperlipidemia BPH Current visit: Yes Status: Acute Estimated Total Length of Stay (Days): 10 Hospital Course Summary Disclaimer: The visit summary below is not to be considered part of the above Progress Note. Hospital Course: Impression Dementia with behaviors Hallucinations Paranoia Chronic atrial fibrillation Hypertension Hyperlipidemia BPH Plan Agree with admission to the [facility] unit under the care of Dr. Guo for acute behaviors. Home medications reviewed. Continue on Cardizem, lisinopril, Maxide for treatment of hypertension and atrial fib. Continue on chronic anticoagulation, Pradaxa He may have regular diet Encourage patient to participate in unit activities and provide a safe environment The hospitalists services will continue to follow patient during her hospitalization. At time of discharge medical care will return to PCP Dr Henrik Brown 10/03/17 Psych: Continue home medications, monitor behavior. 10/04/17 Psych: Will start Depakote DR 500mg PO daily with dinner to target own, irritability as patient seems to be sensitive to neuroleptics; monitor response. 10/05/17 Psych: Will add Depakote 250mg PO q AM with breakfast and continue 500mg PO at dinner. Will schedule Ativan 1mg PO BID at 1800, 2100. Although patient is unsteady with this medication, we need to be able to control his agitation to protect the safety of staff until Depakote is titrated higher. He is quite sensitive to neuroleptics, which seem to increase agitation. 10/06/17 Psych: Continue current care while Depakote approaches steady-state; will then try to decrease Ativan once calmer. 10/07/17 Psych: Will increase Depakote DR to 250mg PO BID at 0800, 1200 and 500mg at 1800. Will decrease Ativan to 0.5mg PO at 1800 and continue 1mg PO q HS. He still has additional PRNs available for agitation. 10/08/17 Doing better. Continues to have VH but no behaviors or PRN's. Continue current care 10/09/17 Psych- Remains irritable at times. Continue current care Plan 10/09/17 PCP: Dr. Henrik Brown Patient continues to have significant behavior issues. Medication adjustment per psychiatry. Low grade fever yesterday- if persists, consider CXR. He does not appear acutely ill today. Continue current medication for BP and Atrial Fib. Both HR and BP is stable. Assess A1c, Lipid panel to meet core measures. Repeat basic labs in am. 10/10/17 Psych: Plan for CBC, VPA and ammonia level in the AM; adjust Depakote accordingly. 10/12/17 Psych: Depakote DR increased on 10/12 to 500mg PO q AM, 500mg PO mid-day and 750mg PO q HS after VPA level drawn. Plan to hold Seroquel and monitor response while Depakote reaches new steady-state. Monitor WBC to see if patient can even tolerate Depakote or another mood stabilizer is needed. 10/13/17 Psych: Plan to restart Seroquel 75mg PO q HS; continue current dose of Depakote. Plan to check level in AM on 10/15 as well as CBC to monitor blood cell counts relative to Depakote. 10/14/17 Psych: Plan to check VPA level in AM, as well as CBC and CMP. May adjust Depakote or have to look for other options if WBC continues to drop. 10/15/17 Psych- Pt remains confused but no behaviors. WBC remains low but steady. Will discuss with Dr. Guo.
[2017-10-15] MEDS: LORazepam 0.5 MG TABLET PO PRN (11:07)
[2017-10-15] MEDS: ACETAMINOPHEN 325 MG TABLET PO PRN (11:07)
--- NOTE | 2017-10-15 15:16 | Progress Note ---
- Date 10/15/17 Subjective: Patient seen sitting in the TV room today. He has been pleasant this morning. No concerns from staff at present. He talks nonsensically, unable to get history from patient. He is agreeable to exam. He's had no further fever. Objective Vital signs: Temperature 98.6 F 10/15/17 14:24 Pulse Rate 86 10/15/17 14:24 Respiratory Rate 18 10/15/17 14:24 Blood Pressure 104/72 10/15/17 14:24 Pulse Oximetry 94 10/15/17 14:24 Height/Weight/BMI: Height 1.78 m Weight 99.2 kg Body Mass Index 32.4 - Constitutional Present: no acute distress, well nourished, well developed - Routine HEENT Exam Head: Present: normocephalic, atraumatic - Routine Respiratory Exam Present: CTA bilaterally. Absent: wheezes - Routine Cardiovascular Exam Present: RRR, irregular rhythm - Routine Abdominal Exam Present: soft, non distended, non tender - Routine Extremities Exam Present: no edema, normal capillary refill - Routine Skin Exam Present: dry, warm - Routine Neurological Exam Present: alert. Absent: oriented X3, normal speech (talks nonsensically) - Routine Lymphatic Exam Lymphatic: Absent: adenopathy - Routine Psychiatric Exam Present: normal affect, cooperative Results - Labs CBC & Chem 7: 10/15/17 06:44 10/15/17 06:44 Assessment and Plan (1) Alzheimer's dementia with behavioral disturbance Current visit: Yes Status: Acute Assessment and Plan: Impression Dementia with behaviors Fever - low grade - not POA Hallucinations Paranoia Chronic atrial fibrillation Chronic anticoagulation with Pradaxa secondary to atrial fibrillation Hypertension Hyperlipidemia BPH Plan A.M. labs reviewed. White count is not elevated. CXR was essentially neg. Review of his temperatures since admission, he periodically runs up to 99.9, this may just be his baseline. VSS's, nurses notes, labs and psych notes reviewed. Medically stable at this time. No changes. - Physician Narrative Narrative: Date: 10/15/17 Time: 1510 Hospital Course Summary Disclaimer: The visit summary below is not to be considered part of the above Progress Note. Hospital Course: Impression Dementia with behaviors Hallucinations Paranoia Chronic atrial fibrillation Hypertension Hyperlipidemia BPH Plan Agree with admission to the [facility] unit under the care of Dr. Guo for acute behaviors. Home medications reviewed. Continue on Cardizem, lisinopril, Maxide for treatment of hypertension and atrial fib. Continue on chronic anticoagulation, Pradaxa He may have regular diet Encourage patient to participate in unit activities and provide a safe environment The hospitalists services will continue to follow patient during her hospitalization. At time of discharge medical care will return to PCP Dr Henrik Brown 10/03/17 Psych: Continue home medications, monitor behavior. 10/04/17 Psych: Will start Depakote DR 500mg PO daily with dinner to target , irritability as patient seems to be sensitive to neuroleptics; monitor response. 10/05/17 Psych: Will add Depakote 250mg PO q AM with breakfast and continue 500mg PO at dinner. Will schedule Ativan 1mg PO BID at 1800, 2100. Although patient is unsteady with this medication, we need to be able to control his agitation to protect the safety of staff until Depakote is titrated higher. He is quite sensitive to neuroleptics, which seem to increase agitation. 10/06/17 Psych: Continue current care while Depakote approaches steady-state; will then try to decrease Ativan once calmer. 10/07/17 Psych: Will increase Depakote DR to 250mg PO BID at 0800, 1200 and 500mg at 1800. Will decrease Ativan to 0.5mg PO at 1800 and continue 1mg PO q HS. He still has additional PRNs available for agitation. 10/08/17 Doing better. Continues to have VH but no behaviors or PRN's. Continue current care 10/09/17 Psych- Remains irritable at times. Continue current care Plan 10/09/17 PCP: Dr. Henrik Brown Patient continues to have significant behavior issues. Medication adjustment per psychiatry. Low grade fever yesterday- if persists, consider CXR. He does not appear acutely ill today. Continue current medication for BP and Atrial Fib. Both HR and BP is stable. Assess A1c, Lipid panel to meet core measures. Repeat basic labs in am. 10/10/17 Psych: Plan for CBC, VPA and ammonia level in the AM; adjust Depakote accordingly. 10/12/17 Psych: Depakote DR increased on 10/12 to 500mg PO q AM, 500mg PO mid-day and 750mg PO q HS after VPA level drawn. Plan to hold Seroquel and monitor response while Depakote reaches new steady-state. Monitor WBC to see if patient can even tolerate Depakote or another mood stabilizer is needed. 10/13/17 Psych: Plan to restart Seroquel 75mg PO q HS; continue current dose of Depakote. Plan to check level in AM on 10/15 as well as CBC to monitor blood cell counts relative to Depakote. 10/14/17 Psych: Plan to check VPA level in AM, as well as CBC and CMP. May adjust Depakote or have to look for other options if WBC continues to drop. 10/15/17 Psych- Pt remains confused but no behaviors. WBC remains low but steady. Will discuss with Dr. Guo. 10/15/17 hospitalist- A.M. labs reviewed. White count is not elevated. CXR was essentially neg. Review of his temperatures since admission, he periodically runs up to 99.9, this may just be his baseline. VSS's, nurses notes, labs and psych notes reviewed. Medically stable at this time. No changes.
[2017-10-15] MEDS: LORazepam 1 MG TABLET PO SCH (20:21)
[2017-10-15] MEDS: QUETIAPINE 50 MG TABLET PO SCH (20:21)
[2017-10-16] MEDS: ACETAMINOPHEN 325 MG TABLET PO PRN ×2 (07:31→20:13)
[2017-10-16] MEDS: DIVALPROEX SPRINKLE 125 MG CAPSULE PO SCH ×3 (07:32→17:12)
[2017-10-16] MEDS: TRIAMTERENE/HCTZ 37.5 MG-25 MG TABLET PO SCH (08:01)
[2017-10-16] MEDS: LISINOPRIL 20 MG TABLET PO SCH ×2 (08:02→20:07)
[2017-10-16] MEDS: FENOFIBRATE 160 MG TABLET PO SCH (08:02)
[2017-10-16] MEDS: SERTRALINE 50 MG TABLET PO SCH (08:02)
[2017-10-16] MEDS: MULTI-VITAMIN PLAIN TABLET PO SCH (08:03)
[2017-10-16] MEDS: APIXABAN 5 MG TABLET PO SCH ×2 (08:09→20:07)
[2017-10-16] MEDS: LORazepam 0.5 MG TABLET PO PRN (10:34)
--- NOTE | 2017-10-16 11:25 | Neuropsych Progress Note ---
[facility] Subjective Date: 10/16/17 - Sujective/Severity of Illness Medications: Acetaminophen (Tylenol) 325 - 650 mg PO Q5H PRN PRN Reason: Discomfort Last Admin: 10/16/17 07:31 Dose: 650 mg Apixaban (Eliquis) 5 mg PO BID [facility] Last Admin: 10/16/17 08:09 Dose: 5 mg Diltiazem HCl (Cardizem Cd 180 Mg) 180 mg PO DAILY [facility] Last Admin: 10/16/17 08:02 Dose: 180 mg Divalproex Sodium (Depakote Sprinkle) 500 mg PO 0800,1200 [facility] Last Admin: 10/16/17 11:01 Dose: 500 mg Divalproex Sodium (Depakote Sprinkle) 750 mg PO 1800 [facility] Last Admin: 10/15/17 17:35 Dose: 750 mg Fenofibrate (Lofibra) 160 mg PO WB [facility] Last Admin: 10/16/17 08:02 Dose: 160 mg Lisinopril (Prinivil) 20 mg PO BID [facility] Last Admin: 10/16/17 08:02 Dose: 20 mg Lorazepam (Ativan) 1 mg PO 21 [facility] Last Admin: 10/15/17 20:21 Dose: 1 mg Lorazepam (Ativan) 0.5 mg PO Q6H PRN PRN Reason: Extreme agitation Last Admin: 10/16/17 10:34 Dose: 0.5 mg Lorazepam (Ativan Inj) 0.5 mg IM Q6H PRN PRN Reason: Extreme agitation Lorazepam (Ativan Intensol) 0.5 mg PO Q6H PRN Last Admin: 10/14/17 13:17 Dose: 0.5 mg Multivitamins (Theragran) 1 tab PO DAILY [facility] Last Admin: 10/16/17 08:03 Dose: 1 tab Quetiapine Fumarate (Seroquel) 75 mg PO HS [facility] Last Admin: 10/15/17 20:21 Dose: 75 mg Sertraline HCl (Zoloft) 50 mg PO DAILY [facility] Last Admin: 10/16/17 08:02 Dose: 50 mg Triamterene/HCTZ (Maxzide-25 Eqv) 0.5 tab PO DAILY [facility] Last Admin: 10/16/17 08:01 Dose: 0.5 tab Subjective: Patient seen and chart reviewed. Nursing reports pt slept well and has a good appetite. Was agitated yesterday and was aggressive with staff. On face to face the pt is seen walking in the [place]. He is pleasant but confused. He is only oriented to self. Denies pain. Nursing reports continued VH at times. Tolerating meds Start Time: 10:00 Stop Time: 10:15 Mental Status Exam Vitals: Last Vital Signs Temp 97.9 F 10/16/17 07:52 Pulse 93 10/16/17 07:52 Resp 20 10/16/17 07:52 BP 141/84 H 10/16/17 07:52 Pulse Ox 96 10/16/17 07:52 Height: 1.78 m Weight: 99.2 kg - Mental Status Exam Muscle Strength/Tone: Normal Dressing: Casual Grooming: Fair Attitude: Combative (at times, decreasing overall), Other (cooperation varies) Motor Activity: Retardation Eye Contact: Good Speech: Slowed Volume: Normal Rhythm: Appropriate Rhythm Orientation: Disoriented to time, Disoriented to situation, Oriented to person, Oriented to place Mood: Neutral (labile affect, improving overall) Rate of Thoughts: Delayed Thought Organization: Confused Associations: Illogical (at times) Abstract Reasoning: Poor abstract reasoning Thought Content: Other (confusion) Perception/Psychotic: Psychotic Current Hallucinations: Visual (frequent, vivid), Tactile Language: Naming Intact (though has some expressive aphasia) Fund of Knowledge: Other (Decreased from premorbid baseline) Memory: Poor-recent Suicidal Ideation: Denies Homicidal Ideation: Denies Insight: Impaired Judgement: Impaired Impulse Control: Poor (improved from admission) - Laboratory Result Diagrams: 10/15/17 06:44 10/15/17 06:44 Assessment and Plan (1) Psychosis Qualifiers: Psychosis type: unspecified psychosis type Qualified Code(s): F29 - Unspecified psychosis not due to a substance or known physiological condition Current visit: Yes Status: Acute (2) Major neurocognitive disorder Problem details: Moderate, with behavioral disturbance Etiology: Lewy body dementia vs. frontotemporal vs. mixed Other medical problems: Chronic atrial fibrillation Hypertension Hyperlipidemia BPH Current visit: Yes Status: Acute Estimated Total Length of Stay (Days): 10 Hospital Course Summary Disclaimer: The visit summary below is not to be considered part of the above Progress Note. Hospital Course: Impression Dementia with behaviors Hallucinations Paranoia Chronic atrial fibrillation Hypertension Hyperlipidemia BPH Plan Agree with admission to the [facility] unit under the care of Dr. Guo for acute behaviors. Home medications reviewed. Continue on Cardizem, lisinopril, Maxide for treatment of hypertension and atrial fib. Continue on chronic anticoagulation, Pradaxa He may have regular diet Encourage patient to participate in unit activities and provide a safe environment The hospitalists services will continue to follow patient during her hospitalization. At time of discharge medical care will return to PCP Dr Henrik Brown 10/03/17 Psych: Continue home medications, monitor behavior. 10/04/17 Psych: Will start Depakote DR 500mg PO daily with dinner to [employer] own, irritability as patient seems to be sensitive to neuroleptics; monitor response. 10/05/17 Psych: Will add Depakote 250mg PO q AM with breakfast and continue 500mg PO at dinner. Will schedule Ativan 1mg PO BID at 1800, 2100. Although patient is unsteady with this medication, we need to be able to control his agitation to protect the safety of staff until Depakote is titrated higher. He is quite sensitive to neuroleptics, which seem to increase agitation. 10/06/17 Psych: Continue current care while Depakote approaches steady-state; will then try to decrease Ativan once calmer. 10/07/17 Psych: Will increase Depakote DR to 250mg PO BID at 0800, 1200 and 500mg at 1800. Will decrease Ativan to 0.5mg PO at 1800 and continue 1mg PO q HS. He still has additional PRNs available for agitation. 10/08/17 Doing better. Continues to have VH but no behaviors or PRN's. Continue current care 10/09/17 Psych- Remains irritable at times. Continue current care Plan 10/09/17 PCP: Dr. Henrik Brown Patient continues to have significant behavior issues. Medication adjustment per psychiatry. Low grade fever yesterday- if persists, consider CXR. He does not appear acutely ill today. Continue current medication for BP and Atrial Fib. Both HR and BP is stable. Assess A1c, Lipid panel to meet core measures. Repeat basic labs in am. 10/10/17 Psych: Plan for CBC, VPA and ammonia level in the AM; adjust Depakote accordingly. 10/12/17 Psych: Depakote DR increased on 10/12 to 500mg PO q AM, 500mg PO mid-day and 750mg PO q HS after VPA level drawn. Plan to hold Seroquel and monitor response while Depakote reaches new steady-state. Monitor WBC to see if patient can even tolerate Depakote or another mood stabilizer is needed. 10/13/17 Psych: Plan to restart Seroquel 75mg PO q HS; continue current dose of Depakote. Plan to check level in AM on 10/15 as well as CBC to monitor blood cell counts relative to Depakote. 10/14/17 Psych: Plan to check VPA level in AM, as well as CBC and CMP. May adjust Depakote or have to look for other options if WBC continues to drop. 10/15/17 Psych- Pt remains confused but no behaviors. WBC remains low but steady. Will discuss with Dr. Guo. 10/15/17 hospitalist- A.M. labs reviewed. White count is not elevated. CXR was essentially neg. Review of his temperatures since admission, he periodically runs up to 99.9, this may just be his baseline. VSS's, nurses notes, labs and psych notes reviewed. Medically stable at this time. No changes. 10/16/17 Psych- PT remains agitated at times. Continue current care
--- NOTE | 2017-10-16 18:44 | XRay Report ---
Indication: fever PROCEDURE: XR chest 1V: Encounter: Initial Comparison: October 03, 2017 Findings: Increasing interstitial prominence bilaterally. No lobar consolidation. No pleural effusion or pneumothorax. Heart size and mediastinal contours are stable. Hiatal hernia. Impression: Mild interstitial prominence could relate to vascular congestion or atypical/viral pneumonia. There is a preliminary report by [facility]. .
[2017-10-16] MEDS: LORazepam 1 MG TABLET PO SCH (20:07)
[2017-10-16] MEDS: QUETIAPINE 50 MG TABLET PO SCH (20:07)
[2017-10-17] MEDS: FENOFIBRATE 160 MG TABLET PO SCH (08:20)
[2017-10-17] MEDS: APIXABAN 5 MG TABLET PO SCH ×2 (08:20→19:35)
[2017-10-17] MEDS: DIVALPROEX SPRINKLE 125 MG CAPSULE PO SCH ×3 (08:20→17:04)
[2017-10-17] MEDS: LISINOPRIL 20 MG TABLET PO SCH (08:21)
[2017-10-17] MEDS: MULTI-VITAMIN PLAIN TABLET PO SCH (08:21)
[2017-10-17] MEDS: SERTRALINE 50 MG TABLET PO SCH (08:21)
[2017-10-17] MEDS: TRIAMTERENE/HCTZ 37.5 MG-25 MG TABLET PO SCH (08:21)
[2017-10-17] MEDS ORDERED: OLANZapine INJ 10 MG VIAL IM ONE (08:41)
--- NOTE | 2017-10-17 11:14 | Progress Note ---
- Date 10/17/17 Subjective: Patient was seen at the request of nursing staff for a partially avulsed great toenail. Nurses report he was kicking and throwing furniture and as a result, his toenail came loose, but is still attached. There is mild bleeding. Patient is not complaining of pain. Objective Vital signs: Temperature 97.9 F 10/17/17 07:51 Pulse Rate 92 10/17/17 07:51 Respiratory Rate 18 10/17/17 07:51 Blood Pressure 138/74 10/17/17 07:51 Pulse Oximetry 95 10/17/17 07:51 Height/Weight/BMI: Height 1.78 m Weight 99.2 kg Body Mass Index 32.4 - Routine HEENT Exam Head: Present: normocephalic, atraumatic - Routine Respiratory Exam Absent: dyspnea, respiratory distress - Routine Extremities Exam Comments: Left great toenail is completely detached from the nail bed but is still attached along the cuticle. Nail was gently removed manually. Patient tolerated this well. Minimal bleeding. Surrounding skin is intact. - Routine Skin Exam Present: dry, warm - Routine Neurological Exam Present: alert, altered mental status Results - Labs CBC & Chem 7: 10/15/17 06:44 10/15/17 06:44 Assessment and Plan (1) Alzheimer's dementia with behavioral disturbance Current visit: Yes Status: Acute Assessment and Plan: Impression Partial left great toenail avulsion - 10/17/17 (followed by complete removal) Dementia with behaviors Fever - low grade - not POA Hallucinations Paranoia Chronic atrial fibrillation Chronic anticoagulation with Pradaxa secondary to atrial fibrillation Hypertension Hyperlipidemia BPH Plan The detached part of the nail was grasped and remainder of the nail was gently removed from the nail base. Patient tolerated this well. Patient had minimal bleeding. Area will be cleaned with peroxide and dressed with triple antibiotic ointment and a Band-Aid. Nurses will watch for infection. Keep the area clean and dry. Will likely not need anything for pain. - Physician Narrative Narrative: Date: 10/17/17 Time: 1111 Hospital Course Summary Disclaimer: The visit summary below is not to be considered part of the above Progress Note. Hospital Course: Impression Dementia with behaviors Hallucinations Paranoia Chronic atrial fibrillation Hypertension Hyperlipidemia BPH Plan Agree with admission to the [facility] under the care of Dr. Guo for acute behaviors. Home medications reviewed. Continue on Cardizem, lisinopril, Maxide for treatment of hypertension and atrial fib. Continue on chronic anticoagulation, Pradaxa He may have regular diet Encourage patient to participate in unit activities and provide a safe environment The hospitalists services will continue to follow patient during her hospitalization. At time of discharge medical care will return to PCP Dr Henrik Brown 10/03/17 Psych: Continue home medications, monitor behavior. 10/04/17 Psych: Will start Depakote DR 500mg PO daily with dinner to [employer] own, irritability as patient seems to be sensitive to neuroleptics; monitor response. 10/05/17 Psych: Will add Depakote 250mg PO q AM with breakfast and continue 500mg PO at dinner. Will schedule Ativan 1mg PO BID at 1800, 2100. Although patient is unsteady with this medication, we need to be able to control his agitation to protect the safety of staff until Depakote is titrated higher. He is quite sensitive to neuroleptics, which seem to increase agitation. 10/06/17 Psych: Continue current care while Depakote approaches steady-state; will then try to decrease Ativan once calmer. 10/07/17 Psych: Will increase Depakote DR to 250mg PO BID at 0800, 1200 and 500mg at 1800. Will decrease Ativan to 0.5mg PO at 1800 and continue 1mg PO q HS. He still has additional PRNs available for agitation. 10/08/17 Doing better. Continues to have VH but no behaviors or PRN's. Continue current care 10/09/17 Psych- Remains irritable at times. Continue current care Plan 10/09/17 PCP: Dr. Henrik Brown Patient continues to have significant behavior issues. Medication adjustment per psychiatry. Low grade fever yesterday- if persists, consider CXR. He does not appear acutely ill today. Continue current medication for BP and Atrial Fib. Both HR and BP is stable. Assess A1c, Lipid panel to meet core measures. Repeat basic labs in am. 10/10/17 Psych: Plan for CBC, VPA and ammonia level in the AM; adjust Depakote accordingly. 10/12/17 Psych: Depakote DR increased on 10/12 to 500mg PO q AM, 500mg PO mid-day and 750mg PO q HS after VPA level drawn. Plan to hold Seroquel and monitor response while Depakote reaches new steady-state. Monitor WBC to see if patient can even tolerate Depakote or another mood stabilizer is needed. 10/13/17 Psych: Plan to restart Seroquel 75mg PO q HS; continue current dose of Depakote. Plan to check level in AM on 10/15 as well as CBC to monitor blood cell counts relative to Depakote. 10/14/17 Psych: Plan to check VPA level in AM, as well as CBC and CMP. May adjust Depakote or have to look for other options if WBC continues to drop. 10/15/17 Psych- Pt remains confused but no behaviors. WBC remains low but steady. Will discuss with Dr. Guo. 10/15/17 hospitalist- A.M. labs reviewed. White count is not elevated. CXR was essentially neg. Review of his temperatures since admission, he periodically runs up to 99.9, this may just be his baseline. VSS's, nurses notes, labs and psych notes reviewed. Medically stable at this time. No changes. 10/16/17 Psych- PT remains agitated at times. Continue current care 10/17/17 hospitalist The detached part of the nail was grasped and remainder of the nail was gently removed from the nail base. Patient tolerated this well. Patient had minimal bleeding. Area will be cleaned with peroxide and dressed with triple antibiotic ointment and a Band-Aid. Nurses will watch for infection. Keep the area clean and dry. Will likely not need anything for pain.
--- NOTE | 2017-10-17 12:27 | Neuropsych Progress Note ---
[facility] Subjective Date: 10/17/17 - Sujective/Severity of Illness Medications: Acetaminophen (Tylenol) 325 - 650 mg PO Q5H PRN PRN Reason: Discomfort Last Admin: 10/16/17 20:13 Dose: 650 mg Apixaban (Eliquis) 5 mg PO BID [facility] Last Admin: 10/17/17 08:20 Dose: 5 mg Diltiazem HCl (Cardizem Cd 180 Mg) 180 mg PO DAILY [facility] Last Admin: 10/17/17 08:21 Dose: 180 mg Divalproex Sodium (Depakote Sprinkle) 750 mg PO 08,,18 [facility] Last Admin: 10/17/17 12:16 Dose: 750 mg Fenofibrate (Lofibra) 160 mg PO WB [facility] Last Admin: 10/17/17 08:20 Dose: 160 mg Lisinopril (Prinivil) 20 mg PO BID [facility] Last Admin: 10/17/17 08:21 Dose: 20 mg Lorazepam (Ativan) 1 mg PO 21 [facility] Last Admin: 10/16/17 20:07 Dose: 1 mg Lorazepam (Ativan) 0.5 mg PO Q6H PRN PRN Reason: Extreme agitation Last Admin: 10/16/17 10:34 Dose: 0.5 mg Lorazepam (Ativan Inj) 0.5 mg IM Q6H PRN PRN Reason: Extreme agitation Lorazepam (Ativan Intensol) 0.5 mg PO Q6H PRN Last Admin: 10/14/17 13:17 Dose: 0.5 mg Multivitamins (Theragran) 1 tab PO DAILY [facility] Last Admin: 10/17/17 08:21 Dose: 1 tab Quetiapine Fumarate (Seroquel) 75 mg PO HS [facility] Last Admin: 10/16/17 20:07 Dose: 75 mg Sertraline HCl (Zoloft) 50 mg PO DAILY [facility] Last Admin: 10/17/17 08:21 Dose: 50 mg Triamterene/HCTZ (Maxzide-25 Eqv) 0.5 tab PO DAILY [facility] Last Admin: 10/17/17 08:21 Dose: 0.5 tab Subjective: Patient seen and chart reviewed. Case discussed with treatment team. On interview, patient is labile and intermittently agitated. He becomes physically aggressive with nursing staff without provocation. He does not respond to answers logically. Nursing staff report patient has behaved similarly over past 24 hours, requiring PRN medications on multiple occasions. Patient has been variably adherent with medications. Patient slept 8.5 hours overnight. VSS. Patient often requires assistance to eat well. Start Time: 09:00 Stop Time: 09:20 Mental Status Exam Vitals: Last Vital Signs Temp 97.9 F 10/17/17 07:51 Pulse 92 10/17/17 07:51 Resp 18 10/17/17 07:51 BP 138/74 10/17/17 07:51 Pulse Ox 95 10/17/17 07:51 Height: 1.78 m Weight: 99.2 kg - Mental Status Exam Muscle Strength/Tone: Normal Dressing: Casual Grooming: Fair Attitude: Combative Motor Activity: Retardation Eye Contact: Good Speech: Slowed Volume: Normal Rhythm: Appropriate Rhythm Orientation: Disoriented to time, Disoriented to situation, Oriented to person, Oriented to place Mood: Neutral (labile affect) Rate of Thoughts: Delayed Thought Organization: Confused Associations: Illogical (at times) Abstract Reasoning: Poor abstract reasoning Thought Content: Other (confusion) Perception/Psychotic: Psychotic Current Hallucinations: Visual (frequent, vivid), Tactile Language: Naming Intact (though has some expressive aphasia) Fund of Knowledge: Other (Decreased from premorbid baseline) Memory: Poor-recent Suicidal Ideation: Denies Homicidal Ideation: Denies Insight: Impaired Judgement: Impaired Impulse Control: Poor (improved from admission) - Laboratory Result Diagrams: 10/15/17 06:44 10/15/17 06:44 Assessment and Plan (1) Psychosis Qualifiers: Psychosis type: unspecified psychosis type Qualified Code(s): F29 - Unspecified psychosis not due to a substance or known physiological condition Current visit: Yes Status: Acute (2) Major neurocognitive disorder Problem details: Moderate, with behavioral disturbance Etiology: Lewy body dementia vs. frontotemporal vs. mixed Other medical problems: Chronic atrial fibrillation Hypertension Hyperlipidemia BPH Current visit: Yes Status: Acute Increase Depakote sprinkles to 750mg PO TID; continue to monitor WBC as we have limited other medication options for behavioral dyscontrol and patient has not responded well to other medications in the past. Calmed this morning with PRN Zyprexa 2.5mg so will schedule in AM and give trial of Zyprexa 5mg at HS as well rather than Seroquel. Monitor response. Family meeting tomorrow. Estimated Total Length of Stay (Days): 10 Hospital Course Summary Disclaimer: The visit summary below is not to be considered part of the above Progress Note. Hospital Course: Impression Dementia with behaviors Hallucinations Paranoia Chronic atrial fibrillation Hypertension Hyperlipidemia BPH Plan Agree with admission to the [facility] under the care of Dr. Guo for acute behaviors. Home medications reviewed. Continue on Cardizem, lisinopril, Maxide for treatment of hypertension and atrial fib. Continue on chronic anticoagulation, Pradaxa He may have regular diet Encourage patient to participate in unit activities and provide a safe environment The hospitalists services will continue to follow patient during her hospitalization. At time of discharge medical care will return to PCP Dr Henrik Brown 10/03/17 Psych: Continue home medications, monitor behavior. 10/04/17 Psych: Will start Depakote DR 500mg PO daily with dinner to [employer] owning, irritability as patient seems to be sensitive to neuroleptics; monitor response. 10/05/17 Psych: Will add Depakote 250mg PO q AM with breakfast and continue 500mg PO at dinner. Will schedule Ativan 1mg PO BID at 1800, 2100. Although patient is unsteady with this medication, we need to be able to control his agitation to protect the safety of staff until Depakote is titrated higher. He is quite sensitive to neuroleptics, which seem to increase agitation. 10/06/17 Psych: Continue current care while Depakote approaches steady-state; will then try to decrease Ativan once calmer. 10/07/17 Psych: Will increase Depakote DR to 250mg PO BID at 0800, 1200 and 500mg at 1800. Will decrease Ativan to 0.5mg PO at 1800 and continue 1mg PO q HS. He still has additional PRNs available for agitation. 10/08/17 Doing better. Continues to have VH but no behaviors or PRN's. Continue current care 10/09/17 Psych- Remains irritable at times. Continue current care Plan 10/09/17 PCP: Dr. Henrik Brown Patient continues to have significant behavior issues. Medication adjustment per psychiatry. Low grade fever yesterday- if persists, consider CXR. He does not appear acutely ill today. Continue current medication for BP and Atrial Fib. Both HR and BP is stable. Assess A1c, Lipid panel to meet core measures. Repeat basic labs in am. 10/10/17 Psych: Plan for CBC, VPA and ammonia level in the AM; adjust Depakote accordingly. 10/12/17 Psych: Depakote DR increased on 10/12 to 500mg PO q AM, 500mg PO mid-day and 750mg PO q HS after VPA level drawn. Plan to hold Seroquel and monitor response while Depakote reaches new steady-state. Monitor WBC to see if patient can even tolerate Depakote or another mood stabilizer is needed. 10/13/17 Psych: Plan to restart Seroquel 75mg PO q HS; continue current dose of Depakote. Plan to check level in AM on 10/15 as well as CBC to monitor blood cell counts relative to Depakote. 10/14/17 Psych: Plan to check VPA level in AM, as well as CBC and CMP. May adjust Depakote or have to look for other options if WBC continues to drop. 10/15/17 Psych- Pt remains confused but no behaviors. WBC remains low but steady. Will discuss with Dr. Guo. 10/15/17 hospitalist- A.M. labs reviewed. White count is not elevated. CXR was essentially neg. Review of his temperatures since admission, he periodically runs up to 99.9, this may just be his baseline. VSS's, nurses notes, labs and psych notes reviewed. Medically stable at this time. No changes. 10/16/17 Psych- PT remains agitated at times. Continue current care 10/17/17 hospitalist The detached part of the nail was grasped and remainder of the nail was gently removed from the nail base. Patient tolerated this well. Patient had minimal bleeding. Area will be cleaned with peroxide and dressed with triple antibiotic ointment and a Band-Aid. Nurses will watch for infection. Keep the area clean and dry. Will likely not need anything for pain.
[2017-10-17] MEDS: LORazepam 1 MG TABLET PO SCH (19:42)
[2017-10-17] MEDS: OLANZapine ODT 5 MG TABLET PO SCH (19:43)
[2017-10-18] MEDS: APIXABAN 5 MG TABLET PO SCH ×3 (03:15→20:06)
[2017-10-18] MEDS: LISINOPRIL 20 MG TABLET PO SCH ×3 (03:16→20:06)
[2017-10-18] MEDS: LORazepam 1 MG TABLET PO SCH ×2 (03:16→20:06)
[2017-10-18] MEDS: OLANZapine ODT 5 MG TABLET PO SCH ×2 (03:16→20:05)
[2017-10-18] MEDS: DIVALPROEX SPRINKLE 125 MG CAPSULE PO SCH ×3 (08:05→17:39)
[2017-10-18] MEDS: FENOFIBRATE 160 MG TABLET PO SCH (08:06)
[2017-10-18] MEDS: MULTI-VITAMIN PLAIN TABLET PO SCH (08:07)
[2017-10-18] MEDS: SERTRALINE 50 MG TABLET PO SCH (08:08)
[2017-10-18] MEDS: TRIAMTERENE/HCTZ 37.5 MG-25 MG TABLET PO SCH (08:08)
[2017-10-18] MEDS ORDERED: OLANZapine ODT 5 MG TABLET PO SCH (09:00)
[2017-10-18] MEDS: LORazepam 0.5 MG TABLET PO PRN (17:40)
--- NOTE | 2017-10-18 18:59 | Neuropsych Progress Note ---
[facility] Subjective Date: 10/19/17 - Sujective/Severity of Illness Medications: Acetaminophen (Tylenol) 325 - 650 mg PO Q5H PRN PRN Reason: Discomfort Last Admin: 10/16/17 20:13 Dose: 650 mg Apixaban (Eliquis) 5 mg PO BID [facility] Last Admin: 10/18/17 08:06 Dose: 5 mg Diltiazem HCl (Cardizem Cd 180 Mg) 180 mg PO DAILY [facility] Last Admin: 10/18/17 08:06 Dose: 180 mg Divalproex Sodium (Depakote Sprinkle) 750 mg PO 08,,18 [facility] Last Admin: 10/18/17 17:39 Dose: 750 mg Fenofibrate (Lofibra) 160 mg PO WB [facility] Last Admin: 10/18/17 08:06 Dose: 160 mg Lisinopril (Prinivil) 20 mg PO BID [facility] Last Admin: 10/18/17 08:06 Dose: 20 mg Lorazepam (Ativan) 1 mg PO 21 [facility] Last Admin: 10/18/17 03:16 Dose: Not Given Lorazepam (Ativan) 0.5 mg PO Q6H PRN PRN Reason: Extreme agitation Last Admin: 10/18/17 17:40 Dose: 0.5 mg Lorazepam (Ativan Inj) 0.5 mg IM Q6H PRN PRN Reason: Extreme agitation Lorazepam (Ativan Intensol) 0.5 mg PO Q6H PRN Last Admin: 10/14/17 13:17 Dose: 0.5 mg Multivitamins (Theragran) 1 tab PO DAILY [facility] Last Admin: 10/18/17 08:07 Dose: 1 tab Olanzapine (Zyprexa Zydis) 5 mg PO BID [facility] Sertraline HCl (Zoloft) 50 mg PO DAILY [facility] Last Admin: 10/18/17 08:08 Dose: 50 mg Triamterene/HCTZ (Maxzide-25 Eqv) 0.5 tab PO DAILY [facility] Last Admin: 10/18/17 08:08 Dose: 0.5 tab Subjective: Patient seen and chart reviewed. Case discussed with treatment team. On interview, patient does not respond logically to most questions. He is labile and intermittently agitated. He becomes physically aggressive with nursing staff without provocation. Nursing staff report patient has behaved similarly over past 24 hours, requiring PRN medications on multiple occasions. Patient has been variably adherent with medications. Patient slept 6.5 hours overnight. VSS. Patient often requires assistance to eat well. Family meeting was held with , son Jose Luis and son Rian (via telephone). Discussed nature of diagnosis and that Depakote is likely contributing to more confusion, but that we have very limited med options to control aggression as patient is very physically aggressive with others. They are understanding of this. Discussed lab abnormalities and that we are monitoring WBC for the time being due to having limited options otherwise. Discussed diagnosis, prognosis, recommendation for placement due to safety of others but also difficulty with continued aggression. They are willing to consider Hospice support at this time. All questions answered to their satisfaction. Start Time: 14:40 Stop Time: 15:20 Care: >50% of this visit spent in counseling/coordination care. (family meeting as above) Mental Status Exam Vitals: Last Vital Signs Temp 99.0 F 10/18/17 15:32 Pulse 79 10/18/17 15:32 Resp 16 10/18/17 15:32 BP 127/91 H 10/18/17 15:32 Pulse Ox 95 10/18/17 15:32 Height: 1.78 m Weight: 99.2 kg - Mental Status Exam Muscle Strength/Tone: Normal Dressing: Casual Grooming: Fair Attitude: Combative Motor Activity: Retardation Eye Contact: Good Speech: Slowed Volume: Normal Rhythm: Appropriate Rhythm Orientation: Disoriented to time, Disoriented to situation, Oriented to person, Oriented to place Mood: Neutral (labile affect) Rate of Thoughts: Delayed Thought Organization: Confused Associations: Illogical (at times) Abstract Reasoning: Poor abstract reasoning Thought Content: Other (confusion) Perception/Psychotic: Psychotic Current Hallucinations: Visual (frequent, vivid), Tactile Language: Naming Intact (though has some expressive aphasia) Fund of Knowledge: Other (Decreased from premorbid baseline) Memory: Poor-recent Suicidal Ideation: Denies Homicidal Ideation: Denies Insight: Impaired Judgement: Impaired Impulse Control: Poor (improved from admission) - Laboratory Result Diagrams: 10/15/17 06:44 10/15/17 06:44 Assessment and Plan (1) Psychosis Qualifiers: Psychosis type: unspecified psychosis type Qualified Code(s): F29 - Unspecified psychosis not due to a substance or known physiological condition Current visit: Yes Status: Acute (2) Major neurocognitive disorder Problem details: Moderate, with behavioral disturbance Etiology: Lewy body dementia vs. frontotemporal vs. mixed Other medical problems: Chronic atrial fibrillation Hypertension Hyperlipidemia BPH Current visit: Yes Status: Acute Family in agreement with looking for placement and consulting Hospice. Estimated Total Length of Stay (Days): 10 Hospital Course Summary Disclaimer: The visit summary below is not to be considered part of the above Progress Note. Hospital Course: Impression Dementia with behaviors Hallucinations Paranoia Chronic atrial fibrillation Hypertension Hyperlipidemia BPH Plan Agree with admission to the [facility] unit under the care of Dr. Guo for acute behaviors. Home medications reviewed. Continue on Cardizem, lisinopril, Maxide for treatment of hypertension and atrial fib. Continue on chronic anticoagulation, Pradaxa He may have regular diet Encourage patient to participate in unit activities and provide a safe environment The hospitalists services will continue to follow patient during her hospitalization. At time of discharge medical care will return to PCP Dr Henrik Brown 10/03/17 Psych: Continue home medications, monitor behavior. 10/04/17 Psych: Will start Depakote DR 500mg PO daily with dinner to [employer], irritability as patient seems to be sensitive to neuroleptics; monitor response. 10/05/17 Psych: Will add Depakote 250mg PO q AM with breakfast and continue 500mg PO at dinner. Will schedule Ativan 1mg PO BID at 1800, 2100. Although patient is unsteady with this medication, we need to be able to control his agitation to protect the safety of staff until Depakote is titrated higher. He is quite sensitive to neuroleptics, which seem to increase agitation. 10/06/17 Psych: Continue current care while Depakote approaches steady-state; will then try to decrease Ativan once calmer. 10/07/17 Psych: Will increase Depakote DR to 250mg PO BID at 0800, 1200 and 500mg at 1800. Will decrease Ativan to 0.5mg PO at 1800 and continue 1mg PO q HS. He still has additional PRNs available for agitation. 10/08/17 Doing better. Continues to have VH but no behaviors or PRN's. Continue current care 10/09/17 Psych- Remains irritable at times. Continue current care Plan 10/09/17 PCP: Dr. Henrik Brown Patient continues to have significant behavior issues. Medication adjustment per psychiatry. Low grade fever yesterday- if persists, consider CXR. He does not appear acutely ill today. Continue current medication for BP and Atrial Fib. Both HR and BP is stable. Assess A1c, Lipid panel to meet core measures. Repeat basic labs in am. 10/10/17 Psych: Plan for CBC, VPA and ammonia level in the AM; adjust Depakote accordingly. 10/12/17 Psych: Depakote DR increased on 10/12 to 500mg PO q AM, 500mg PO mid-day and 750mg PO q HS after VPA level drawn. Plan to hold Seroquel and monitor response while Depakote reaches new steady-state. Monitor WBC to see if patient can even tolerate Depakote or another mood stabilizer is needed. 10/13/17 Psych: Plan to restart Seroquel 75mg PO q HS; continue current dose of Depakote. Plan to check level in AM on 10/15 as well as CBC to monitor blood cell counts relative to Depakote. 10/14/17 Psych: Plan to check VPA level in AM, as well as CBC and CMP. May adjust Depakote or have to look for other options if WBC continues to drop. 10/15/17 Psych- Pt remains confused but no behaviors. WBC remains low but steady. Will discuss with Dr. Guo. 10/15/17 hospitalist- A.M. labs reviewed. White count is not elevated. CXR was essentially neg. Review of his temperatures since admission, he periodically runs up to 99.9, this may just be his baseline. VSS's, nurses notes, labs and psych notes reviewed. Medically stable at this time. No changes. 10/16/17 Psych- PT remains agitated at times. Continue current care 10/17/17 hospitalist The detached part of the nail was grasped and remainder of the nail was gently removed from the nail base. Patient tolerated this well. Patient had minimal bleeding. Area will be cleaned with peroxide and dressed with triple antibiotic ointment and a Band-Aid. Nurses will watch for infection. Keep the area clean and dry. Will likely not need anything for pain. 10/17/17 Psych: Increase Depakote sprinkles to 750mg PO TID; continue to monitor WBC as we have limited other medication options for behavioral dyscontrol and patient has not responded well to other medications in the past. Calmed this morning with PRN Zyprexa 2.5mg so will schedule in AM and give trial of Zyprexa 5mg at HS as well rather than Seroquel. Monitor response. Family meeting tomorrow. 10/18/17 Psych: Family in agreement with looking for placement and consulting Hospice.
[2017-10-19] MEDS: TRIAMTERENE/HCTZ 37.5 MG-25 MG TABLET PO SCH (08:10)
[2017-10-19] MEDS: DIVALPROEX SPRINKLE 125 MG CAPSULE PO SCH ×3 (08:11→18:02)
[2017-10-19] MEDS: APIXABAN 5 MG TABLET PO SCH ×3 (08:12→21:20)
[2017-10-19] MEDS: FENOFIBRATE 160 MG TABLET PO SCH (08:12)
[2017-10-19] MEDS: OLANZapine ODT 5 MG TABLET PO SCH ×3 (08:12→21:20)
[2017-10-19] MEDS: SERTRALINE 50 MG TABLET PO SCH (08:12)
[2017-10-19] MEDS: LISINOPRIL 20 MG TABLET PO SCH ×3 (08:13→21:20)
[2017-10-19] MEDS: MULTI-VITAMIN PLAIN TABLET PO SCH (08:13)
[2017-10-19] MEDS: LORazepam 0.5 MG TABLET PO PRN ×2 (08:14→12:17)
--- NOTE | 2017-10-19 11:56 | Neuropsych Progress Note ---
Gener[facility] Subjective Date: 10/19/17 - Sujective/Severity of Illness Medications: Acetaminophen (Tylenol) 325 - 650 mg PO Q5H PRN PRN Reason: Discomfort Last Admin: 10/16/17 20:13 Dose: 650 mg Apixaban (Eliquis) 5 mg PO BID [facility] Last Admin: 10/19/17 08:12 Dose: 5 mg Diltiazem HCl (Cardizem Cd 180 Mg) 180 mg PO DAILY [facility] Last Admin: 10/19/17 08:12 Dose: 180 mg Divalproex Sodium (Depakote Sprinkle) 750 mg PO ,, [facility] Last Admin: 10/19/17 08:11 Dose: 750 mg Fenofibrate (Lofibra) 160 mg PO WB [facility] Last Admin: 10/19/17 08:12 Dose: 160 mg Lisinopril (Prinivil) 20 mg PO BID [facility] Last Admin: 10/19/17 08:13 Dose: 20 mg Lorazepam (Ativan) 1 mg PO 21 [facility] Last Admin: 10/18/17 20:06 Dose: 1 mg Lorazepam (Ativan Inj) 1 mg IM Q4H PRN PRN Reason: Extreme agitation Lorazepam (Ativan Intensol) 1 mg PO Q4H PRN Lorazepam (Ativan) 1 mg PO Q4H PRN PRN Reason: Extreme agitation Last Admin: 10/19/17 08:14 Dose: 1 mg Multivitamins (Theragran) 1 tab PO DAILY [facility] Last Admin: 10/19/17 08:13 Dose: 1 tab Olanzapine (Zyprexa Zydis) 5 mg PO BID [facility] Last Admin: 10/19/17 08:12 Dose: 5 mg Sertraline HCl (Zoloft) 50 mg PO DAILY [facility] Last Admin: 10/19/17 08:12 Dose: 50 mg Triamterene/HCTZ (Maxzide-25 Eqv) 0.5 tab PO DAILY [facility] Last Admin: 10/19/17 08:10 Dose: 0.5 tab Subjective: Patient seen and chart reviewed. Case discussed with treatment team. On interview, patient does not respond logically to most questions. He is labile and intermittently agitated. He becomes physically aggressive with nursing staff without provocation. Nursing staff report patient has behaved similarly over past 24 hours, requiring PRN medications on multiple occasions. They do not feel Zyprexa has been particularly helpful - recent days, agitation is worse in AM than overnight. Patient has been variably adherent with medications. Patient slept 9 hours overnight. VSS. Patient often requires assistance to eat well. Family met with 2 different Hospice services yesterday with plan to request services in addition to placement. Start Time: 09:00 Stop Time: 09:20 Mental Status Exam Vitals: Last Vital Signs Temp 97.8 F 10/19/17 07:11 Pulse 94 10/19/17 07:11 Resp 18 10/19/17 07:11 BP 136/84 10/19/17 07:11 Pulse Ox 95 10/19/17 07:11 Height: 1.78 m Weight: 99.2 kg - Mental Status Exam Muscle Strength/Tone: Normal Dressing: Casual Grooming: Fair Attitude: Combative Motor Activity: Retardation Eye Contact: Good Speech: Slowed Volume: Normal Rhythm: Appropriate Rhythm Orientation: Disoriented to time, Disoriented to situation, Oriented to person, Oriented to place Mood: Neutral (labile affect) Rate of Thoughts: Delayed Thought Organization: Confused Associations: Illogical (at times) Abstract Reasoning: Poor abstract reasoning Thought Content: Other (confusion) Perception/Psychotic: Psychotic Current Hallucinations: Visual (frequent, vivid), Tactile Language: Naming Intact (though has some expressive aphasia) Fund of Knowledge: Other (Decreased from premorbid baseline) Memory: Poor-recent Suicidal Ideation: Denies Homicidal Ideation: Denies Insight: Impaired Judgement: Impaired Impulse Control: Poor (improved from admission) - Laboratory Result Diagrams: 10/15/17 06:44 10/15/17 06:44 Assessment and Plan (1) Psychosis Qualifiers: Psychosis type: unspecified psychosis type Qualified Code(s): F29 - Unspecified psychosis not due to a substance or known physiological condition Current visit: Yes Status: Acute (2) Major neurocognitive disorder Problem details: Moderate, with behavioral disturbance Etiology: Lewy body dementia vs. frontotemporal vs. mixed Other medical problems: Chronic atrial fibrillation Hypertension Hyperlipidemia BPH Current visit: Yes Status: Acute PRN Ativan increased to 1mg, will d/c AM Zyprexa as it does not seem to be effective and patient has been more agitated in AM recent days. Awaiting planning with family, CM in regards to placement with Hospice support. Estimated Total Length of Stay (Days): 10 Hospital Course Summary Disclaimer: The visit summary below is not to be considered part of the above Progress Note. Hospital Course: Impression Dementia with behaviors Hallucinations Paranoia Chronic atrial fibrillation Hypertension Hyperlipidemia BPH Plan Agree with admission to the [facility] unit under the care of Dr. Guo for acute behaviors. Home medications reviewed. Continue on Cardizem, lisinopril, Maxide for treatment of hypertension and atrial fib. Continue on chronic anticoagulation, Pradaxa He may have regular diet Encourage patient to participate in unit activities and provide a safe environment The hospitalists services will continue to follow patient during her hospitalization. At time of discharge medical care will return to PCP Dr Henrik Brown 10/03/17 Psych: Continue home medications, monitor behavior. 10/04/17 Psych: Will start Depakote DR 500mg PO daily with dinner to [employer] own, irritability as patient seems to be sensitive to neuroleptics; monitor response. 10/05/17 Psych: Will add Depakote 250mg PO q AM with breakfast and continue 500mg PO at dinner. Will schedule Ativan 1mg PO BID at 1800, 2100. Although patient is unsteady with this medication, we need to be able to control his agitation to protect the safety of staff until Depakote is titrated higher. He is quite sensitive to neuroleptics, which seem to increase agitation. 10/06/17 Psych: Continue current care while Depakote approaches steady-state; will then try to decrease Ativan once calmer. 10/07/17 Psych: Will increase Depakote DR to 250mg PO BID at 0800, 1200 and 500mg at 1800. Will decrease Ativan to 0.5mg PO at 1800 and continue 1mg PO q HS. He still has additional PRNs available for agitation. 10/08/17 Doing better. Continues to have VH but no behaviors or PRN's. Continue current care 10/09/17 Psych- Remains irritable at times. Continue current care Plan 10/09/17 PCP: Dr. Henrik Brown Patient continues to have significant behavior issues. Medication adjustment per psychiatry. Low grade fever yesterday- if persists, consider CXR. He does not appear acutely ill today. Continue current medication for BP and Atrial Fib. Both HR and BP is stable. Assess A1c, Lipid panel to meet core measures. Repeat basic labs in am. 10/10/17 Psych: Plan for CBC, VPA and ammonia level in the AM; adjust Depakote accordingly. 10/12/17 Psych: Depakote DR increased on 10/12 to 500mg PO q AM, 500mg PO mid-day and 750mg PO q HS after VPA level drawn. Plan to hold Seroquel and monitor response while Depakote reaches new steady-state. Monitor WBC to see if patient can even tolerate Depakote or another mood stabilizer is needed. 10/13/17 Psych: Plan to restart Seroquel 75mg PO q HS; continue current dose of Depakote. Plan to check level in AM on 10/15 as well as CBC to monitor blood cell counts relative to Depakote. 10/14/17 Psych: Plan to check VPA level in AM, as well as CBC and CMP. May adjust Depakote or have to look for other options if WBC continues to drop. 10/15/17 Psych- Pt remains confused but no behaviors. WBC remains low but steady. Will discuss with Dr. Guo. 10/15/17 hospitalist- A.M. labs reviewed. White count is not elevated. CXR was essentially neg. Review of his temperatures since admission, he periodically runs up to 99.9, this may just be his baseline. VSS's, nurses notes, labs and psych notes reviewed. Medically stable at this time. No changes. 10/16/17 Psych- PT remains agitated at times. Continue current care 10/17/17 hospitalist The detached part of the nail was grasped and remainder of the nail was gently removed from the nail base. Patient tolerated this well. Patient had minimal bleeding. Area will be cleaned with peroxide and dressed with triple antibiotic ointment and a Band-Aid. Nurses will watch for infection. Keep the area clean and dry. Will likely not need anything for pain. 10/17/17 Psych: Increase Depakote sprinkles to 750mg PO TID; continue to monitor WBC as we have limited other medication options for behavioral dyscontrol and patient has not responded well to other medications in the past. Calmed this morning with PRN Zyprexa 2.5mg so will schedule in AM and give trial of Zyprexa 5mg at HS as well rather than Seroquel. Monitor response. Family meeting tomorrow. 10/18/17 Psych: Family in agreement with looking for placement and consulting Hospice. 10/19/17 Psych: PRN Ativan increased to 1mg, will d/c AM Zyprexa as it does not seem to be effective and patient has been more agitated in AM recent days. Awaiting planning with family, CM in regards to placement with Hospice support.
[2017-10-19] MEDS: MORPHINE SULFATE 10mg/0.5ml ORAL LIQ SL PRN (16:38)
[2017-10-19] MEDS: LORazepam 1 MG TABLET PO SCH ×2 (19:54→21:20)
[2017-10-20] MEDS: LORazepam INTENSOL 1mg/0.5ml ORAL LIQUID PO PRN (06:31)
[2017-10-20] MEDS: MORPHINE SULFATE 10mg/0.5ml ORAL LIQ SL PRN ×3 (07:25→11:58)
[2017-10-20] MEDS: DIVALPROEX SPRINKLE 125 MG CAPSULE PO SCH ×3 (08:14→18:38)
[2017-10-20] MEDS: TRIAMTERENE/HCTZ 37.5 MG-25 MG TABLET PO SCH (08:15)
[2017-10-20] MEDS: APIXABAN 5 MG TABLET PO SCH ×2 (08:16→19:28)
[2017-10-20] MEDS: MULTI-VITAMIN PLAIN TABLET PO SCH (08:16)
[2017-10-20] MEDS: FENOFIBRATE 160 MG TABLET PO SCH (08:16)
[2017-10-20] MEDS: SERTRALINE 50 MG TABLET PO SCH (08:16)
[2017-10-20] MEDS: LISINOPRIL 20 MG TABLET PO SCH ×2 (08:20→19:28)
--- NOTE | 2017-10-20 15:37 | Neuropsych Progress Note ---
[facility] Subjective Date: 10/20/17 - Sujective/Severity of Illness Medications: Acetaminophen (Tylenol) 325 - 650 mg PO Q5H PRN PRN Reason: Discomfort Last Admin: 10/16/17 20:13 Dose: 650 mg Apixaban (Eliquis) 5 mg PO BID [facility] Last Admin: 10/20/17 08:16 Dose: 5 mg Diltiazem HCl (Cardizem Cd 180 Mg) 180 mg PO DAILY [facility] Last Admin: 10/20/17 08:15 Dose: 180 mg Divalproex Sodium (Depakote Sprinkle) 750 mg PO ,, [facility] Last Admin: 10/20/17 11:45 Dose: 750 mg Fenofibrate (Lofibra) 160 mg PO WB [facility] Last Admin: 10/20/17 08:16 Dose: 160 mg Lisinopril (Prinivil) 20 mg PO BID [facility] Last Admin: 10/20/17 08:20 Dose: Not Given Lorazepam (Ativan) 1 mg PO 21 [facility] Last Admin: 10/19/17 21:20 Dose: Not Given Lorazepam (Ativan Inj) 1 mg IM Q4H PRN PRN Reason: Extreme agitation Last Admin: 10/19/17 13:52 Dose: 1 mg Lorazepam (Ativan Intensol) 1 mg PO Q4H PRN Last Admin: 10/20/17 06:31 Dose: 1 mg Lorazepam (Ativan) 1 mg PO Q4H PRN PRN Reason: Extreme agitation Last Admin: 10/19/17 12:17 Dose: 1 mg Morphine Sulfate (Roxanol Oral Liq) 0 mg SL Q2H PRN Last Admin: 10/20/17 11:58 Dose: 10 mg Multivitamins (Theragran) 1 tab PO DAILY [facility] Last Admin: 10/20/17 08:16 Dose: 1 tab Olanzapine (Zyprexa Zydis) 7.5 mg PO HS [facility] Last Admin: 10/19/17 21:20 Dose: Not Given Sertraline HCl (Zoloft) 50 mg PO DAILY [facility] Last Admin: 10/20/17 08:16 Dose: 50 mg Triamterene/HCTZ (Maxzide-25 Eqv) 0.5 tab PO DAILY [facility] Last Admin: 10/20/17 08:15 Dose: 0.5 tab Subjective: Patient seen and chart reviewed. Case discussed with treatment team. Patient is sleeping at time of interview after being intermittently agitated/ labile and cooperative throughout the morning. Nursing staff report patient has behaved similarly over past 24 hours, requiring PRN medications on multiple occasions. Family has decided on Hospice and comfort care, thus Roxanol was started yesterday with some effect. He is continuing to get Depakote for behavioral dyscontrol but Zyprexa has since been held. Patient slept ~10 hours overnight. VSS. Patient often requires assistance to eat well. MSE below based in part on my last interaction with patient and nursing report. Start Time: 12:00 Stop Time: 12:20 Mental Status Exam Vitals: Last Vital Signs Temp 97.6 F 10/20/17 08:00 Pulse 80 10/20/17 08:00 Resp 20 10/20/17 08:00 BP 99/67 10/20/17 08:00 Pulse Ox 95 10/20/17 08:00 Height: 1.78 m Weight: 99.2 kg - Mental Status Exam Muscle Strength/Tone: Normal Dressing: Casual Grooming: Fair Attitude: Combative (at times) Motor Activity: Retardation Eye Contact: Good Speech: Slowed Volume: Normal Rhythm: Appropriate Rhythm Orientation: Disoriented to time, Disoriented to situation, Oriented to person, Oriented to place Mood: Neutral (labile affect at times) Rate of Thoughts: Delayed Thought Organization: Confused Associations: Illogical (at times) Abstract Reasoning: Poor abstract reasoning Thought Content: Other (confusion) Perception/Psychotic: Psychotic Current Hallucinations: Visual (frequent, vivid), Tactile Language: Naming Intact (though has some expressive aphasia) Fund of Knowledge: Other (Decreased from premorbid baseline) Memory: Poor-recent Suicidal Ideation: Denies Homicidal Ideation: Denies Insight: Impaired Judgement: Impaired Impulse Control: Poor (improved from admission) - Laboratory Result Diagrams: 10/15/17 06:44 10/15/17 06:44 Assessment and Plan (1) Psychosis Qualifiers: Psychosis type: unspecified psychosis type Qualified Code(s): F29 - Unspecified psychosis not due to a substance or known physiological condition Current visit: Yes Status: Acute (2) Major neurocognitive disorder Problem details: Moderate, with behavioral disturbance Etiology: Lewy body dementia vs. frontotemporal vs. mixed Other medical problems: Chronic atrial fibrillation Hypertension Hyperlipidemia BPH Current visit: Yes Status: Acute Have now held Zyprexa; patient accepted into Hospice/comfort care but they likely will not be able to accept patient for transfer until Tuesday. Will continue Depakote for the time being to monitor mood lability and aggression but may consider taper if behavior allows. Estimated Total Length of Stay (Days): 10 Hospital Course Summary Disclaimer: The visit summary below is not to be considered part of the above Progress Note. Hospital Course: Impression Dementia with behaviors Hallucinations Paranoia Chronic atrial fibrillation Hypertension Hyperlipidemia BPH Plan Agree with admission to the [facility] unit under the care of Dr. Guo for acute behaviors. Home medications reviewed. Continue on Cardizem, lisinopril, Maxide for treatment of hypertension and atrial fib. Continue on chronic anticoagulation, Pradaxa He may have regular diet Encourage patient to participate in unit activities and provide a safe environment The hospitalists services will continue to follow patient during her hospitalization. At time of discharge medical care will return to PCP Dr Henrik Brown 10/03/17 Psych: Continue home medications, monitor behavior. 10/04/17 Psych: Will start Depakote DR 500mg PO daily with dinner to target , irritability as patient seems to be sensitive to neuroleptics; monitor response. 10/05/17 Psych: Will add Depakote 250mg PO q AM with breakfast and continue 500mg PO at dinner. Will schedule Ativan 1mg PO BID at 1800, 2100. Although patient is unsteady with this medication, we need to be able to control his agitation to protect the safety of staff until Depakote is titrated higher. He is quite sensitive to neuroleptics, which seem to increase agitation. 10/06/17 Psych: Continue current care while Depakote approaches steady-state; will then try to decrease Ativan once calmer. 10/07/17 Psych: Will increase Depakote DR to 250mg PO BID at 0800, 1200 and 500mg at 1800. Will decrease Ativan to 0.5mg PO at 1800 and continue 1mg PO q HS. He still has additional PRNs available for agitation. 10/08/17 Doing better. Continues to have VH but no behaviors or PRN's. Continue current care 10/09/17 Psych- Remains irritable at times. Continue current care Plan 10/09/17 PCP: Dr. Henrik Brown Patient continues to have significant behavior issues. Medication adjustment per psychiatry. Low grade fever yesterday- if persists, consider CXR. He does not appear acutely ill today. Continue current medication for BP and Atrial Fib. Both HR and BP is stable. Assess A1c, Lipid panel to meet core measures. Repeat basic labs in am. 10/10/17 Psych: Plan for CBC, VPA and ammonia level in the AM; adjust Depakote accordingly. 10/12/17 Psych: Depakote DR increased on 10/12 to 500mg PO q AM, 500mg PO mid-day and 750mg PO q HS after VPA level drawn. Plan to hold Seroquel and monitor response while Depakote reaches new steady-state. Monitor WBC to see if patient can even tolerate Depakote or another mood stabilizer is needed. 10/13/17 Psych: Plan to restart Seroquel 75mg PO q HS; continue current dose of Depakote. Plan to check level in AM on 10/15 as well as CBC to monitor blood cell counts relative to Depakote. 10/14/17 Psych: Plan to check VPA level in AM, as well as CBC and CMP. May adjust Depakote or have to look for other options if WBC continues to drop. 10/15/17 Psych- Pt remains confused but no behaviors. WBC remains low but steady. Will discuss with Dr. Guo. 10/15/17 hospitalist- A.M. labs reviewed. White count is not elevated. CXR was essentially neg. Review of his temperatures since admission, he periodically runs up to 99.9, this may just be his baseline. VSS's, nurses notes, labs and psych notes reviewed. Medically stable at this time. No changes. 10/16/17 Psych- PT remains agitated at times. Continue current care 10/17/17 hospitalist The detached part of the nail was grasped and remainder of the nail was gently removed from the nail base. Patient tolerated this well. Patient had minimal bleeding. Area will be cleaned with peroxide and dressed with triple antibiotic ointment and a Band-Aid. Nurses will watch for infection. Keep the area clean and dry. Will likely not need anything for pain. 10/17/17 Psych: Increase Depakote sprinkles to 750mg PO TID; continue to monitor WBC as we have limited other medication options for behavioral dyscontrol and patient has not responded well to other medications in the past. Calmed this morning with PRN Zyprexa 2.5mg so will schedule in AM and give trial of Zyprexa 5mg at HS as well rather than Seroquel. Monitor response. Family meeting tomorrow. 10/18/17 Psych: Family in agreement with looking for placement and consulting Hospice. 10/19/17 Psych: PRN Ativan increased to 1mg, will d/c AM Zyprexa as it does not seem to be effective and patient has been more agitated in AM recent days. Awaiting planning with family, CM in regards to placement with Hospice support. 10/20/17 Psych: Have now held Zyprexa; patient accepted into Hospice/comfort care but they likely will not be able to accept patient for transfer until Tuesday. Will continue Depakote for the time being to monitor mood lability and aggression but may consider taper if behavior allows.
[2017-10-20] MEDS: LORazepam 1 MG TABLET PO SCH (19:26)
[2017-10-20] MEDS: OLANZapine ODT 5 MG TABLET PO SCH (19:29)
[2017-10-21] MEDS: MORPHINE SULFATE 10mg/0.5ml ORAL LIQ SL PRN ×5 (02:45→20:29)
[2017-10-21] MEDS: LISINOPRIL 20 MG TABLET PO SCH ×3 (02:45→20:26)
[2017-10-21] MEDS: APIXABAN 5 MG TABLET PO SCH ×3 (02:45→20:27)
[2017-10-21] MEDS: OLANZapine ODT 5 MG TABLET PO SCH (02:46)
[2017-10-21] MEDS: LORazepam 1 MG TABLET PO SCH (02:46)
[2017-10-21] MEDS: LORazepam INTENSOL 1mg/0.5ml ORAL LIQUID PO PRN (03:17)
[2017-10-21] MEDS: DIVALPROEX SPRINKLE 125 MG CAPSULE PO SCH ×3 (10:40→20:28)
[2017-10-21] MEDS: SERTRALINE 50 MG TABLET PO SCH (10:44)
[2017-10-21] MEDS: TRIAMTERENE/HCTZ 37.5 MG-25 MG TABLET PO SCH (10:44)
[2017-10-21] MEDS: MULTI-VITAMIN PLAIN TABLET PO SCH (10:44)
[2017-10-21] MEDS: FENOFIBRATE 160 MG TABLET PO SCH (10:53)
[2017-10-21] MEDS ORDERED: BISACODYL 10 MG SUPPOSITORY RECTALLY PRN (16:18)
[2017-10-21] MEDS: LORazepam 0.5 MG TABLET PO SCH (20:26)
--- NOTE | 2017-10-21 23:43 | Neuropsych Progress Note ---
[facility] Subjective Date: 10/22/17 - Sujective/Severity of Illness Medications: Acetaminophen (Tylenol) 325 - 650 mg PO Q5H PRN PRN Reason: Discomfort Last Admin: 10/16/17 20:13 Dose: 650 mg Apixaban (Eliquis) 5 mg PO BID [facility] Last Admin: 10/21/17 20:27 Dose: 5 mg Bisacodyl (Dulcolax) 10 mg RECTALLY DAILY PRN PRN Reason: Constipation Diltiazem HCl (Cardizem Cd 180 Mg) 180 mg PO DAILY [facility] Last Admin: 10/21/17 10:47 Dose: 180 mg Divalproex Sodium (Depakote Sprinkle) 500 mg PO ,, [facility] Last Admin: 10/21/17 20:28 Dose: 500 mg Fenofibrate (Lofibra) 160 mg PO WB [facility] Last Admin: 10/21/17 10:53 Dose: 160 mg Lisinopril (Prinivil) 20 mg PO BID [facility] Last Admin: 10/21/17 20:26 Dose: 20 mg Lorazepam (Ativan Inj) 1 mg IM Q4H PRN PRN Reason: Extreme agitation Last Admin: 10/19/17 13:52 Dose: 1 mg Lorazepam (Ativan Intensol) 1 mg PO Q4H PRN Last Admin: 10/21/17 03:17 Dose: 1 mg Lorazepam (Ativan) 1 mg PO Q4H PRN PRN Reason: Extreme agitation Last Admin: 10/19/17 12:17 Dose: 1 mg Lorazepam (Ativan) 0.5 mg PO HS [facility] Last Admin: 10/21/17 20:26 Dose: 0.5 mg Morphine Sulfate (Roxanol Oral Liq) 0 mg SL Q2H PRN Last Admin: 10/21/17 20:29 Dose: 10 mg Multivitamins (Theragran) 1 tab PO DAILY [facility] Last Admin: 10/21/17 10:44 Dose: 1 tab Sertraline HCl (Zoloft) 50 mg PO DAILY [facility] Last Admin: 10/21/17 10:44 Dose: 50 mg Triamterene/HCTZ (Maxzide-25 Eqv) 0.5 tab PO DAILY [facility] Last Admin: 10/21/17 10:44 Dose: 0.5 tab Subjective: Patient seen and chart reviewed. Case discussed with treatment team. Patient is sleeping at time of interview after being intermittently agitated/ labile and cooperative throughout the morning. Nursing staff report patient has behaved similarly over past 24 hours, requiring PRN medications on multiple occasions. Family has decided on Hospice and comfort care, thus Roxanol was started on 10/20 with some effect. Patient slept 13.5 hours overnight. VSS. Patient often requires assistance to eat well. MSE below based in part on my last interaction with patient and nursing report. Start Time: 14:00 Stop Time: 14:20 Mental Status Exam Vitals: Last Vital Signs Temp 98.4 F 10/21/17 21:14 Pulse 90 10/21/17 21:14 Resp 18 10/21/17 21:14 BP 102/66 10/21/17 21:14 Pulse Ox 93 10/21/17 21:14 Height: 1.78 m Weight: 99.2 kg - Mental Status Exam Muscle Strength/Tone: Normal Dressing: Casual Grooming: Fair Attitude: Combative (at times) Motor Activity: Retardation Eye Contact: Good Speech: Slowed Volume: Normal Rhythm: Appropriate Rhythm Orientation: Disoriented to time, Disoriented to situation, Oriented to person, Oriented to place Mood: Neutral (labile affect at times) Rate of Thoughts: Delayed Thought Organization: Confused Associations: Illogical (at times) Abstract Reasoning: Poor abstract reasoning Thought Content: Other (confusion) Perception/Psychotic: Psychotic Current Hallucinations: Visual (frequent, vivid), Tactile Language: Naming Intact (though has some expressive aphasia) Fund of Knowledge: Other (Decreased from premorbid baseline) Memory: Poor-recent Suicidal Ideation: Denies Homicidal Ideation: Denies Insight: Impaired Judgement: Impaired Impulse Control: Poor (improved from admission) - Laboratory Result Diagrams: 10/15/17 06:44 10/15/17 06:44 Assessment and Plan (1) Psychosis Qualifiers: Psychosis type: unspecified psychosis type Qualified Code(s): F29 - Unspecified psychosis not due to a substance or known physiological condition Current visit: Yes Status: Acute (2) Major neurocognitive disorder Problem details: Moderate, with behavioral disturbance Etiology: Lewy body dementia vs. frontotemporal vs. mixed Other medical problems: Chronic atrial fibrillation Hypertension Hyperlipidemia BPH Current visit: Yes Status: Acute Continue holding Zyprexa; decrease Depakote to 500mg PO TID. Monitor for any increase in agitation/behaviors. Estimated Total Length of Stay (Days): 10 Hospital Course Summary Disclaimer: The visit summary below is not to be considered part of the above Progress Note. Hospital Course: Impression Dementia with behaviors Hallucinations Paranoia Chronic atrial fibrillation Hypertension Hyperlipidemia BPH Plan Agree with admission to the [facility] unit under the care of Dr. Guo for acute behaviors. Home medications reviewed. Continue on Cardizem, lisinopril, Maxide for treatment of hypertension and atrial fib. Continue on chronic anticoagulation, Pradaxa He may have regular diet Encourage patient to participate in unit activities and provide a safe environment The hospitalists services will continue to follow patient during her hospitalization. At time of discharge medical care will return to PCP Dr Henrik Brown 10/03/17 Psych: Continue home medications, monitor behavior. 10/04/17 Psych: Will start Depakote DR 500mg PO daily with dinner to target own, irritability as patient seems to be sensitive to neuroleptics; monitor response. 10/05/17 Psych: Will add Depakote 250mg PO q AM with breakfast and continue 500mg PO at dinner. Will schedule Ativan 1mg PO BID at 1800, 2100. Although patient is unsteady with this medication, we need to be able to control his agitation to protect the safety of staff until Depakote is titrated higher. He is quite sensitive to neuroleptics, which seem to increase agitation. 10/06/17 Psych: Continue current care while Depakote approaches steady-state; will then try to decrease Ativan once calmer. 10/07/17 Psych: Will increase Depakote DR to 250mg PO BID at 0800, 1200 and 500mg at 1800. Will decrease Ativan to 0.5mg PO at 1800 and continue 1mg PO q HS. He still has additional PRNs available for agitation. 10/08/17 Doing better. Continues to have VH but no behaviors or PRN's. Continue current care 10/09/17 Psych- Remains irritable at times. Continue current care Plan 10/09/17 PCP: Dr. Henrik Brown Patient continues to have significant behavior issues. Medication adjustment per psychiatry. Low grade fever yesterday- if persists, consider CXR. He does not appear acutely ill today. Continue current medication for BP and Atrial Fib. Both HR and BP is stable. Assess A1c, Lipid panel to meet core measures. Repeat basic labs in am. 10/10/17 Psych: Plan for CBC, VPA and ammonia level in the AM; adjust Depakote accordingly. 10/12/17 Psych: Depakote DR increased on 10/12 to 500mg PO q AM, 500mg PO mid-day and 750mg PO q HS after VPA level drawn. Plan to hold Seroquel and monitor response while Depakote reaches new steady-state. Monitor WBC to see if patient can even tolerate Depakote or another mood stabilizer is needed. 10/13/17 Psych: Plan to restart Seroquel 75mg PO q HS; continue current dose of Depakote. Plan to check level in AM on 10/15 as well as CBC to monitor blood cell counts relative to Depakote. 10/14/17 Psych: Plan to check VPA level in AM, as well as CBC and CMP. May adjust Depakote or have to look for other options if WBC continues to drop. 10/15/17 Psych- Pt remains confused but no behaviors. WBC remains low but steady. Will discuss with Dr. Guo. 10/15/17 hospitalist- A.M. labs reviewed. White count is not elevated. CXR was essentially neg. Review of his temperatures since admission, he periodically runs up to 99.9, this may just be his baseline. VSS's, nurses notes, labs and psych notes reviewed. Medically stable at this time. No changes. 10/16/17 Psych- PT remains agitated at times. Continue current care 10/17/17 hospitalist The detached part of the nail was grasped and remainder of the nail was gently removed from the nail base. Patient tolerated this well. Patient had minimal bleeding. Area will be cleaned with peroxide and dressed with triple antibiotic ointment and a Band-Aid. Nurses will watch for infection. Keep the area clean and dry. Will likely not need anything for pain. 10/17/17 Psych: Increase Depakote sprinkles to 750mg PO TID; continue to monitor WBC as we have limited other medication options for behavioral dyscontrol and patient has not responded well to other medications in the past. Calmed this morning with PRN Zyprexa 2.5mg so will schedule in AM and give trial of Zyprexa 5mg at HS as well rather than Seroquel. Monitor response. Family meeting tomorrow. 10/18/17 Psych: Family in agreement with looking for placement and consulting Hospice. 10/19/17 Psych: PRN Ativan increased to 1mg, will d/c AM Zyprexa as it does not seem to be effective and patient has been more agitated in AM recent days. Awaiting planning with family, CM in regards to placement with Hospice support. 10/20/17 Psych: Have now held Zyprexa; patient accepted into Hospice/comfort care but they likely will not be able to accept patient for transfer until Tuesday. Will continue Depakote for the time being to monitor mood lability and aggression but may consider taper if behavior allows. 10/21/17 Psych: Continue holding Zyprexa; decrease Depakote to 500mg PO TID. Monitor for any increase in agitation/behaviors.
[2017-10-22] MEDS: MORPHINE SULFATE 10mg/0.5ml ORAL LIQ SL PRN ×4 (02:11→21:24)
[2017-10-22] MEDS: LORazepam INTENSOL 1mg/0.5ml ORAL LIQUID PO PRN (07:59)
[2017-10-22] MEDS: FENOFIBRATE 160 MG TABLET PO SCH (08:00)
[2017-10-22] MEDS: LISINOPRIL 20 MG TABLET PO SCH ×2 (08:26→21:01)
[2017-10-22] MEDS: TRIAMTERENE/HCTZ 37.5 MG-25 MG TABLET PO SCH (08:27)
[2017-10-22] MEDS: MULTI-VITAMIN PLAIN TABLET PO SCH (08:27)
[2017-10-22] MEDS: APIXABAN 5 MG TABLET PO SCH ×2 (08:27→21:01)
[2017-10-22] MEDS: DIVALPROEX SPRINKLE 125 MG CAPSULE PO SCH ×3 (08:27→17:31)
[2017-10-22] MEDS: SERTRALINE 50 MG TABLET PO SCH (08:28)
--- NOTE | 2017-10-22 10:47 | Neuropsych Progress Note ---
[facility] Subjective Date: 10/22/17 - Sujective/Severity of Illness Medications: Acetaminophen (Tylenol) 325 - 650 mg PO Q5H PRN PRN Reason: Discomfort Last Admin: 10/16/17 20:13 Dose: 650 mg Apixaban (Eliquis) 5 mg PO BID [facility] Last Admin: 10/22/17 08:27 Dose: Not Given Bisacodyl (Dulcolax) 10 mg RECTALLY DAILY PRN PRN Reason: Constipation Diltiazem HCl (Cardizem Cd 180 Mg) 180 mg PO DAILY [facility] Last Admin: 10/22/17 08:26 Dose: Not Given Divalproex Sodium (Depakote Sprinkle) 500 mg PO [facility] Last Admin: 10/22/17 08:27 Dose: Not Given Fenofibrate (Lofibra) 160 mg PO WB [facility] Last Admin: 10/22/17 08:00 Dose: Not Given Lisinopril (Prinivil) 20 mg PO BID [facility] Last Admin: 10/22/17 08:26 Dose: Not Given Lorazepam (Ativan Inj) 1 mg IM Q4H PRN PRN Reason: Extreme agitation Last Admin: 10/19/17 13:52 Dose: 1 mg Lorazepam (Ativan Intensol) 1 mg PO Q4H PRN Last Admin: 10/22/17 07:59 Dose: 1 mg Lorazepam (Ativan) 1 mg PO Q4H PRN PRN Reason: Extreme agitation Last Admin: 10/19/17 12:17 Dose: 1 mg Lorazepam (Ativan) 0.5 mg PO HS [facility] Last Admin: 10/21/17 20:26 Dose: 0.5 mg Morphine Sulfate (Roxanol Oral Liq) 0 mg SL Q2H PRN Last Admin: 10/22/17 08:24 Dose: 10 mg Multivitamins (Theragran) 1 tab PO DAILY [facility] Last Admin: 10/22/17 08:27 Dose: Not Given Sertraline HCl (Zoloft) 50 mg PO DAILY [facility] Last Admin: 10/22/17 08:28 Dose: Not Given Triamterene/HCTZ (Maxzide-25 Eqv) 0.5 tab PO DAILY [facility] Last Admin: 10/22/17 08:27 Dose: Not Given Subjective: Patient seen and chart reviewed. Nursing reports pt is doing fairly well. Has been sleeping more but no behaviors. On face to face the pt is seen sleeping in a chair. He is some what difficult to arouse but does not appear to be in any distress. Tolerating meds Start Time: 10:00 Stop Time: 10:15 Mental Status Exam Vitals: Last Vital Signs Temp 97.2 F 10/22/17 08:00 Pulse 82 10/22/17 08:00 Resp 18 10/22/17 08:00 BP 110/67 10/22/17 08:00 Pulse Ox 98 10/22/17 08:00 Height: 1.78 m Weight: 99.2 kg - Mental Status Exam Muscle Strength/Tone: Normal Dressing: Casual Grooming: Fair Attitude: Combative (at times) Motor Activity: Retardation Eye Contact: Good Speech: Slowed Volume: Normal Rhythm: Appropriate Rhythm Orientation: Disoriented to time, Disoriented to situation, Oriented to person, Oriented to place Mood: Neutral (labile affect at times) Rate of Thoughts: Delayed Thought Organization: Confused Associations: Illogical (at times) Abstract Reasoning: Poor abstract reasoning Thought Content: Other (confusion) Perception/Psychotic: Psychotic Current Hallucinations: Visual (frequent, vivid), Tactile Language: Naming Intact (though has some expressive aphasia) Fund of Knowledge: Other (Decreased from premorbid baseline) Memory: Poor-recent Suicidal Ideation: Denies Homicidal Ideation: Denies Insight: Impaired Judgement: Impaired Impulse Control: Poor (improved from admission) - Laboratory Result Diagrams: 10/15/17 06:44 10/15/17 06:44 Assessment and Plan (1) Psychosis Qualifiers: Psychosis type: unspecified psychosis type Qualified Code(s): F29 - Unspecified psychosis not due to a substance or known physiological condition Current visit: Yes Status: Acute (2) Major neurocognitive disorder Problem details: Moderate, with behavioral disturbance Etiology: Lewy body dementia vs. frontotemporal vs. mixed Other medical problems: Chronic atrial fibrillation Hypertension Hyperlipidemia BPH Current visit: Yes Status: Acute Estimated Total Length of Stay (Days): 10 Hospital Course Summary Disclaimer: The visit summary below is not to be considered part of the above Progress Note. Hospital Course: Impression Dementia with behaviors Hallucinations Paranoia Chronic atrial fibrillation Hypertension Hyperlipidemia BPH Plan Agree with admission to the [facility] unit under the care of Dr. Guo for acute behaviors. Home medications reviewed. Continue on Cardizem, lisinopril, Maxide for treatment of hypertension and atrial fib. Continue on chronic anticoagulation, Pradaxa He may have regular diet Encourage patient to participate in unit activities and provide a safe environment The hospitalists services will continue to follow patient during her hospitalization. At time of discharge medical care will return to PCP Dr Henrik Brown 10/03/17 Psych: Continue home medications, monitor behavior. 10/04/17 Psych: Will start Depakote DR 500mg PO daily with dinner to [employer] owning, irritability as patient seems to be sensitive to neuroleptics; monitor response. 10/05/17 Psych: Will add Depakote 250mg PO q AM with breakfast and continue 500mg PO at dinner. Will schedule Ativan 1mg PO BID at 1800, 2100. Although patient is unsteady with this medication, we need to be able to control his agitation to protect the safety of staff until Depakote is titrated higher. He is quite sensitive to neuroleptics, which seem to increase agitation. 10/06/17 Psych: Continue current care while Depakote approaches steady-state; will then try to decrease Ativan once calmer. 10/07/17 Psych: Will increase Depakote DR to 250mg PO BID at 0800, 1200 and 500mg at 1800. Will decrease Ativan to 0.5mg PO at 1800 and continue 1mg PO q HS. He still has additional PRNs available for agitation. 10/08/17 Doing better. Continues to have VH but no behaviors or PRN's. Continue current care 10/09/17 Psych- Remains irritable at times. Continue current care Plan 10/09/17 PCP: Dr. Henrik Brown Patient continues to have significant behavior issues. Medication adjustment per psychiatry. Low grade fever yesterday- if persists, consider CXR. He does not appear acutely ill today. Continue current medication for BP and Atrial Fib. Both HR and BP is stable. Assess A1c, Lipid panel to meet core measures. Repeat basic labs in am. 10/10/17 Psych: Plan for CBC, VPA and ammonia level in the AM; adjust Depakote accordingly. 10/12/17 Psych: Depakote DR increased on 10/12 to 500mg PO q AM, 500mg PO mid-day and 750mg PO q HS after VPA level drawn. Plan to hold Seroquel and monitor response while Depakote reaches new steady-state. Monitor WBC to see if patient can even tolerate Depakote or another mood stabilizer is needed. 10/13/17 Psych: Plan to restart Seroquel 75mg PO q HS; continue current dose of Depakote. Plan to check level in AM on 10/15 as well as CBC to monitor blood cell counts relative to Depakote. 10/14/17 Psych: Plan to check VPA level in AM, as well as CBC and CMP. May adjust Depakote or have to look for other options if WBC continues to drop. 10/15/17 Psych- Pt remains confused but no behaviors. WBC remains low but steady. Will discuss with Dr. Guo. 10/15/17 hospitalist- A.M. labs reviewed. White count is not elevated. CXR was essentially neg. Review of his temperatures since admission, he periodically runs up to 99.9, this may just be his baseline. VSS's, nurses notes, labs and psych notes reviewed. Medically stable at this time. No changes. 10/16/17 Psych- PT remains agitated at times. Continue current care 10/17/17 hospitalist The detached part of the nail was grasped and remainder of the nail was gently removed from the nail base. Patient tolerated this well. Patient had minimal bleeding. Area will be cleaned with peroxide and dressed with triple antibiotic ointment and a Band-Aid. Nurses will watch for infection. Keep the area clean and dry. Will likely not need anything for pain. 10/17/17 Psych: Increase Depakote sprinkles to 750mg PO TID; continue to monitor WBC as we have limited other medication options for behavioral dyscontrol and patient has not responded well to other medications in the past. Calmed this morning with PRN Zyprexa 2.5mg so will schedule in AM and give trial of Zyprexa 5mg at HS as well rather than Seroquel. Monitor response. Family meeting tomorrow. 10/18/17 Psych: Family in agreement with looking for placement and consulting Hospice. 10/19/17 Psych: PRN Ativan increased to 1mg, will d/c AM Zyprexa as it does not seem to be effective and patient has been more agitated in AM recent days. Awaiting planning with family, CM in regards to placement with Hospice support. 10/20/17 Psych: Have now held Zyprexa; patient accepted into Hospice/comfort care but they likely will not be able to accept patient for transfer until Tuesday. Will continue Depakote for the time being to monitor mood lability and aggression but may consider taper if behavior allows. 10/22/17 Psych- Continue current care. Placement on Tuesday
[2017-10-22] MEDS: LORazepam 0.5 MG TABLET PO SCH (21:01)
[2017-10-23] MEDS: FENOFIBRATE 160 MG TABLET PO SCH (07:45)
[2017-10-23] MEDS: DIVALPROEX SPRINKLE 125 MG CAPSULE PO SCH ×2 (07:45→12:18)
[2017-10-23] MEDS: MORPHINE SULFATE 10mg/0.5ml ORAL LIQ SL PRN ×7 (07:51→22:13)
[2017-10-23] MEDS: LORazepam INTENSOL 1mg/0.5ml ORAL LIQUID PO PRN ×4 (08:06→23:02)
--- NOTE | 2017-10-23 08:06 | Progress Note ---
<Janis Walker - Last Filed: 10/23/17 08:05> Progress Note: Patient has been accepted into Hospice care and will likely be transferred out tomorrow. BP's have been low. Nursing reports some apneic episodes up to 15 sec. Will DC Eliquis and antihypertensive meds. <Kulwinder Huffman P - Last Filed: 10/23/17 21:36> Progress Note: 6:45 PM subjective: Called back to generations at behest of nurse practitioner Tiffanie Alfaro, charge nurse in generations, and family. Apparently the patient had been rather agitated and going up and down the halls. He had been given a repeat of his Ativan and oral morphine. Patient was restless in bed at the time of me seeing him, nonverbal. Objective: no apparent medical distress. Restless and nonverbal but no apparent distress at this time. Much less agitated than had been reported. Lung espinal clear to auscultation bilaterally. Cardiovascular S1 S2 regular rate and rhythm. Periphery warm with adequate capillary refill and no significant edema Assessment and plan: delirium. Appears improving. Patient is a comfort care level and not to be resuscitated. Patient is transitioning over to hospice care out of the facility tomorrow. Increased Ativan buy oral and intramuscular methods to 2 mg Q4 hours PRN. We'll check in on the patient after next dosing to see is status 9:30 PM: nursing reports patient has had his 2 mg dose and has not been up out of bed since. Appears to be resting more comfortably at this time with nasal cannula oxygen in his mouth due to mouth breathing.
[2017-10-23] MEDS: MULTI-VITAMIN PLAIN TABLET PO SCH (08:36)
[2017-10-23] MEDS: SERTRALINE 50 MG TABLET PO SCH (08:37)
--- NOTE | 2017-10-23 10:42 | Neuropsych Progress Note ---
[facility] Subjective Date: 10/23/17 - Sujective/Severity of Illness Medications: Acetaminophen (Tylenol) 325 - 650 mg PO Q5H PRN PRN Reason: Discomfort Last Admin: 10/16/17 20:13 Dose: 650 mg Bisacodyl (Dulcolax) 10 mg RECTALLY DAILY PRN PRN Reason: Constipation Divalproex Sodium (Depakote Sprinkle) 500 mg PO , [facility] Last Admin: 10/23/17 07:45 Dose: Not Given Lorazepam (Ativan Inj) 1 mg IM Q4H PRN PRN Reason: Extreme agitation Last Admin: 10/19/17 13:52 Dose: 1 mg Lorazepam (Ativan Intensol) 1 mg PO Q4H PRN Last Admin: 10/23/17 08:06 Dose: 0.5 mg Lorazepam (Ativan) 1 mg PO Q4H PRN PRN Reason: Extreme agitation Last Admin: 10/19/17 12:17 Dose: 1 mg Lorazepam (Ativan) 0.5 mg PO HS [facility] Last Admin: 10/22/17 21:01 Dose: Not Given Morphine Sulfate (Roxanol Oral Liq) 0 mg SL Q2H PRN Last Admin: 10/23/17 10:10 Dose: 10 mg Multivitamins (Theragran) 1 tab PO DAILY [facility] Last Admin: 10/23/17 08:36 Dose: Not Given Sertraline HCl (Zoloft) 50 mg PO DAILY [facility] Last Admin: 10/23/17 08:37 Dose: Not Given Subjective: Patient seen and chart reviewed. Nursing reports pt has been sleepy and confused. has VH and is picking at the air. Is unable to swallow currently. Medical team discontinued all meds. On face to face the pt is resting quietly in his chair. He does not appear to be in any distress. Start Time: 10:00 Stop Time: 10:15 Mental Status Exam Vitals: Last Vital Signs Temp 97.8 F 10/23/17 09:07 Pulse 76 10/23/17 09:07 Resp 14 10/23/17 09:07 BP 89/57 10/23/17 09:07 Pulse Ox 91 10/23/17 09:07 Height: 1.78 m Weight: 99.2 kg - Mental Status Exam Muscle Strength/Tone: Normal Dressing: Casual Grooming: Fair Attitude: Cooperative Motor Activity: Retardation Eye Contact: Poor Speech: Slowed Volume: Soft Rhythm: Slurred Orientation: Disoriented to time, Disoriented to place, Disoriented to situation , Oriented to person Mood: Neutral (labile affect at times) Rate of Thoughts: Delayed Thought Organization: Confused Associations: Illogical (at times) Abstract Reasoning: Poor abstract reasoning Thought Content: Other (confusion) Perception/Psychotic: Psychotic Current Hallucinations: Visual (frequent, vivid), Tactile Language: Naming Intact (though has some expressive aphasia) Fund of Knowledge: Other (Decreased from premorbid baseline) Memory: Poor-recent Suicidal Ideation: Denies Homicidal Ideation: Denies Insight: Impaired Judgement: Impaired Impulse Control: Poor (improved from admission) - Laboratory Result Diagrams: 10/15/17 06:44 10/15/17 06:44 Assessment and Plan (1) Psychosis Qualifiers: Psychosis type: unspecified psychosis type Qualified Code(s): F29 - Unspecified psychosis not due to a substance or known physiological condition Current visit: Yes Status: Acute (2) Major neurocognitive disorder Problem details: Moderate, with behavioral disturbance Etiology: Lewy body dementia vs. frontotemporal vs. mixed Other medical problems: Chronic atrial fibrillation Hypertension Hyperlipidemia BPH Current visit: Yes Status: Acute Estimated Total Length of Stay (Days): 10 Hospital Course Summary Disclaimer: The visit summary below is not to be considered part of the above Progress Note. Hospital Course: Impression Dementia with behaviors Hallucinations Paranoia Chronic atrial fibrillation Hypertension Hyperlipidemia BPH Plan Agree with admission to the [facility] unit under the care of Dr. Guo for acute behaviors. Home medications reviewed. Continue on Cardizem, lisinopril, Maxide for treatment of hypertension and atrial fib. Continue on chronic anticoagulation, Pradaxa He may have regular diet Encourage patient to participate in unit activities and provide a safe environment The hospitalists services will continue to follow patient during her hospitalization. At time of discharge medical care will return to PCP Dr Henrik Brown 10/03/17 Psych: Continue home medications, monitor behavior. 10/04/17 Psych: Will start Depakote DR 500mg PO daily with dinner to [employer] sundowning, irritability as patient seems to be sensitive to neuroleptics; monitor response. 10/05/17 Psych: Will add Depakote 250mg PO q AM with breakfast and continue 500mg PO at dinner. Will schedule Ativan 1mg PO BID at 1800, 2100. Although patient is unsteady with this medication, we need to be able to control his agitation to protect the safety of staff until Depakote is titrated higher. He is quite sensitive to neuroleptics, which seem to increase agitation. 10/06/17 Psych: Continue current care while Depakote approaches steady-state; will then try to decrease Ativan once calmer. 10/07/17 Psych: Will increase Depakote DR to 250mg PO BID at 0800, 1200 and 500mg at 1800. Will decrease Ativan to 0.5mg PO at 1800 and continue 1mg PO q HS. He still has additional PRNs available for agitation. 10/08/17 Doing better. Continues to have VH but no behaviors or PRN's. Continue current care 10/09/17 Psych- Remains irritable at times. Continue current care Plan 10/09/17 PCP: Dr. Henrik Brown Patient continues to have significant behavior issues. Medication adjustment per psychiatry. Low grade fever yesterday- if persists, consider CXR. He does not appear acutely ill today. Continue current medication for BP and Atrial Fib. Both HR and BP is stable. Assess A1c, Lipid panel to meet core measures. Repeat basic labs in am. 10/10/17 Psych: Plan for CBC, VPA and ammonia level in the AM; adjust Depakote accordingly. 10/12/17 Psych: Depakote DR increased on 10/12 to 500mg PO q AM, 500mg PO mid-day and 750mg PO q HS after VPA level drawn. Plan to hold Seroquel and monitor response while Depakote reaches new steady-state. Monitor WBC to see if patient can even tolerate Depakote or another mood stabilizer is needed. 10/13/17 Psych: Plan to restart Seroquel 75mg PO q HS; continue current dose of Depakote. Plan to check level in AM on 10/15 as well as CBC to monitor blood cell counts relative to Depakote. 10/14/17 Psych: Plan to check VPA level in AM, as well as CBC and CMP. May adjust Depakote or have to look for other options if WBC continues to drop. 10/15/17 Psych- Pt remains confused but no behaviors. WBC remains low but steady. Will discuss with Dr. Guo. 10/15/17 hospitalist- A.M. labs reviewed. White count is not elevated. CXR was essentially neg. Review of his temperatures since admission, he periodically runs up to 99.9, this may just be his baseline. VSS's, nurses notes, labs and psych notes reviewed. Medically stable at this time. No changes. 10/16/17 Psych- PT remains agitated at times. Continue current care 10/17/17 hospitalist The detached part of the nail was grasped and remainder of the nail was gently removed from the nail base. Patient tolerated this well. Patient had minimal bleeding. Area will be cleaned with peroxide and dressed with triple antibiotic ointment and a Band-Aid. Nurses will watch for infection. Keep the area clean and dry. Will likely not need anything for pain. 10/17/17 Psych: Increase Depakote sprinkles to 750mg PO TID; continue to monitor WBC as we have limited other medication options for behavioral dyscontrol and patient has not responded well to other medications in the past. Calmed this morning with PRN Zyprexa 2.5mg so will schedule in AM and give trial of Zyprexa 5mg at HS as well rather than Seroquel. Monitor response. Family meeting tomorrow. 10/18/17 Psych: Family in agreement with looking for placement and consulting Hospice. 10/19/17 Psych: PRN Ativan increased to 1mg, will d/c AM Zyprexa as it does not seem to be effective and patient has been more agitated in AM recent days. Awaiting planning with family, CM in regards to placement with Hospice support. 10/20/17 Psych: Have now held Zyprexa; patient accepted into Hospice/comfort care but they likely will not be able to accept patient for transfer until Tuesday. Will continue Depakote for the time being to monitor mood lability and aggression but may consider taper if behavior allows. 10/21/17 Psych: Continue holding Zyprexa; decrease Depakote to 500mg PO TID. Monitor for any increase in agitation/behaviors. 10/23/17 Psych- Pt is slightly more confused and sedated today. Continue current care. D/C to hospice tomorrow
[2017-10-23] MEDS ORDERED: HALOPERIDOL 5 MG/ML INJECTION IM ONE (11:30)
[2017-10-23] MEDS ORDERED: LORazepam INTENSOL 1mg/0.5ml ORAL LIQUID SL PRN (18:51)
[2017-10-23 21:10] VITALS: O2SAT 92
[2017-10-24] MEDS: MORPHINE SULFATE 10mg/0.5ml ORAL LIQ SL PRN ×3 (02:37→10:08)
[2017-10-24] MEDS: LORazepam INTENSOL 1mg/0.5ml ORAL LIQUID PO PRN ×2 (04:31→10:09)
[2017-10-24] MEDS ORDERED: BISACODYL 10 MG SUPPOSITORY RECTALLY PRN (07:39)
[2017-10-24 08:43] VITALS: BP 97/57; PULSE 95; RESP 18; TEMP 99.2
--- NOTE | 2017-10-24 11:43 | Neuropsychiatric Disch Summary ---
Discharge Information Date of admission: 10/03/17 09:51 Anticipated date of discharge: 10/24/17 Attending Physician: Tere Guo MD Primary care physician: Henrik Brown Consults: 10/03/17 10:37 Case Management Consult [CONS] Routine Reason For Exam: Optimization of medical comorbidities Physician Consult [CONS] Routine Consulting Provider: Jorge Rhoades Reason For Exam: Optimization of medical comorbidities Ordering Provider has Notified Phlebotomist Prn: No - Discharge Diagnosis (1) Psychosis Status: Chronic (2) Major neurocognitive disorder Status: Chronic Major neurocognitive disorder, moderate to severe, 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 Last week he got upset that his family removed his gun, took the keys to the car, eloped and was missing for an entire day. Patient is overall pleasant during the day and admits to some memory problems, and that he may have some increased irritability. He endorses frustration but denies feeling depressed. He complains of some difficulty with words which is likely expressive aphasia (saying "South" when he means "North" for example). He denies SI or HI. He endorses frequent VH "for at least the last couple of months." He has quite limited insight into personality changes and many symptoms. His states that he has also had difficulty sleeping at night. His /DPOA is also present. There are some varying timelines, but it seems as though symptoms began ~2 years ago and have progressed even further in the past 2-3 months. He had a workup from a neurologist at who suggested Alzheimer's vs. LBD, but patient "has gotten worse" with any meds they have tried. 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 Patient struggled greatly with clock drawing. He was able to remember 2/3 words after a ~5 minute delay. Hospital Course This is a general summary of the patient's hospital course. For more details refer to the complete medical record. Hospital course: Impression Dementia with behaviors Hallucinations Paranoia Chronic atrial fibrillation Hypertension Hyperlipidemia BPH Plan Agree with admission to the [facility] unit under the care of Dr. Guo for acute behaviors. Home medications reviewed. Continue on Cardizem, lisinopril, Maxide for treatment of hypertension and atrial fib. Continue on chronic anticoagulation, Pradaxa He may have regular diet Encourage patient to participate in unit activities and provide a safe environment The hospitalists services will continue to follow patient during her hospitalization. At time of discharge medical care will return to PCP Dr Henrik Brown 10/03/17 Psych: Continue home medications, monitor behavior. 10/04/17 Psych: Will start Depakote DR 500mg PO daily with dinner to target own, irritability as patient seems to be sensitive to neuroleptics; monitor response. 10/05/17 Psych: Will add Depakote 250mg PO q AM with breakfast and continue 500mg PO at dinner. Will schedule Ativan 1mg PO BID at 1800, 2100. Although patient is unsteady with this medication, we need to be able to control his agitation to protect the safety of staff until Depakote is titrated higher. He is quite sensitive to neuroleptics, which seem to increase agitation. 10/06/17 Psych: Continue current care while Depakote approaches steady-state; will then try to decrease Ativan once calmer. 10/07/17 Psych: Will increase Depakote DR to 250mg PO BID at 0800, 1200 and 500mg at 1800. Will decrease Ativan to 0.5mg PO at 1800 and continue 1mg PO q HS. He still has additional PRNs available for agitation. 10/08/17 Doing better. Continues to have VH but no behaviors or PRN's. Continue current care 10/09/17 Psych- Remains irritable at times. Continue current care Plan 10/09/17 PCP: Dr. Henrik Brown Patient continues to have significant behavior issues. Medication adjustment per psychiatry. Low grade fever yesterday- if persists, consider CXR. He does not appear acutely ill today. Continue current medication for BP and Atrial Fib. Both HR and BP is stable. Assess A1c, Lipid panel to meet core measures. Repeat basic labs in am. 10/10/17 Psych: Plan for CBC, VPA and ammonia level in the AM; adjust Depakote accordingly. 10/12/17 Psych: Depakote DR increased on 10/12 to 500mg PO q AM, 500mg PO mid-day and 750mg PO q HS after VPA level drawn. Plan to hold Seroquel and monitor response while Depakote reaches new steady-state. Monitor WBC to see if patient can even tolerate Depakote or another mood stabilizer is needed. 10/13/17 Psych: Plan to restart Seroquel 75mg PO q HS; continue current dose of Depakote. Plan to check level in AM on 10/15 as well as CBC to monitor blood cell counts relative to Depakote. 10/14/17 Psych: Plan to check VPA level in AM, as well as CBC and CMP. May adjust Depakote or have to look for other options if WBC continues to drop. 10/15/17 Psych- Pt remains confused but no behaviors. WBC remains low but steady. Will discuss with Dr. Guo. 10/15/17 hospitalist- A.M. labs reviewed. White count is not elevated. CXR was essentially neg. Review of his temperatures since admission, he periodically runs up to 99.9, this may just be his baseline. VSS's, nurses notes, labs and psych notes reviewed. Medically stable at this time. No changes. 10/16/17 Psych- PT remains agitated at times. Continue current care 10/17/17 hospitalist The detached part of the nail was grasped and remainder of the nail was gently removed from the nail base. Patient tolerated this well. Patient had minimal bleeding. Area will be cleaned with peroxide and dressed with triple antibiotic ointment and a Band-Aid. Nurses will watch for infection. Keep the area clean and dry. Will likely not need anything for pain. 10/17/17 Psych: Increase Depakote sprinkles to 750mg PO TID; continue to monitor WBC as we have limited other medication options for behavioral dyscontrol and patient has not responded well to other medications in the past. Calmed this morning with PRN Zyprexa 2.5mg so will schedule in AM and give trial of Zyprexa 5mg at HS as well rather than Seroquel. Monitor response. Family meeting tomorrow. 10/18/17 Psych: Family in agreement with looking for placement and consulting Hospice. 10/19/17 Psych: PRN Ativan increased to 1mg, will d/c AM Zyprexa as it does not seem to be effective and patient has been more agitated in AM recent days. Awaiting planning with family, CM in regards to placement with Hospice support. 10/20/17 Psych: Have now held Zyprexa; patient accepted into Hospice/comfort care but they likely will not be able to accept patient for transfer until Tuesday. Will continue Depakote for the time being to monitor mood lability and aggression but may consider taper if behavior allows. 10/21/17 Psych: Continue holding Zyprexa; decrease Depakote to 500mg PO TID. Monitor for any increase in agitation/behaviors. 10/23/17 Psych- Pt is slightly more confused and sedated today. Continue current care. D/C to hospice tomorrow Resuscitation Status: Comfort Measures Only Discharge Plan - Med Rec/Dispo [place] Instructions: Dementia (GEN) Additional Instructions: Patient will be seen on rounds by the Kitchen Help Handyman for Hosp. follow-up. No Mental Health appt. scheduled due to patient receiving Hospice services. Discharge Diagnosis: IN CASE OF PSYCHIATRIC EMERGENCY, CONTACT [facility] STAFF AT [phone] ( available 24 hrs daily). Prescriptions: New LORazepam INJ [Ativan Inj] 2 mg IM Q4H PRN vial PRN Reason: Extreme Agitation LORazepam INTENSOL [Ativan Intensol] 2 mg SL Q2H PRN ml PRN Reason: Agitation LORazepam INTENSOL [Ativan Intensol] 1 mg PO Q4H PRN ml PRN Reason: Agitation Morphine Sulfate Oral Liq [Roxanol Oral Liq] 10 mg SL Q2H PRN syringe PRN Reason: Pain Discontinued LORazepam [Ativan] 0.5 mg PO BID PRN PRN Reason: Anxiety Quetiapine Fumarate [Seroquel] 2 mg PO TID Sertraline [Zoloft] 1 tab PO DAILY Dabigatran [Pradaxa] 1 cap PO BID Triamterene/Hydrochlorothiazid [Triamterene-Hctz 37.5-25 mg Cp] 0.5 tab PO DAILY Lisinopril [Zestril] 20 mg PO BID dilTIAZem HCl [Dilt-Xr] 1 tab PO DAILY Multivitamin [One Daily] 1 tab PO DAILY Fenofibrate [Lofibra] 160 mg PO DAILY - Disposition 51 To Hospice Med Facility - Dismissal Complete Discharge Instructions are:: Complete
== END 2017-10-24 10:18 | disposition hospice, inpatient (51) | DRG 57 ==
LOC: ED 07:58 → GEN 09:51
PROVIDERS: ADMIT Psychiatry & Neurology Psychiatry; ATTEND Psychiatry & Neurology Psychiatry